=== PATIENT | female | born 1970 | race Caucasian/White ===

== ENCOUNTER 2016-07-25 08:09 | Emergency (ER) | payer SELFPAY ==
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
[2016-07-25 09:59] VITALS: BP 131/75
== END 2016-07-25 09:59 | disposition home or self-care (01) ==
LOC: ER 08:09
DX: M54.2 Cervicalgia (principal); R51 Headache; V87.7XXA Person injured in collision between other specified motor vehicles (traffic), initial encounter; F17.200 Nicotine dependence, unspecified, uncomplicated
CPT/HCPCS: 99283

== ENCOUNTER 2016-08-07 08:10 | Emergency (ER) | payer SELFPAY ==
--- NOTE | 2016-08-07 09:04 | ER Document Report ---
ED Extremity Problem, Lower - General Time seen by provider: 09:00 Mode of Arrival: Ambulatory Information source: Patient TRAVEL OUTSIDE OF THE [place] IN LAST 30 DAYS: No - HPI Patient complains to provider of: Pain Location: Leg Associated symptoms: Other - See above - General Chief Complaint: Leg Pain Stated Complaint: THIGH PAIN Notes: Patient is a 46 year old female who presents to the emergency department complaining of right thigh pain. Patient states that she was walking for about 3 hrs 3 days ago going up and down the stairs of the [facility] in [place]. Patient also complains of pain in her left buttock that is exacerbated by pressure. (ANGELI LEUNG) - Related Data Allergies/Adverse Reactions: divalproex sodium [From Depakote] Allergy (Verified 02/27/16 18:30) hydromorphone HCl [From Dilaudid] Allergy (Verified 02/27/16 18:30) morphine [Morphine] Allergy (Verified 02/27/16 18:30) nalbuphine HCl [From Nubain] Allergy (Verified 02/27/16 18:30) niacin [Niacin] Allergy (Verified 02/27/16 18:30) oxycodone HCl [From Percocet] Allergy (Verified 02/27/16 18:30) Past Medical History - General Information source: Patient - Social History Smoking Status: Unknown if Ever Smoked Family History: Reviewed & Not Pertinent, Arthritis, CAD - Father with heart attack at 55., CVA, DM, Hyperlipidemia, Hypertension, Thyroid Disfunction Patient has suicidal ideation: No Patient has homicidal ideation: No - Past Medical History Cardiac Medical History: Reports: Hx Hypercholesterolemia, Hx Hypertension Pulmonary Medical History: Reports: Hx Asthma Neurological Medical History: Reports: Hx Migraine Endocrine Medical History: Reports: Hx Diabetes Mellitus Type 2 Renal/ Medical History: Reports: Hx Ovarian Cysts GI Medical History: Reports: Hx Gastroesophageal Reflux Disease, Hx Ulcer Musculoskeltal Medical History: Reports Hx Arthritis Psychiatric Medical History: Reports: Hx Attention Deficit Hyperactivity Disorder Past Surgical History: Reports: Hx Adenoidectomy, Hx Section, Hx Cholecystectomy, Hx Gynecologic Surgery - Ovarian cyst resection, Hx Oral Surgery - [place] teeth, Hx Tonsillectomy, Hx Tubal Ligation - Immunizations Hx Diphtheria, Pertussis, Tetanus Vaccination: Yes Hx Pneumococcal Vaccination: 01/07/13 Review of Systems - Review of Systems Constitutional: No symptoms reported EENT: No symptoms reported Cardiovascular: No symptoms reported Respiratory: No symptoms reported Gastrointestinal: No symptoms reported Genitourinary: No symptoms reported Female Genitourinary: No symptoms reported Musculoskeletal: See HPI, Other - leg and buttock pain Skin: No symptoms reported Hematologic/Lymphatic: No symptoms reported Neurological/Psychological: No symptoms reported -: Yes All other systems reviewed and negative Physical Exam - Vital signs Interpretation: Normal - General General appearance: Appears well, Alert - HEENT Head: Normocephalic, Atraumatic - Respiratory Respiratory status: No respiratory distress - Abdominal Inspection: Other - overweight - Extremities General upper extremity: Normal inspection General lower extremity: Tender - Right anterior lateral thigh muscle is exquisitely tender to palpation. Left buttock, posterior hip aspect tender to palpation - Neurological Neuro grossly intact: Yes Cognition: Normal Orientation: AAOx4 Rocael Coma Scale Eye Opening: Spontaneous [place] Coma Scale Verbal: Oriented Rocael Coma Scale Motor: Obeys Commands Rocael Coma Scale Total: 15 Speech: Normal - Psychological Associated symptoms: Normal affect, Normal mood - Skin Skin Temperature: Warm Skin Moisture: Dry Skin Color: Normal Discharge - Discharge Clinical Impression: Muscle strain of right thigh Qualifiers: Encounter type: initial encounter Qualified Code(s): S76.911A - Strain of unspecified muscles, fascia and tendons at thigh level, right thigh, initial encounter Muscle strain of left gluteal region Qualifiers: Encounter type: initial encounter Qualified Code(s): S76.312A - Strain of muscle, fascia and tendon of the posterior muscle group at thigh level, left thigh, initial encounter Condition: Stable Disposition: HOME, SELF-CARE Additional Instructions: Muscle Strain: You have strained muscles. This often occurs with strenuous exertion, or during an injury that suddenly stretches the muscle. The seriousness of a strain varies. Some strains heal within days, others cause problems for months. X-rays cannot show a muscle strain. X-rays are taken only if symptoms suggest that a fracture could be present. The usual treatment of a muscle strain is rest and moist heat. The muscle can be used again once pain subsides. Your doctor will advise you if this will be necessary. REST. LIMIT WALKING. TAKE TYLENOL AND MOTRIN FOR PAIN. FOLLOW UP WITH A LOCAL MEDICAL DOCTOR IF NOT IMPROVING. RETURN TO THE EMERGENCY ROOM IF ANY NEW OR WORSENING SYMPTOMS. Forms: Return to Work Scribe Attestation: 08/07/16 09:58 I personally performed the services described in the documentation, reviewed and edited the documentation which was dictated to the scribe in my presence, and it accurately records my words and actions. (OLMAN COLINDRES) Scribe Documentation - Scribe Written by Scribe:: Angeli Leung, [facility], 08/07/162110 acting as scribe for :: Margaret
[2016-08-07 10:09] VITALS: BP 126/66
== END 2016-08-07 10:05 | disposition home or self-care (01) ==
LOC: ER 08:10
DX: S76.911A Strain of unspecified muscles, fascia and tendons at thigh level, right thigh, initial encounter (principal); S76.012A Strain of muscle, fascia and tendon of left hip, initial encounter; M79.651 Pain in right thigh; M25.552 Pain in left hip; X58.XXXA Exposure to other specified factors, initial encounter; I10 Essential (primary) hypertension; E11.9 Type 2 diabetes mellitus without complications; J45.909 Unspecified asthma, uncomplicated; Z88.8 Allergy status to other drugs, medicaments and biological substances; Z88.5 Allergy status to narcotic agent
CPT/HCPCS: 36415; 82550; 99283

== ENCOUNTER 2016-09-17 11:14 | Emergency (ER) | payer SELFPAY ==
[2016-09-17] MEDS ORDERED: MAG HYDROX/AL HYDROX/SIMETH SUSP 30 ML UDCUP PO ONE (11:48)
[2016-09-17] MEDS ORDERED: LIDOCAINE 2% VISCOUS SOLN 20 ML UDCUP PO ONE (11:48)
[2016-09-17] MEDS ORDERED: METOCLOPRAMIDE HCL ORAL SOLN 10 MG/10 ML UDCUP PO ONE (11:48)
--- NOTE | 2016-09-17 11:59 | ER Document Report ---
ED Medical Screen (RME) - General Chief Complaint: Abdominal Pain Stated Complaint: STOMACH PAIN Time Seen by Provider: 09/17/16 11:47 Notes: The patient is a 46-year-old female, past medical history gastric ulcer, cholecystectomy, tubal ligation, presents with intermittent epigastric pain and lower abdominal cramping over the past 2 weeks, worsening over the past 2 days. She is also having mild nausea during the syncopal episodes. She says she has had this pain in the past, but has never been this consistent. She has not followed up with GI. Moderate epigastric tenderness and suprapubic tenderness. I have greeted and performed a rapid initial assessment of this patient. A comprehensive ED assessment and evaluation of the patient, analysis of test results and completion of the medical decision making process will be conducted by additional ED providers. TRAVEL OUTSIDE OF THE [place] IN LAST 30 DAYS: No - Related Data Allergies/Adverse Reactions: divalproex sodium [From Depakote] Allergy (Verified 09/17/16 11:46) hydromorphone HCl [From Dilaudid] Allergy (Verified 09/17/16 11:46) morphine [Morphine] Allergy (Verified 09/17/16 11:46) nalbuphine HCl [From Nubain] Allergy (Verified 09/17/16 11:46) niacin [Niacin] Allergy (Verified 09/17/16 11:46) oxycodone HCl [From Percocet] Allergy (Verified 09/17/16 11:46) Past Medical History - Past Medical History Cardiac Medical History: Reports: Hx Hypercholesterolemia, Hx Hypertension Pulmonary Medical History: Reports: Hx Asthma Neurological Medical History: Reports: Hx Migraine Endocrine Medical History: Reports: Hx Diabetes Mellitus Type 2 Renal/ Medical History: Reports: Hx Ovarian Cysts. Denies: Hx Peritoneal Dialysis GI Medical History: Reports: Hx Gastroesophageal Reflux Disease, Hx Ulcer Musculoskeltal Medical History: Reports Hx Arthritis Psychiatric Medical History: Reports: Hx Attention Deficit Hyperactivity Disorder Past Surgical History: Reports: Hx Adenoidectomy, Hx Section, Hx Cholecystectomy, Hx Gynecologic Surgery - Ovarian cyst resection, Hx Oral Surgery - [place] teeth, Hx Tonsillectomy, Hx Tubal Ligation - Immunizations Hx Diphtheria, Pertussis, Tetanus Vaccination: Yes Physical Exam - Vital signs Vitals: Pulse Resp BP Pulse Ox 86 18 123/72 97 09/17/16 11:20 09/17/16 11:20 09/17/16 11:20 09/17/16 11:20 Course - Vital Signs Vital signs: Temp Pulse Resp BP Pulse Ox 97.9 F 86 18 123/72 97 09/17/16 11:23 09/17/16 11:20 09/17/16 11:20 09/17/16 11:20 09/17/16 11:20
[2016-09-17 12:08] LABS: ABSOLUTE BASOPHILS # (AUTO) 0.1 10^3/uL (0.0-0.2); ABSOLUTE EOSINOPHILS # (AUTO) 0.2 10^3/uL (0.0-0.6); ABSOLUTE LYMPHOCYTES (AUTO) 3.8 10^3/uL (0.5-4.7); ABSOLUTE MONOCYTES (AUTO) 0.9 10^3/uL (0.1-1.4); ABSOLUTE NEUT (AUTO) 5.7 10^3/uL (1.7-8.2); BASOPHILS % (AUTO) 1.3 % (0-2); EOSINOPHILS % (AUTO) 1.8 % (0-6); HEMATOCRIT 41.1 % (36.0-47.0); HEMOGLOBIN 14.3 g/dL (12.0-15.5); HGB HCT DIFFERENCE 1.8; LYMPHOCYTES % (AUTO) 35.6 % (13-45); MEAN CORPUSCULAR HEMOGLOBIN 28.6 pg (27.0-33.4); MEAN CORPUSCULAR HGB CONC 34.8 g/dL (32.0-36.0); MEAN CORPUSCULAR VOLUME 82 fl (80-97); MONOCYTES % (AUTO) 8.2 % (3-13); RED CELL DISTRIBUTION WIDTH 14.4 % (11.5-14.0); SEGMENTED NEUTROPHILS % (AUTO) 53.1 % (42-78); WHITE BLOOD COUNT 10.7 10^3/uL (4.0-10.5)
--- NOTE | 2016-09-17 12:17 | ER Document Report ---
ED GI/ - General Chief Complaint: Abdominal Pain Stated Complaint: STOMACH PAIN Time Seen by Provider: 09/17/16 11:47 Mode of Arrival: Ambulatory Information source: Patient Notes: Patient presents complaining of epigastric abdominal cramping off and on for the past month. Patient states that she has abdominal cramping that will be almost immediately followed by diarrhea. Patient states initially she would have symptoms about 1-2 times a week, then had symptoms every other day and now is having symptoms about 1-2 hours after eating meals. Patient averages abdominal pain and diarrhea episodes about 2 times a day now. Patient denies any cough or fever, vomiting, or urinary symptoms. Patient does report some mild nausea. Patient does report a previous history of reflux. And takes omeprazole [id number] for this. Patient was given a GI cocktail in triage and reports that the pain is much improved after this medication. TRAVEL OUTSIDE OF THE [place] IN LAST 30 DAYS: No - HPI Patient complains to provider of: Abdominal pain Onset: Other - One month Timing/Duration: Waxing and waning Quality of pain: Cramping Pain Level: 2 Location: Epigastric Vaginal bleeding (Compared to normal period): None Associated symptoms: Nausea. denies: Chest pain, Dysuria, Fever, Loss of appetite, Urinary hesitancy, Urinary frequency, Urinary retention, Urinary urgency, Vomiting Exacerbated by: Denies Relieved by: Denies Similar symptoms previously: Yes Recently seen / treated by doctor: No - Related Data Allergies/Adverse Reactions: divalproex sodium [From Depakote] Allergy (Verified 09/17/16 11:46) hydromorphone HCl [From Dilaudid] Allergy (Verified 09/17/16 11:46) morphine [Morphine] Allergy (Verified 09/17/16 11:46) nalbuphine HCl [From Nubain] Allergy (Verified 09/17/16 11:46) niacin [Niacin] Allergy (Verified 09/17/16 11:46) oxycodone HCl [From Percocet] Allergy (Verified 09/17/16 11:46) Past Medical History - General Information source: Patient Last Menstrual Period: yesterday - Social History Smoking Status: Current Every Day Smoker - Half pack per day Frequency of alcohol use: None Drug Abuse: None 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 Denies: Hx Peritoneal Dialysis GI Medical History: Reports: Hx Gastroesophageal Reflux Disease, Hx Ulcer Musculoskeltal Medical History: Reports Hx Arthritis Psychiatric Medical History: Reports: Hx Attention Deficit Hyperactivity Disorder Past Surgical History: Reports: Hx Adenoidectomy, Hx Section, Hx Cholecystectomy, Hx Gynecologic Surgery - Ovarian cyst resection, Hx Oral Surgery - [place] teeth, Hx Tonsillectomy, Hx Tubal Ligation - Immunizations Hx Diphtheria, Pertussis, Tetanus Vaccination: Yes Hx Pneumococcal Vaccination: 01/07/13 Review of Systems - Review of Systems Constitutional: No symptoms reported. denies: Fever, Recent illness EENT: No symptoms reported Cardiovascular: No symptoms reported. denies: Chest pain Respiratory: No symptoms reported. denies: Cough, Short of breath Gastrointestinal: Abdominal pain, Diarrhea - After abdominal cramping, Nausea. denies: Vomiting, Poor appetite Genitourinary: No symptoms reported. denies: Dysuria, Flank pain Female Genitourinary: No symptoms reported Musculoskeletal: No symptoms reported. denies: Back pain Skin: No symptoms reported Hematologic/Lymphatic: No symptoms reported Neurological/Psychological: No symptoms reported Physical Exam - Vital signs Vitals: Pulse Resp BP Pulse Ox 86 18 123/72 97 09/17/16 11:20 09/17/16 11:20 09/17/16 11:20 09/17/16 11:20 - General General appearance: Appears well, Alert In distress: None - HEENT Head: Normocephalic, Atraumatic Eyes: Normal Conjunctiva: Normal Nasal: Normal Mouth/Lips: Normal Mucous membranes: Normal Pharynx: Normal Neck: Normal, Supple. No: Lymphadenopathy - Respiratory Respiratory status: No respiratory distress Chest status: Nontender Breath sounds: Normal. No: Rales, Rhonchi, Stridor, Wheezing Chest palpation: Normal - Cardiovascular Rhythm: Regular Heart sounds: S1 appreciated, S2 appreciated Murmur: No - Abdominal Inspection: Obese Distension: No distension Bowel sounds: Normal Tenderness: Tender - Epigastric Organomegaly: No organomegaly - Back Back: Normal, Nontender. No: CVA tenderness - Extremities General upper extremity: Normal inspection, Normal strength. No: Edema General lower extremity: Normal inspection, Normal strength. No: Edema - Neurological Neuro grossly intact: Yes Cognition: Normal [place]ael Coma Scale Eye Opening: Spontaneous [place] Coma Scale Verbal: Oriented [place] Coma Scale Motor: Obeys Commands Rocael Coma Scale Total: 15 - Psychological Associated symptoms: Normal affect, Normal mood - Skin Skin Temperature: Warm Skin Moisture: Dry Skin Color: Normal Course - Re-evaluation Re-evalutation: 09/17/16 13:18 Patient reports a cramping that was completely resolved at this time. Consulted with Dr. Parrish regarding patient presentation, history and exam findings. Reviewed patient's diagnostic test results. Agrees with discharge plan of care, no additional testing advised this time. Suspect that patient's hematuria is likely result of her starting her menses and this being a clean-catch urine. Patient without any urinary complaints. Patient presents with abdominal pain without signs of peritonitis or other life- threatening or serious etiology. Patient appears stable for discharge and has been instructed to return immediately if the symptoms worsen in any way,or if not improved for reevaluation. The patient has been instructed to return if the symptoms worsen or change in any way. - Vital Signs Vital signs: Temp Pulse Resp BP Pulse Ox 97.8 F 76 20 118/68 96 09/17/16 13:35 09/17/16 13:35 09/17/16 13:35 09/17/16 13:35 09/17/16 13:35 - Laboratory Result Diagrams: 09/17/16 11:57 09/17/16 11:57 Laboratory results interpreted by me: 09/17/16 09/17/16 09/17/16 11:57 11:57 12:30 WBC 10.7 H RDW 14.4 H Glucose 195 H Urine Blood LARGE H Ur Leukocyte Esterase TRACE H 09/17/16 13:19 Labs- Entire Visit 09/17/16 09/17/16 09/17/16 11:57 11:57 11:57 WBC 10.7 H RBC 5.00 Hgb 14.3 Hct 41.1 MCV 82 MCH 28.6 MCHC 34.8 RDW 14.4 H Plt Count 273 Seg Neutrophils % 53.1 Lymphocytes % 35.6 Monocytes % 8.2 Eosinophils % 1.8 Basophils % 1.3 Absolute Neutrophils 5.7 Absolute Lymphocytes 3.8 Absolute Monocytes 0.9 Absolute Eosinophils 0.2 Absolute Basophils 0.1 Sodium 137.4 Potassium 4.1 Chloride 102 Carbon Dioxide 24 Anion Gap 11 BUN 11 Creatinine 0.69 Est GFR ( Amer) > 60 Est GFR (Non-Af Amer) > 60 Glucose 195 H Calcium 9.8 Total Bilirubin 0.5 Direct Bilirubin 0.4 Indirect Bilirubin Not Reportable Neonat Total Bilirubin Not Reportable AST 16 ALT 29 Alkaline Phosphatase 91 Creatine Kinase 42 Troponin I < 0.012 Total Protein 7.1 Albumin 4.1 Lipase 164.3 Urine Color Urine Appearance Urine pH Ur Specific [place] Urine Protein Urine Glucose (UA) Urine Ketones Urine Blood Urine Nitrite Urine Bilirubin Urine Urobilinogen Ur Leukocyte Esterase Urine WBC (Auto) Urine RBC (Auto) Squamous Epi Cells Auto Urine Mucus (Auto) Urine Ascorbic Acid 09/17/16 12:30 WBC RBC Hgb Hct MCV MCH MCHC RDW Plt Count Seg Neutrophils % Lymphocytes % Monocytes % Eosinophils % Basophils % Absolute Neutrophils Absolute Lymphocytes Absolute Monocytes Absolute Eosinophils Absolute Basophils Sodium Potassium Chloride Carbon Dioxide Anion Gap BUN Creatinine Est GFR ( Amer) Est GFR (Non-Af Amer) Glucose Calcium Total Bilirubin Direct Bilirubin Indirect Bilirubin Neonat Total Bilirubin AST ALT Alkaline Phosphatase Creatine Kinase Troponin I Total Protein Albumin Lipase Urine Color STRAW Urine Appearance SLIGHTLY-CLOUDY Urine pH 6.0 Ur Specific [place] 1.005 Urine Protein NEGATIVE Urine Glucose (UA) NEGATIVE Urine Ketones NEGATIVE Urine Blood LARGE H Urine Nitrite NEGATIVE Urine Bilirubin NEGATIVE Urine Urobilinogen NEGATIVE Ur Leukocyte Esterase TRACE H Urine WBC (Auto) 1 Urine RBC (Auto) 1 Squamous Epi Cells Auto 3 Urine Mucus (Auto) RARE Urine Ascorbic Acid NEGATIVE 09/17/16 18:29 - EKG Interpretation by Ca EKG shows normal: Sinus rhythm When compared to previous EKG there are: No significant change Discharge - Discharge Clinical Impression: Epigastric pain GERD (gastroesophageal reflux disease) Qualifiers: Esophagitis presence: esophagitis presence not specified Qualified Code(s): K21.9 - Gastro-esophageal reflux disease without esophagitis Diarrhea Qualifiers: Diarrhea type: unspecified type Qualified Code(s): R19.7 - Diarrhea, unspecified Condition: Stable Disposition: HOME, SELF-CARE Instructions: Antinausea Medication ([facility]), Abdominal Pain ([facility]), Reflux Disease (GERD) ([facility]), Diarrhea, Nonspecific ([facility]) Additional Instructions: Return immediately for any new or worsening symptoms Followup with your primary care provider, call tomorrow to make a followup appointment Obtain stool as an outpatient and bring to lab for further testing. Follow up with a senior talent acquisition specialist for further evaluation of continued abdominal pain Prescriptions: Promethazine HCl [Phenergan 25 mg Tablet] 25 mg PO Q6H PRN #10 tablet PRN Reason: Sucralfate [Carafate 1 gm Tablet] 1 gm PO ACHS #60 tablet Forms: Follow-Up Laboratory Testing, Return to Work Referrals: TYSON BELL MD [ACTIVE STAFF] - Follow up as needed ANDRY REYES MD [ACTIVE STAFF] - Follow up as needed [facility] [Provider Group] - 09/20/16
[2016-09-17 12:28] LABS: ALANINE AMINOTRANSFERASE 29 U/L (9-52); ALBUMIN 4.1 g/dL (3.5-5.0); ALKALINE PHOSPHATASE 91 U/L (38-126); ANION GAP 11 (5-19); ASPARTATE AMINO TRANSFERASE 16 U/L (14-36); BILIRUBIN,DIRECT 0.4 mg/dL (0.0-0.4); BILIRUBIN,TOTAL 0.5 mg/dL (0.2-1.3); BLOOD UREA NITROGEN 11 mg/dL (7-20); CALCIUM 9.8 mg/dL (8.4-10.2); CARBON DIOXIDE 24 mmol/L (22-30); CHLORIDE 102 mmol/L (98-107); CREATINE KINASE 42 U/L (30-135); CREATININE RESULT 0.69 mg/dL (0.52-1.25); GLUCOSE 195 mg/dL (75-110); LIPASE 164.3 U/L (23-300); POTASSIUM 4.1 mmol/L (3.6-5.0); SODIUM 137.4 mmol/L (137-145); TOTAL PROTEIN 7.1 g/dL (6.3-8.2)
[2016-09-17 12:57] LABS: APPEARANCE,URINE SLIGHTLY-CLOUDY; BILIRUBIN,URINE NEGATIVE (NEGATIVE); GLUCOSE, URINE NEGATIVE (NEGATIVE); KETONES,URINE NEGATIVE (NEGATIVE); LEUKOCYTE ESTERASE,URINE TRACE (NEGATIVE); NITRITE,URINE NEGATIVE (NEGATIVE); PROTEIN,URINE NEGATIVE (NEGATIVE); URINE SPECIFIC GRAVITY 1.005; UROBILINOGEN,URINE NEGATIVE mg/dL (<2.0)
[2016-09-17 13:38] VITALS: BP 118/68
--- NOTE | 2016-09-17 13:43 | EKG REPORT ---
SEVERITY:- BORDERLINE ECG - SINUS RHYTHM BORDERLINE R WAVE PROGRESSION, ANTERIOR LEADS : Confirmed by: Michael Fitzpatrick 17-Sep-2016 13:42:22
== END 2016-09-17 13:37 | disposition home or self-care (01) ==
LOC: ER 11:14
DX: K21.9 Gastro-esophageal reflux disease without esophagitis (principal); R10.13 Epigastric pain; R19.7 Diarrhea, unspecified; R11.0 Nausea; I10 Essential (primary) hypertension; F17.200 Nicotine dependence, unspecified, uncomplicated; E11.9 Type 2 diabetes mellitus without complications; J45.909 Unspecified asthma, uncomplicated; Z79.899 Other long term (current) drug therapy; Z88.8 Allergy status to other drugs, medicaments and biological substances; Z88.5 Allergy status to narcotic agent; Z90.49 Acquired absence of other specified parts of digestive tract
CPT/HCPCS: 93005; 99284; 36415; 82550; 83690; 85025; 80076; 80048; 81001; 84484; 93010; J3490

== ENCOUNTER 2016-09-20 10:42 | Emergency (ER) | payer SELFPAY ==
[2016-09-20 11:13] VITALS: BP 109/70
--- NOTE | 2016-09-20 11:29 | ER Document Report ---
ED General - General Mode of Arrival: Ambulatory Information source: Patient TRAVEL OUTSIDE OF THE [place] IN LAST 30 DAYS: No - HPI Onset: Yesterday Recently seen / treated by doctor: Yes - General Chief Complaint: Headache Stated Complaint: HEADACHE/COUGH Time Seen by Provider: 09/20/16 11:25 Notes: Patient is a 46-year-old female that presents to the emergency department today with complaints of cold-like symptoms including headache, sore throat, and cough. Patient states all the above mentioned symptoms began last night. Patient is a smoker, 1/2 ppd. Patient denies any recent sick contacts. (KEKE GARCIA) - Related Data Allergies/Adverse Reactions: divalproex sodium [From Depakote] Allergy (Verified 09/20/16 11:09) hydromorphone HCl [From Dilaudid] Allergy (Verified 09/20/16 11:09) morphine [Morphine] Allergy (Verified 09/20/16 11:09) nalbuphine HCl [From Nubain] Allergy (Verified 09/20/16 11:09) niacin [Niacin] Allergy (Verified 09/20/16 11:09) oxycodone HCl [From Percocet] Allergy (Verified 09/20/16 11:09) Past Medical History - General Information source: Patient, [facility], [facility] Records - Social History Smoking Status: Current Every Day Smoker Cigarette use (# per day): Yes Frequency of alcohol use: None Drug Abuse: None Lives with: Family Family History: Reviewed & Not Pertinent, Arthritis, CAD - Father with heart attack at 55., CVA, DM, Hyperlipidemia, Hypertension, Thyroid Disfunction Patient has suicidal ideation: No - Past Medical History Cardiac Medical History: Reports: Hx Hypercholesterolemia, Hx Hypertension Pulmonary Medical History: Reports: Hx Asthma Neurological Medical History: Reports: Hx Migraine Endocrine Medical History: Reports: Hx Diabetes Mellitus Type 2 Renal/ Medical History: Reports: Hx Ovarian Cysts GI Medical History: Reports: Hx Gastroesophageal Reflux Disease, Hx Ulcer Musculoskeltal Medical History: Reports Hx Arthritis Psychiatric Medical History: Reports: Hx Attention Deficit Hyperactivity Disorder Past Surgical History: Reports: Hx Adenoidectomy, Hx Section, Hx Cholecystectomy, Hx Gynecologic Surgery - Ovarian cyst resection, Hx Oral Surgery - [place] teeth, Hx Tonsillectomy, Hx Tubal Ligation - Immunizations Hx Diphtheria, Pertussis, Tetanus Vaccination: Yes Hx Pneumococcal Vaccination: 01/07/13 Review of Systems - Review of Systems Constitutional: No symptoms reported EENT: See HPI, Throat pain Cardiovascular: No symptoms reported Respiratory: See HPI, Cough Gastrointestinal: No symptoms reported Genitourinary: No symptoms reported Female Genitourinary: No symptoms reported Musculoskeletal: No symptoms reported Skin: No symptoms reported Hematologic/Lymphatic: No symptoms reported Neurological/Psychological: See HPI, Headaches -: Yes All other systems reviewed and negative Physical Exam - Vital signs Vitals: Temp Pulse Resp BP Pulse Ox 98.1 F 80 18 109/70 98 09/20/16 11:09 09/20/16 11:09 09/20/16 11:09 09/20/16 11:09 09/20/16 11:09 - Notes Notes: Physical Exam: General: Alert, appears uncomfortable. HEENT: Normocephalic. Atraumatic. PERRL. Extraocular movements intact. Oropharynx clear. No posterior pharynx erythema or exudate. Neck: Supple. Non-tender. Respiratory: No respiratory distress. Clear and equal breath sounds bilaterally. Cardiovascular: Regular rate and rhythm. Abdominal: Normal Inspection. Non-tender. No distension. Normal Bowel Sounds. Back: Non-tender. No deformity or step off. Extremities: Moves all four extremities. Upper extremities: Normal inspection. Normal ROM. Lower extremities: Normal inspection. No edema. Normal ROM. Neurological: Normal cognition. AAOx4. Normal speech. Psychological: Normal affect. Normal Mood. Skin: Warm. Dry. Normal color. (KEKE GARCIA) Course - Re-evaluation Re-evalutation: 09/20/16 12:59 Patient presents with symptoms of an upper respiratory infection. Vital signs are stable. No difficulty breathing. Throat is clear. Patient will need a work note will be given Tylenol codeine for headache and sore throat. She may take [id number] medications as needed. Stable for discharge. Return if any worsening or concerning symptoms. Agrees with this plan. (SKYLAR PHELAN) - Vital Signs Vital signs: Temp Pulse Resp BP Pulse Ox 98.1 F 78 18 109/70 97 09/20/16 11:12 09/20/16 11:12 09/20/16 11:12 09/20/16 11:12 09/20/16 11:12 Discharge - Discharge Clinical Impression: Upper respiratory infection Qualifiers: URI type: unspecified URI Qualified Code(s): J06.9 - Acute upper respiratory infection, unspecified Condition: Stable Disposition: HOME, SELF-CARE Instructions: Upper Respiratory Illness ([facility]) Prescriptions: Acetaminophen with Codeine [Tylenol with Codeine #3 Tablet] 1 tab PO BIDP PRN # 10 tab PRN Reason: Forms: Return to Work Scribe Attestation: 09/20/16 13:00 I personally performed the services described in the documentation, reviewed and edited the documentation which was dictated to the scribe in my presence, and it accurately records my words and actions. (SKYLAR PHELAN) Scribe Documentation - Scribe Written by Mikayla:: Mikayla Rushing, 09/20/2016 1142 acting as scribe for :: Elizabeth
== END 2016-09-20 11:29 | disposition home or self-care (01) ==
LOC: ER 10:42
DX: J06.9 Acute upper respiratory infection, unspecified (principal); R51 Headache; R05 Cough; F17.210 Nicotine dependence, cigarettes, uncomplicated; E78.00 Pure hypercholesterolemia, unspecified; I10 Essential (primary) hypertension; E11.9 Type 2 diabetes mellitus without complications; K21.9 Gastro-esophageal reflux disease without esophagitis; Z88.6 Allergy status to analgesic agent; Z90.49 Acquired absence of other specified parts of digestive tract; Z98.51 Tubal ligation status
CPT/HCPCS: 99283

== ENCOUNTER 2016-09-27 15:22 | Emergency (ER) | payer SELFPAY ==
[2016-09-27] MEDS ORDERED: IPRATROPIUM/ALBUTEROL 0.5-2.5 MG/3 ML AMPUL NEB ONE (16:29)
--- NOTE | 2016-09-27 16:30 | ER Document Report ---
ED General - General Chief Complaint: Cough, wheezing, ear pressure Stated Complaint: DIFFICULTY BREATHING Time Seen by Provider: 09/27/16 16:15 Mode of Arrival: Ambulatory Information source: Patient Notes: Patient is a 46 year old female who presents with 1 week history of productive cough (yellow sputum), intermittent wheezing, right ear pain/pressure. She was seen here 1 week ago for head cold and states she isn't feeling any better. Hx of asthma/COPD, 1/2 PPD smoker. She has tried OTC medications with no relief. Denies any fever, chills, shortness of breath, rhinorrhea, congestion, n/v/d. TRAVEL OUTSIDE OF THE [place] IN LAST 30 DAYS: No - Related Data Allergies/Adverse Reactions: divalproex sodium [From Depakote] Allergy (Verified 09/20/16 11:09) hydromorphone HCl [From Dilaudid] Allergy (Verified 09/20/16 11:09) morphine [Morphine] Allergy (Verified 09/20/16 11:09) nalbuphine HCl [From Nubain] Allergy (Verified 09/20/16 11:09) niacin [Niacin] Allergy (Verified 09/20/16 11:09) oxycodone HCl [From Percocet] Allergy (Verified 09/20/16 11:09) Past Medical History - General Information source: Patient - Social History Smoking Status: Current Every Day Smoker Family History: Reviewed & Not Pertinent, Arthritis, CAD - Father with heart attack at 55., CVA, DM, Hyperlipidemia, Hypertension, Thyroid Disfunction - Past Medical History Cardiac Medical History: Reports: Hx Hypercholesterolemia, Hx Hypertension Pulmonary Medical History: Reports: Hx Asthma Neurological Medical History: Reports: Hx Migraine Endocrine Medical History: Reports: Hx Diabetes Mellitus Type 2 Renal/ Medical History: Reports: Hx Ovarian Cysts. Denies: Hx Peritoneal Dialysis GI Medical History: Reports: Hx Gastroesophageal Reflux Disease, Hx Ulcer Musculoskeltal Medical History: Reports Hx Arthritis Psychiatric Medical History: Reports: Hx Attention Deficit Hyperactivity Disorder Past Surgical History: Reports: Hx Adenoidectomy, Hx Section, Hx Cholecystectomy, Hx Gynecologic Surgery - Ovarian cyst resection, Hx Oral Surgery - [place] teeth, Hx Tonsillectomy, Hx Tubal Ligation - Immunizations Hx Diphtheria, Pertussis, Tetanus Vaccination: Yes Hx Pneumococcal Vaccination: 09/01/13 Review of Systems - Review of Systems Constitutional: See HPI EENT: See HPI Cardiovascular: No symptoms reported Respiratory: See HPI Gastrointestinal: No symptoms reported Genitourinary: No symptoms reported Female Genitourinary: No symptoms reported Musculoskeletal: No symptoms reported Skin: No symptoms reported Hematologic/Lymphatic: No symptoms reported Neurological/Psychological: No symptoms reported Physical Exam - Vital signs Vitals: Temp Pulse Resp BP Pulse Ox 98.0 F 100 20 142/90 H 97 09/27/16 15:36 09/27/16 15:36 09/27/16 15:36 09/27/16 15:36 09/27/16 15:36 Interpretation: Hypertensive - Notes Notes: PHYSICAL EXAM: CONSTITUTIONAL: Alert and oriented, well-appearing and in no acute distress. HENT: Normocephalic, atraumatic. Ear canals without erythema or foreign body, L TMs dull with decreased visualization of landmarks, R TM with air-fluid levels and bulging. Nares clear without erythema, septal hematoma or deviation, airway patent. Oropharynx clear without erythema, tonsilar exudate or malocclusion. Trachea midline. Uvula midline. Moist mucous membranes. EYES: Pupils equal round and reactive to light, EOM intact. Sclera anicteric, conjunctiva are normal. No entrapment. NECK: supple without lymphadenopathy. No midline tenderness or paraspinous muscle spasms. No step-offs or deformities. ROM intact. HEART: Regular rate and rhythm without murmurs. LUNGS: CTAB and equal. BRUCE expiratory wheezing with coarse breath sounds throughout. GI: Normactive bowel sounds. Nontender, non-distended. No organomegaly. no CVAT. EXTREMITIES: Normal range of motion, no pitting edema. No cyanosis. Cap Refill < 3 seconds. NEURO: Cranial nerves grossly intact. Normal sensory/motor exams. PSYCH: Normal mood, normal affect. SKIN: Warm and dry. Normal turgor. No rashes or lesions noted. Course - Re-evaluation Re-evalutation: 09/27/16 17:43 Patient seen and examined. BRUCE wheezing with coarse breath sounds bilaterally. No respiratory distress noted. Given 1 duoneb, breath sounds improved following treatment. Xray negative for acute cardiopulmonary disease. Due to patient history of smoking, will treat as bronchitis with abx and steroids. Discussed smoking cessation. At this time, will discharge with return precautions and follow-up recommendations. Verbal discharge instructions given at the bedside and opportunity for questions given. Medication warnings reviewed. Patient is in agreement with this plan and has verbalized understanding of return precautions and the need for primary care follow-up in the next 24-72 hours. - Vital Signs Vital signs: Temp Pulse Resp BP Pulse Ox 98.0 F 100 20 142/90 H 97 09/27/16 15:36 09/27/16 15:36 09/27/16 15:36 09/27/16 15:36 09/27/16 15:36 - Diagnostic Test Radiology reviewed: Image reviewed, Reports reviewed Discharge - Discharge Clinical Impression: Bronchitis, Upper respiratory disease Otitis media Qualifiers: Otitis media type: suppurative Laterality: right Chronicity: acute Recurrence: not specified as recurrent Spontaneous tympanic membrane rupture: without spontaneous rupture Qualified Code(s): H66.001 - Acute suppurative otitis media without spontaneous rupture of ear drum, right ear Condition: Stable Additional Instructions: BRONCHITIS: You have acute bronchitis. This disease is an infection or inflammation of the air passageways in your lungs. Symptoms usually include cough, low grade fever, shortness of breath, and wheezing. The cough usually persists for a couple of weeks. Most cases of bronchitis get better without antibiotics. We prescribe antibiotics when we believe bacteria are damaging your airways, or if there's high risk the bronchitis will worsen into pneumonia. Increase your fluid intake. A cool mist humidifier may make your lungs more comfortable. An expectorant (cough medicine that loosens phlegm) can help. If you smoke, STOP!!! Recovery from bronchitis can be somewhat slow, but you should see improvement within a day or two. Repeated episodes of bronchitis may result in lung damage -- for example, chronic bronchitis, recurrent pneumonias, or emphysema. Call the doctor if you develop increasing fever, shortness of breath, chest pain, bloody sputum, or otherwise worsen. If you have not improved at all after several days, contact the physician. BRONCHITIS WITH BRONCHOSPASM (WHEEZING): You have bronchitis with bronchospasm (wheezing). Sometimes people develop wheezing with a chest cold. This occurs either because of an underlying tendency toward asthma or because the virus itself irritates the bronchial tubes. This irritation causes cough, shortness of breath, and wheezing. Emergency treatment of bronchospasm may include adrenaline shots or bronchodilator aerosol. You may feel lightheaded and have a rapid pulse for an hour or two. Rest and get plenty of fluids. At home, we'll treat you with a bronchodilator inhaler. Corticosteroids may be required for some patients. Until you recover, avoid chemical fumes, dusts, pollens, and exercising in very cold or dry air. If you smoke, stop now! Most cases of bronchitis get better without antibiotics. We prescribe antibiotics when we believe bacteria are damaging your airways, or if there's high risk the bronchitis will worsen into pneumonia. Increase your fluid intake. A cool mist humidifier may make your lungs more comfortable. An expectorant (cough medicine that loosens phlegm) can help. Repeated episodes of bronchitis and bronchospasm may result in lung damage -- for example, chronic bronchitis, recurrent pneumonias, or emphysema. If you develop a fever, increased wheezing, chest pain, or severe shortness of breath, you should contact the doctor immediately. DECONGESTANT MEDICATION: A decongestant medicine has been prescribed. Often this medicine is combined in the same tablet with an antihistamine or expectorant. This type of medicine is helpful in treating a bad cold or sinus condition, as well as in treatment of the nasal congestion of hay fever. It is not of much benefit for lung infections. Decongestant medicines are related to stimulants. They can cause an increase in blood pressure and heart rate. Persons with heart disease and high blood pressure should not take decongestants without discussing this with the physician. If you develop palpitations, chest pain, headache, or tremors, stop the medicine and consult your physician. COUGH-SUPPRESSANT & EXPECTORANT MEDICATION: You are to use a cough medication as needed for relief of symptoms. This medicine is a combination of an expectorant (to make the mucous thinner and more easily "coughed up") and a cough suppressant (to reduce the frequency of coughing). The cough-suppressant medicine is related to narcotics. You may experience mild nausea and sleepiness. Some patients who are very sensitive to narcotics may have stomach pain from this medicine. Taking the medicine with food reduces these side effects. Do not drive or work with machinery until you know how this medicine affects you. The expectorant should have no side effects. Iodine-containing expectorants (such as organidin) should not be taken by persons with active thyroid disease unless approved by your doctor. Call the doctor if you develop shortness of breath, hives, rash, itching, lightheadedness, or severe nausea and vomiting. INHALED BRONCHODILATORS: You have received a treatment of and/or prescription for an inhaled bronchodilator -- a medication which stimulates the airways in the lung to dilate. This improves the flow of air in asthma, bronchitis, and emphysema. These medicines have some similarity to adrenaline, and can cause similar side effects: shakiness, racing heart, and a sense of nervousness. These side effects decrease with time. Contact your doctor if these side effects are severe. Do not over-use the medicine. Too-frequent use of the inhaler may make it ineffective. Call your doctor if the inhaler is not controlling your symptoms at the prescribed doses. STEROID MEDICATION: You have been given an injection of or oral medicine of the cortisone/ steroid class. This medication is used to control inflammation or allergy. Hal t is usually only given for a short period of time, until the acute process subsides. There are usually no side effects from short-term use of cortisone-like medications. Some persons feel an increased sense of well-being and are not sleepy at bedtime. Long-term use of cortisone medications is best avoided, unless required for a severe condition. If your condition does not remit, or relapses after the course of corticosteroid medication, you should consult your physician. ANTIBIOTIC THERAPY: You have been given an antibiotic prescription. It's important that you take all the medication, unless instructed otherwise by your physician. Failure to complete the entire course can result in relapse of your condition. Common side effects of antibiotics include nausea, intestinal cramping, or diarrhea. Women may develop vaginal yeast infections, and babies can get yeast (thrush) in the mouth following the use of antibiotics. Contact your physician if you develop significant side effects from this medication. Allergy to this antibiotic can result in hives, wheezing, faintness, or itching. If symptoms of allergy occur, stop the medication and call your doctor. AZITHROMYCIN: Azithromycin (Zithromax) is a broad spectrum antibiotic in the same class as erythromycin. It can treat a variety of bacterial infections, but is most frequently used for respiratory infections. Azithromycin is extremely long-lasting. It accumulates in body tissues and continues to kill bacteria for many days. In order to improve absorption, Azithromycin should be taken at least one hour before or two hours after a meal. It does not have the same strong tendency to upset the stomach as erythromycin and is usually very well tolerated. Patients who have had a rash or other true allergic reactions to erythromycin should not take this medication. Call if you develop gastrointestinal distress, severe diarrhea, rash, hives, itching, or shortness of breath. USE OF ACETAMINOPHEN (Tylenol): Acetaminophen may be taken for pain relief or fever control. It's much safer than aspirin, offering a wider range of "safe" dosages. It is safe during . Some brand names are Tylenol, Panadol, Datril, Anacin 3, Tempra, and Liquiprin. Acetaminophen can be repeated every four hours. The following are maximum recommended dosages: >89 pounds or adults 650 mg to 900 mg Acetaminophen can be repeated every four hours. Maximum dose not to exceed 4000 mg a day. SMOKING: If you smoke, you should stop smoking. The tar and chemicals in cigarette smoke are harmful. Smoking has been shown to cause: emphysema chronic bronchitis lung cancer mouth and throat cancer stomach and pancreas cancer premature aging defects In addition, smoking increases ear and lung infections in children of smokers. FOLLOW-UP CARE: If you have been referred to a physician for follow-up care, call the physician s office for an appointment as you were instructed or within the next two days. If you experience worsening or a significant change in your symptoms, notify the physician immediately or return to the Emergency Department at any time for re-evaluation. Prescriptions: Pseudoephedrine HCl [Sudafed] 30 mg PO Q6HP PRN #8 tablet PRN Reason: Guaifenesin/D-Methorphan Hb [Guaifenesin-Dextromethorph Tab] 1 each PO Q12HP PRN #8 tab.sr.12h PRN Reason: Cough Albuterol Sulfate [Proair HFA Inhalation Aerosol 8.5 gm MDI] 2 puff IH Q4H PRN # 1 mdi PRN Reason: Azithromycin [Zithromax 250 mg Tablet] 250 mg PO ASDIR #6 tablet Ibuprofen [Motrin 600 Mg Tablet] 600 mg PO TID #15 tablet Forms: Elevated Blood Pressure
--- NOTE | 2016-09-27 17:25 | RADIOLOGY REPORT (SQ) ---
EXAM DESCRIPTION: CHEST PA/LAT COMPLETED DATE/TIME: 09/27/2016 5:01 pm REASON FOR STUDY: wheezing, r/o pneumonia COMPARISON: 05/14/2013 EXAM PARAMETERS: NUMBER OF VIEWS: two views TECHNIQUE: Digital Frontal and Lateral radiographic views of the chest acquired. RADIATION DOSE: NA LIMITATIONS: none FINDINGS: LUNGS AND PLEURA: No opacities, masses or pneumothorax. No pleural effusion. MEDIASTINUM AND HILAR STRUCTURES: No masses or contour abnormalities. HEART AND VASCULAR STRUCTURES: Heart normal size. No evidence for failure. BONES: No acute findings. HARDWARE: None in the chest. OTHER: No other significant finding. IMPRESSION: NO SIGNIFICANT RADIOGRAPHIC FINDING IN THE CHEST. TECHNICAL DOCUMENTATION: JOB ID: [id number] [email or web address]- All Rights Reserved
[2016-09-27 18:37] VITALS: BP 139/79
== END 2016-09-27 18:37 | disposition home or self-care (01) ==
LOC: ER 15:22
DX: J40 Bronchitis, not specified as acute or chronic (principal); J06.9 Acute upper respiratory infection, unspecified; H66.001 Acute suppurative otitis media without spontaneous rupture of ear drum, right ear; F17.200 Nicotine dependence, unspecified, uncomplicated; E78.00 Pure hypercholesterolemia, unspecified; I10 Essential (primary) hypertension; E11.9 Type 2 diabetes mellitus without complications; K21.9 Gastro-esophageal reflux disease without esophagitis; Z88.6 Allergy status to analgesic agent; Z90.49 Acquired absence of other specified parts of digestive tract; Z98.51 Tubal ligation status
CPT/HCPCS: 94640; 99284; 71020; J7620

== ENCOUNTER 2017-01-10 08:00 | Emergency (ER) | payer SELFPAY ==
[2017-01-10 08:05] VITALS: BP 141/74
--- NOTE | 2017-01-10 08:38 | ER Document Report ---
HPI - HPI Pain Level: Denies Notes: Patient is a 46-year-old female with a history of hypertension, diabetes, tachycardia who presents the ED for a medication refill for her blood pressure. Patient is requesting lisinopril/HCTZ. Patient states that she is scheduled for an appointment on 02 February. Patient states that she is tolerating the medicine well without any side effects to note. Patient states that she is status quo from her previous visits. She still eating and drinking without any difficulties. She has not noticed any dizziness, changes in vision, or dysuria. Denies any headache, fever, URI, sore throat, chest pain, palpitations , syncope, cough, shortness of breath, wheeze, dyspnea, abdominal pain, nausea/ vomiting/diarrhea, urinary retention, hematuria, or rash. - ROS Notes: REVIEW OF SYSTEMS: CONSTITUTIONAL : Denies fever, chills, or sweats. Denies recent illness. EENT: Denies eye, ear, throat, or mouth pain or symptoms. Denies nasal or sinus congestion or discharge. Denies throat, tongue, or mouth swelling or difficulty swallowing. CARDIOVASCULAR: Denies chest pain. Denies palpitations or racing or irregular heart beat. Denies ankle edema. RESPIRATORY: Denies cough, cold, or chest congestion. Denies shortness of breath, difficulty breathing, or wheezing. GASTROINTESTINAL: Denies abdominal pain or distention. Denies nausea, vomiting , or diarrhea. Denies blood in vomitus, stools, or per rectum. Denies black, tarry stools. Denies constipation. GENITOURINARY: Denies difficulty urinating, painful urination, burning, frequency, blood in urine, or discharge. MUSCULOSKELETAL: Denies back or neck pain or stiffness. Denies joint pain or swelling. SKIN: Denies rash, lesions or sores. NEUROLOGICAL: Denies confusion or altered mental status. Denies passing out or loss of consciousness. Denies dizziness or lightheadedness. Denies headache. Denies weakness or paralysis or loss of use of either side. Denies problems with gait or speech. Denies sensory loss, numbness, or tingling. ALL OTHER SYSTEMS REVIEWED AND NEGATIVE. Dictation was performed using [employer] voice recognition software - CARDIOVASCULAR Cardiovascular: DENIES: Chest pain - REPRODUCTIVE Reproductive: DENIES: : - DERM Skin Color: Normal Past Medical History - Social History Smoking Status: Current Every Day Smoker Frequency of alcohol use: None Drug Abuse: None Family History: Reviewed & Not Pertinent, Arthritis, CAD - Father with heart attack at 55., CVA, DM, Hyperlipidemia, Hypertension, Thyroid Disfunction Patient has suicidal ideation: No Patient has homicidal ideation: No - Past Medical History Cardiac Medical History: Reports: Hx Hypercholesterolemia, Hx Hypertension Pulmonary Medical History: Reports: Hx Asthma Neurological Medical History: Reports: Hx Migraine Endocrine Medical History: Reports: Hx Diabetes Mellitus Type 2 Renal/ Medical History: Reports: Hx Ovarian Cysts. Denies: Hx Peritoneal Dialysis GI Medical History: Reports: Hx Gastroesophageal Reflux Disease, Hx Ulcer Musculoskeltal Medical History: Reports Hx Arthritis Psychiatric Medical History: Reports: Hx Attention Deficit Hyperactivity Disorder Past Surgical History: Reports: Hx Adenoidectomy, Hx Section, Hx Cholecystectomy, Hx Gynecologic Surgery - Ovarian cyst resection, Hx Oral Surgery - [place] teeth, Hx Tonsillectomy, Hx Tubal Ligation - Immunizations Hx Diphtheria, Pertussis, Tetanus Vaccination: Yes Hx Pneumococcal Vaccination: 01/07/13 Vertical Provider Document - CONSTITUTIONAL Agree With Documented VS: Yes Notes: PHYSICAL EXAMINATION: GENERAL: Well-appearing, well-nourished and in no acute distress. LUNGS: Breath sounds clear to auscultation bilaterally and equal. No wheezes rales or rhonchi. HEART: Regular rate and rhythm without murmurs, rubs, gallops. ABDOMEN: Soft, nontender, nondistended abdomen. No guarding, no rebound. No masses appreciated. Normal bowel sounds present. No CVA tenderness bilaterally. Extremities: No cyanosis, clubbing, or edema b/l. Peripheral pulses 2+. Capillary refill less than 3 seconds. NEUROLOGICAL: Normal speech, normal gait. Normal sensory, motor exams PSYCH: Normal mood, normal affect. SKIN: Warm, Dry, normal turgor, no rashes or lesions noted. - INFECTION CONTROL TRAVEL OUTSIDE OF THE [place] IN LAST 30 DAYS: No - RESPIRATORY O2 Sat by Pulse Oximetry: 98 Course - Re-evaluation Re-evalutation: 01/10/17 08:40 Patient is an afebrile, well-hydrated, 46-year-old female presents the ED with history of hypertension for medication refill. Vitals are stable. PE otherwise unremarkable. Low suspicion/risk for any ACS, PE, pneumothorax, pericarditis, dissection, or other systemic emergent condition at this time. Patient is aware that her condition can change from initial presentation and she needs to monitor symptoms closely and seek medical attention if any acute changes. Refill provided for her lisinopril/HCTZ. Patient is to keep her scheduled follow-up with her PCM in about 3 weeks. Return to the ED with any worsening/concerning symptoms otherwise as reviewed in discharge. Patient is in agreement. - Vital Signs Vital signs: Temp Pulse Resp BP Pulse Ox 97.8 F 71 16 141/74 H 98 01/10/17 08:03 01/10/17 08:03 01/10/17 08:03 01/10/17 08:03 01/10/17 08:03 Discharge - Discharge Clinical Impression: Hypertension Qualifiers: Hypertension type: unspecified Qualified Code(s): I10 - Essential (primary) hypertension Condition: Stable Disposition: HOME, SELF-CARE Instructions: High Blood Pressure ([facility]) Additional Instructions: Take medication as directed Low-sodium diet Monitor blood pressure twice daily and keep a log Recheck with your PCM as scheduled on February 02 Return to the ED with any worsening symptoms and/or development of fever, headache, changes in vision, dizziness, chest pain, palpitations, syncope, shortness of breath, trouble breathing, abdominal pain, n/v/d, blood in stool/ urine, dysuria, or other worsening symptoms that are concerning to you. Prescriptions: Lisinopril/Hydrochlorothiazide [Lisinopril-Hctz 10-12.5 mg Tab] 1 each PO DAILY #30 tablet Forms: Elevated Blood Pressure, Smoking Cessation Education Referrals: [facility] [Provider Group] - Follow up as needed [facility] [Provider Group] - Follow up as needed
== END 2017-01-10 08:45 | disposition home or self-care (01) ==
LOC: ER 08:00
DX: Z76.0 Encounter for issue of repeat prescription (principal); I10 Essential (primary) hypertension; E11.9 Type 2 diabetes mellitus without complications; J45.909 Unspecified asthma, uncomplicated; F17.200 Nicotine dependence, unspecified, uncomplicated
CPT/HCPCS: 99283

== ENCOUNTER 2017-04-01 11:50 | Emergency (ER) | payer SELFPAY ==
[2017-04-01 12:02] VITALS: BP 141/71
--- NOTE | 2017-04-01 12:23 | ER Document Report ---
HPI - HPI Patient complains to provider of: medication refill Pain Level: Denies Context: Patient is a 46 year old female who presents to the ED for a medication refill. Patient states she has hypertension and has been taking metoprolol once a day for it. She states she ran out yesterday and needs a refill. Otherwise denies any symptoms or additional complaints - REPRODUCTIVE Reproductive: DENIES: : Past Medical History - Social History Smoking Status: Current Every Day Smoker Family History: Reviewed & Not Pertinent, Arthritis, CAD - Father with heart attack at 55., CVA, DM, Hyperlipidemia, Hypertension, Thyroid Disfunction - Past Medical History Cardiac Medical History: Reports: Hx Hypercholesterolemia, Hx Hypertension Pulmonary Medical History: Reports: Hx Asthma Neurological Medical History: Reports: Hx Migraine Endocrine Medical History: Reports: Hx Diabetes Mellitus Type 2 Renal/ Medical History: Reports: Hx Ovarian Cysts. Denies: Hx Peritoneal Dialysis GI Medical History: Reports: Hx Gastroesophageal Reflux Disease, Hx Ulcer Musculoskeltal Medical History: Reports Hx Arthritis Psychiatric Medical History: Reports: Hx Attention Deficit Hyperactivity Disorder Past Surgical History: Reports: Hx Adenoidectomy, Hx Section, Hx Cholecystectomy, Hx Gynecologic Surgery - Ovarian cyst resection, Hx Oral Surgery - [place] teeth, Hx Tonsillectomy, Hx Tubal Ligation - Immunizations Hx Diphtheria, Pertussis, Tetanus Vaccination: Yes Hx Pneumococcal Vaccination: 01/07/13 Vertical Provider Document - CONSTITUTIONAL Agree With Documented VS: Yes Notes: PHYSICAL EXAM GENERAL: Alert, interacts well. HEAD: Normocephalic, atraumatic. EYES: Pupils equal, round, and reactive to light. Extraocular movements intact. LUNGS: Clear to auscultation bilaterally, no wheezes, rales, or rhonchi. No respiratory distress. HEART: Regular rate and rhythm. No murmurs, gallops, or rubs. NEUROLOGICAL: Alert and oriented x4. Normal speech. Stable gait PSYCH: Normal affect, normal mood. SKIN: Warm, dry, normal turgor. No rashes or lesions noted. - INFECTION CONTROL TRAVEL OUTSIDE OF THE [place] IN LAST 30 DAYS: No - RESPIRATORY O2 Sat by Pulse Oximetry: 97 Course - Re-evaluation Re-evalutation: 04/01/17 12:24 Patient is a 46-year-old female who is hemodynamically stable, no acute distress afebrile. Presents for medication refill. Denies any chest pain, headache, back pain or abdominal pain at this time. Patient given prescription for metoprolol and [facility]. Patient agrees with plan and stable for discharge home. - Vital Signs Vital signs: Temp Pulse Resp BP Pulse Ox 97.6 F 87 20 141/71 H 97 04/01/17 11:56 04/01/17 11:56 04/01/17 11:56 04/01/17 11:56 04/01/17 11:56 Discharge - Discharge Clinical Impression: Well adult health check Condition: Good Disposition: HOME, SELF-CARE Instructions: High Blood Pressure ([facility]) Prescriptions: Metoprolol Tartrate 50 mg PO DAILY #30 tablet [facility]: [facility] [NO LOCAL MD] - Follow up in 1 week
== END 2017-04-01 12:26 | disposition home or self-care (01) ==
LOC: ER 11:50
DX: Z76.0 Encounter for issue of repeat prescription (principal); I10 Essential (primary) hypertension; Z79.899 Other long term (current) drug therapy; F17.200 Nicotine dependence, unspecified, uncomplicated
CPT/HCPCS: 99281

== ENCOUNTER 2017-07-11 07:35 | Emergency (ER) | payer OTHER, BC ==
[2017-07-11] MEDS ORDERED: ONDANSETRON HCL INJ/PF 4 MG/2 ML SDV IV ONE (08:13)
[2017-07-11] MEDS ORDERED: NORMAL SALINE 1000 ML 1,000 ML IV ONE (08:13)
--- NOTE | 2017-07-11 08:15 | ER Document Report ---
ED General - General Chief Complaint: Arm Pain Stated Complaint: LEFT WRIST PAIN/RIGHT ELBOW PAIN Time Seen by Provider: 07/11/17 08:11 Mode of Arrival: Ambulatory Information source: Patient TRAVEL OUTSIDE OF THE [place] IN LAST 30 DAYS: No - HPI Notes: 47-year-old female presents today with complaints of left elbow pain 2 weeks and right wrist pain 1 week. 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 Reports pain is throbbing and aching, worse with movement, better at rest. Has not tried any elevation, heat, Tylenol or ibuprofen. Denies any numbness or tingling bilateral upper extremities equally. Denies any weakness in bilateral upper extremities equally. Denies any open wounds. Denies any ecchymosis or contusions. Pain is 6 out of 10. Denies fevers, chills, chest pain,palpitations, shortness of breath, dyspnea, nausea, vomiting, diarrhea, abdominal pain, hematuria,blurred vision, double vision, loss of vision, speech changes, LH, dizziness, syncope, headaches, wheezing, ST, URI, neck pain, weakness, bowel or bladder dysfunction , saddle anesthesia, numbness or tingling in bilateral upper or lower extremities equally, muscle paralysis, weakness in bilateral upper or lower extremities equally or rash. - Related Data Allergies/Adverse Reactions: divalproex sodium [From Depakote] Allergy (Verified 07/11/17 07:37) hydromorphone HCl [From Dilaudid] Allergy (Verified 07/11/17 07:37) morphine [Morphine] Allergy (Verified 07/11/17 07:37) nalbuphine HCl [From Nubain] Allergy (Verified 07/11/17 07:37) niacin [Niacin] Allergy (Verified 07/11/17 07:37) oxycodone HCl [From Percocet] Allergy (Verified 07/11/17 07:37) Past Medical History - General Information source: Patient - Social History Smoking Status: Unknown if Ever Smoked Family History: Reviewed & Not Pertinent, Arthritis, CAD - Father with heart attack at 55., CVA, DM, Hyperlipidemia, Hypertension, Thyroid Disfunction - Past Medical History Cardiac Medical History: Reports: Hx Hypercholesterolemia, Hx Hypertension Pulmonary Medical History: Reports: Hx Asthma Neurological Medical History: Reports: Hx Migraine Endocrine Medical History: Reports: Hx Diabetes Mellitus Type 2 Renal/ Medical History: Reports: Hx Ovarian Cysts. Denies: Hx Peritoneal Dialysis GI Medical History: Reports: Hx Gastroesophageal Reflux Disease, Hx Ulcer Musculoskeltal Medical History: Reports Hx Arthritis Psychiatric Medical History: Reports: Hx Attention Deficit Hyperactivity Disorder Past Surgical History: Reports: Hx Adenoidectomy, Hx Section, Hx Cholecystectomy, Hx Gynecologic Surgery - Ovarian cyst resection, Hx Oral Surgery - [place] teeth, Hx Tonsillectomy, Hx Tubal Ligation - Immunizations Hx Diphtheria, Pertussis, Tetanus Vaccination: Yes Hx Pneumococcal Vaccination: 01/07/13 Review of Systems - Review of Systems Notes: REVIEW OF SYSTEMS: CONSTITUTIONAL : Denies fever, chills, or sweats. Denies recent illness. EENT: Denies eye, ear, throat, or mouth pain or symptoms. Denies nasal or sinus congestion or discharge. Denies throat, tongue, or mouth swelling or difficulty swallowing. CARDIOVASCULAR: Denies chest pain. Denies palpitations or racing or irregular heart beat. Denies ankle edema. RESPIRATORY: Denies cough, cold, or chest congestion. Denies shortness of breath, difficulty breathing, or wheezing. GASTROINTESTINAL: Denies abdominal pain or distention. Denies nausea, vomiting , or diarrhea. Denies blood in vomitus, stools, or per rectum. Denies black, tarry stools. Denies constipation. GENITOURINARY: Denies difficulty urinating, painful urination, burning, frequency, blood in urine, or discharge. FEMALE GENITOURINARY: Denies vaginal bleeding, heavy or abnormal periods, irregular periods. Denies vaginal discharge or odor. MUSCULOSKELETAL: right wrist pain, left elbow pain Denies back or neck pain or stiffness. Denies joint pain or swelling. SKIN: Denies rash, lesions or sores. HEMATOLOGIC : Denies easy bruising or bleeding. LYMPHATIC: Denies swollen, enlarged glands. NEUROLOGICAL: Denies confusion or altered mental status. Denies passing out or loss of consciousness. Denies dizziness or lightheadedness. Denies headache. Denies weakness or paralysis or loss of use of either side. Denies problems with gait or speech. Denies sensory loss, numbness, or tingling. Denies seizures. PSYCHIATRIC: Denies anxiety or stress. Denies depression, suicidal ideation, or homicidal ideation. ALL OTHER SYSTEMS REVIEWED AND NEGATIVE. PHYSICAL EXAMINATION: GENERAL: Well-appearing, well-nourished and in no acute distress. HEAD: Atraumatic, normocephalic. EYES: Pupils equal round and reactive to light, extraocular movements intact, conjunctiva are normal. ENT: Nares patent, oropharynx clear without exudates. Moist mucous membranes. NECK: Normal range of motion, supple without lymphadenopathy LUNGS: Breath sounds clear to auscultation bilaterally and equal. No wheezes rales or rhonchi. HEART: Regular rate and rhythm without murmurs ABDOMEN: Soft, nontender, nondistended abdomen. No guarding, no rebound. No masses appreciated. Female : deferred Musculoskeletal:left elbow pain with abduction and flexion. no pain with supination, pronation, extension. No obvious deformity.APROM in shoulder. DTR + 2 in BUE equally. no noted crepitus with APROM in elbow. Full motor and sensory function in LIDA. No vascular compromise. No noted swelling, abrasions, ecchymosis, lacerations, scars of recent trauma. No erythema or induration noted to area. Intact median, ulnar and radial nerves bilaterally and equally. Normal ulnar/radial deviation. noted right wrist pain with flexion, extension, inversion, eversion of wrist. digits in right and left with full aprom.. Compliance Program Manager + 2 BUE equally. Snuffbox tenderness negative on right. radial pulses + 2 BUE equally. Negative kanavels sign. No open wounds or drainage from wrist. No vascular compromise.No body crepitus or focal area of TTP. Limited ROM with flexion, extension, ulnar/radial deviation . Motor and sensory function of ulnar , radial, medial nerves intact bilaterally and equally. Normal range of motion , no pitting or edema. No cyanosis. NEUROLOGICAL: Cranial nerves grossly intact. Normal speech, normal gait. Normal sensory, motor exams PSYCH: Normal mood, normal affect. SKIN: Warm, Dry, normal turgor, no rashes or lesions noted. Dictation was performed using GLO recognition software Physical Exam - Vital signs Vitals: Temp Pulse Resp BP Pulse Ox 97.6 F 85 18 138/83 H 99 07/11/17 07:42 07/11/17 07:42 07/11/17 07:42 07/11/17 07:42 07/11/17 07:42 Course - Re-evaluation Re-evalutation: Discussed the results of the radiology as well as the diagnosis at great length. Patient advised that she has a sprain of both her left elbow and right wrist. Give her a wrist splint as well as a left arm sling. Advised to follow [facility] therapy. Take [id number] ibuprofen and Tylenol as needed. Advised if symptoms become worse return to the emergency room, date given orthopedic referral for patient to follow-up in 1 week if is not getting better. Pa discussed the need to return to the ER for any new or worsening sx. patient verbalized understanding of these instructions and agreed with plan of care. All questions answered. Patient comfortable with the decision to go home. - Vital Signs Vital signs: Temp Pulse Resp BP Pulse Ox 98.0 F 69 18 129/80 H 98 07/11/17 09:44 07/11/17 09:44 07/11/17 07:42 07/11/17 09:44 07/11/17 09:44 Discharge - Discharge Clinical Impression: Right wrist sprain Qualifiers: Encounter type: initial encounter Qualified Code(s): S63.501A - Unspecified sprain of right wrist, initial encounter Sprain of left elbow Qualifiers: Encounter type: initial encounter Qualified Code(s): S53.402A - Unspecified sprain of left elbow, initial encounter Condition: Good Disposition: HOME, SELF-CARE Instructions: Wrist Sprain ([facility]), Temporary Sling ([facility]), Tennis Elbow (Lateral Epicondylitis) ([facility]) Additional Instructions: Sprain Your injury is a sprain. A sprain results from stretching or tearing of the ligaments, usually from a twisting injury. The ligaments will require time and protection in order to heal properly. Many sprains are quite disabling and should be taken seriously. The usual initial treatment of sprains is cold packs, elevation, and rest of the injured area. Your physician has assessed the seriousness of your ligament injury, and has outlined a treatment plan. Understand that this treatment may change, depending on how you progress. If a re-examination was recommended, it is important that you follow up as instructed. Call the doctor any time if there is severe pain, numbness, or loss of function in the injured area. Ice & Elevation Apply ice packs frequently against the painful area. Many different schedules are recommended, such as "20 minutes on, 20 minutes off" or "one hour ice, two hours rest." If you need to work, you may need to go longer between ice treatments. You should plan to have the area ice packed AT LEAST one- fourth of the time. The ice should be applied over the wrap, tape, or splint, or over a layer of cloth -- not directly against the skin. Some ice bags have a built-in cloth and can be put directly on the skin. Your injured part should be elevated as much as possible over the next 48 hours. Try to keep the injury above the level of the heart. Avoid use of the injured area. Elevation and rest will decrease the swelling. Please follow up with the [facility] [address] [place] [phone] Return to the emergency room if symptoms become worse. Wear your right wrist cock up and your left sling as instructed, make sure to take arm out of sling twice a day to move around to prevent contractures. Follow-up with framing specialist and primary critical care unit nurse within 1 week. Take [id number] ibuprofen and Tylenol as needed for pain. Return to the emergency room if symptoms become worse. Return immediately for any new or worsening symptoms. Follow up with primary care provider, call tomorrow to make followup appointment. Forms: Return to Work Referrals: TORO MELENDREZ MD [ACTIVE STAFF] - Follow up in 1 week RICARDO MCKEON DO [NO LOCAL MD] - Follow up in 1 week
[2017-07-11] MEDS ORDERED: KETOROLAC TROMETHAMINE 60 MG/2 ML SDV IM ONE (08:37)
--- NOTE | 2017-07-11 09:18 | RADIOLOGY REPORT (SQ) ---
EXAM DESCRIPTION: ELBOW RIGHT OVER 2 VIEWS COMPLETED DATE/TIME: 07/11/2017 9:07 am REASON FOR STUDY: left elbow pain x 2 weeks, unsure of injury COMPARISON: None. NUMBER OF VIEWS: Four views. TECHNIQUE: AP, lateral, and both oblique radiographic images acquired of the right elbow. LIMITATIONS: None. FINDINGS: MINERALIZATION: Normal. BONES: No acute fracture or dislocation. No worrisome bone lesions. JOINT: No effusion. SOFT TISSUES: No soft tissue swelling. No foreign body. OTHER: No other significant finding. IMPRESSION: NEGATIVE STUDY OF THE RIGHT ELBOW. NO RADIOGRAPHIC EVIDENCE OF ACUTE INJURY. TECHNICAL DOCUMENTATION: JOB ID: [id number] [employer]- All Rights Reserved Reading location - IP/workstation name: [email or web address]
--- NOTE | 2017-07-11 09:19 | RADIOLOGY REPORT (SQ) ---
EXAM DESCRIPTION: WRIST LEFT 3 VIEWS COMPLETED DATE/TIME: 07/11/2017 9:07 am REASON FOR STUDY: left elbow pain x 2 weeks, unsure of injury COMPARISON: None. NUMBER OF VIEWS: Three views. TECHNIQUE: AP, lateral, and oblique radiographic images acquired of the left wrist. LIMITATIONS: None. FINDINGS: MINERALIZATION: Normal. BONES: No acute fracture or dislocation. No worrisome bone lesions. Normal alignment. SOFT TISSUES: No soft tissue swelling. No foreign body. OTHER: No other significant finding. IMPRESSION: NEGATIVE STUDY OF THE LEFT WRIST. NO RADIOGRAPHIC EVIDENCE OF ACUTE INJURY. TECHNICAL DOCUMENTATION: JOB ID: [id number] [employer]- All Rights Reserved Reading location - IP/workstation name: [email or web address]
[2017-07-11 09:45] VITALS: BP 129/80
== END 2017-07-11 09:48 | disposition home or self-care (01) ==
LOC: ER 07:35
DX: S53.402A Unspecified sprain of left elbow, initial encounter (principal); S63.501A Unspecified sprain of right wrist, initial encounter; W50.0XXA Accidental hit or strike by another person, initial encounter; Y99.0 Civilian activity done for income or pay; I10 Essential (primary) hypertension; J45.909 Unspecified asthma, uncomplicated; E11.9 Type 2 diabetes mellitus without complications; Z88.8 Allergy status to other drugs, medicaments and biological substances; Z88.5 Allergy status to narcotic agent
CPT/HCPCS: 99283; 96372; 73080; 73110; L3908 ×2; J1885

== ENCOUNTER → 2017-11-14 | Outpatient (CLI) | payer OTHER ==
[2017-11-14 09:27] LABS: ABSOLUTE EOSINOPHILS # (AUTO) 0.3 10^3/uL (0.0-0.6); ABSOLUTE LYMPHOCYTES (AUTO) 3.7 10^3/uL (0.5-4.7); ABSOLUTE MONOCYTES (AUTO) 0.7 10^3/uL (0.1-1.4); ABSOLUTE NEUT (AUTO) 6.8 10^3/uL (1.7-8.2); BASOPHILS % (AUTO) 0.3 % (0-2); EOSINOPHILS % (AUTO) 2.5 % (0-6); HEMATOCRIT 39.4 % (36.0-47.0); HEMOGLOBIN 13.7 g/dL (12.0-15.5); LYMPHOCYTES % (AUTO) 31.8 % (13-45); MEAN CORPUSCULAR HEMOGLOBIN 28.6 pg (27.0-33.4); MEAN CORPUSCULAR HGB CONC 34.8 g/dL (32.0-36.0); MEAN CORPUSCULAR VOLUME 82 fl (80-97); MONOCYTES % (AUTO) 6.4 % (3-13); PLATELET COUNT 258 10^3/uL (150-450); RED BLOOD COUNT 4.79 10^6/uL (3.72-5.28); RED CELL DISTRIBUTION WIDTH 13.6 % (11.5-14.0); TOTAL CELLS COUNTED % (AUTO) 100 %; WHITE BLOOD COUNT 11.5 10^3/uL (4.0-10.5)
[2017-11-14 09:56] LABS: ALANINE AMINOTRANSFERASE 28 U/L (9-52); ALBUMIN 4.4 g/dL (3.5-5.0); ALKALINE PHOSPHATASE 78 U/L (38-126); ANION GAP 13 (5-19); ASPARTATE AMINO TRANSFERASE 16 U/L (14-36); BILIRUBIN,DIRECT 0.4 mg/dL (0.0-0.4); BILIRUBIN,TOTAL 0.4 mg/dL (0.2-1.3); BLOOD UREA NITROGEN 16 mg/dL (7-20); CALCIUM 10.2 mg/dL (8.4-10.2); CARBON DIOXIDE 27 mmol/L (22-30); CHLORIDE 102 mmol/L (98-107); CHOLESTEROL 260.35 mg/dL (0-200); GLUCOSE 167 mg/dL (75-110); POTASSIUM 4.4 mmol/L (3.6-5.0); SODIUM 141.9 mmol/L (137-145); TOTAL PROTEIN 7.3 g/dL (6.3-8.2); TRIGLYCERIDES 454 mg/dL (<150)
[2017-11-14 10:07] LABS: DIRECT LDL 150 mg/dL (<100)
== END ==
LOC: CCC 08:46
DX: E11.8 Type 2 diabetes mellitus with unspecified complications (principal); I10 Essential (primary) hypertension; E55.9 Vitamin D deficiency, unspecified
CPT/HCPCS: 36415; 80053; 80061; 82306; 83036; 84443; 85025

== ENCOUNTER 2018-03-29 12:19 | Emergency (ER) | payer SELFPAY ==
[2018-03-29 12:38] VITALS: BP 147/76
--- NOTE | 2018-03-29 13:13 | ER Document Report ---
ED General - General Chief Complaint: Palpitations Stated Complaint: HEARTBEAT ISSUE, HEADACHE Time Seen by Provider: 03/29/18 12:55 TRAVEL OUTSIDE OF THE [place] IN LAST 30 DAYS: No - HPI Notes: Patient is a 47-year-old female that presents to the emergency department for chief complaint of palpitations and headache. Patient reports episodes of palpitations that last 30 minutes at a time and then completely resolved. These episodes occur about once a week and have been ongoing for the last 3-4 months. She states she has previously been told she is having anxiety and panic attacks. She states that during these episodes she feels very jittery and anxious. She reports a mild dull achy headache for the last few days as well. She denies any fever, vision changes, numbness, weakness , shortness of breath and chest pain. She has not taken any home medications for her symptoms. She states these episodes occur while having arguments with family members. She states her daughter is depressed and has been starting confrontations with everyone in the family. Today she states that the episode occurred after a phone call with her daughter. Currently she denies having any palpitations and only has a mild dull headache. Past Medical History: Anxiety, history of tachycardia Past Surgical History: Negative Social History: Denies drugs alcohol and tobacco Family History: Reviewed and noncontributory for presenting illness Allergies: Reviewed, see documented allergy list. REVIEW OF SYSTEMS: CONSTITUTIONAL : No fever No chills No diaphoresis No recent illness EENT: No vision changes No congestion No sore throat CARDIOVASCULAR: No chest pain palpitations RESPIRATORY: No shortness of breath No cough No difficulty breathing GASTROINTESTINAL: No abdominal pain No nausea No vomiting No diarrhea GENITOURINARY: No dysuria No hematuria No difficulty urinating MUSCULOSKELETAL: No back pain No leg pain No arm pain SKIN: No rashes No lesions LYMPHATIC: No swollen, enlarged glands. NEUROLOGICAL: No lightheadedness No headache No weakness No paresthesias PSYCHIATRIC: anxiety No depression PHYSICAL EXAMINATION: Vital signs reviewed, nursing noted reviewed. GENERAL: Well-appearing, well-nourished and in no acute distress. HEAD: Atraumatic, normocephalic. EYES: Eyes appear normal, extraocular movements intact, sclera anicteric, conjunctiva are normal. ENT: nares patent, oropharynx clear without exudates. Moist mucous membranes. NECK: Normal range of motion, supple without lymphadenopathy LUNGS: Breath sounds clear to auscultation bilaterally and equal. No wheezes rales or rhonchi. HEART: Regular rate and rhythm without murmurs ABDOMEN: Soft, nontender, normoactive bowel sounds. No rebound, guarding, or rigidity. No masses appreciated. EXTREMITIES: Nontender, good range of motion, no pitting or edema. NEUROLOGICAL: No focal neurological deficits. Moves all extremities spontaneously Motor and sensory grossly intact on exam. PSYCH: Normal mood, normal affect. SKIN: Warm, Dry, normal turgor, no rashes or lesions noted on exposed skin - Related Data Allergies/Adverse Reactions: divalproex sodium [From Depakote] Allergy (Verified 03/29/18 12:33) hydromorphone HCl [From Dilaudid] Allergy (Verified 03/29/18 12:33) morphine [Morphine] Allergy (Verified 03/29/18 12:33) nalbuphine HCl [From Nubain] Allergy (Verified 03/29/18 12:33) niacin [Niacin] Allergy (Verified 03/29/18 12:33) oxycodone HCl [From Percocet] Allergy (Verified 03/29/18 12:33) Past Medical History - Social History Smoking Status: Current Every Day Smoker Frequency of alcohol use: None Drug Abuse: None Family History: Reviewed & Not Pertinent, Arthritis, CAD - Father with heart attack at 55., CVA, DM, Hyperlipidemia, Hypertension, Thyroid Disfunction Patient has suicidal ideation: No Patient has homicidal ideation: No - Past Medical History Cardiac Medical History: Reports: Hx Hypercholesterolemia, Hx Hypertension Pulmonary Medical History: Reports: Hx Asthma Neurological Medical History: Reports: Hx Migraine Endocrine Medical History: Reports: Hx Diabetes Mellitus Type 2 Renal/ Medical History: Reports: Hx Ovarian Cysts. Denies: Hx Peritoneal Dialysis GI Medical History: Reports: Hx Gastroesophageal Reflux Disease, Hx Ulcer Musculoskeletal Medical History: Reports Hx Arthritis Psychiatric Medical History: Reports: Hx Attention Deficit Hyperactivity Disorder Past Surgical History: Reports: Hx Adenoidectomy, Hx Section, Hx Cholecystectomy, Hx Gynecologic Surgery - Ovarian cyst resection, Hx Oral Surgery - [place] teeth, Hx Tonsillectomy, Hx Tubal Ligation - Immunizations Hx Diphtheria, Pertussis, Tetanus Vaccination: Yes Hx Pneumococcal Vaccination: 01/07/13 Review of Systems - Review of Systems Notes: Dictated Physical Exam - Vital signs Vitals: Temp Pulse Resp BP Pulse Ox 97.9 F 86 18 147/76 H 98 03/29/18 12:31 03/29/18 12:31 03/29/18 12:31 03/29/18 12:31 03/29/18 12:31 - Notes Notes: Dictated Course - Re-evaluation Re-evalutation: 03/29/18 13:11 Vitals reviewed. Nursing notes reviewed. Patient's EKG shows normal sinus rhythm with no ectopy or dysrhythmia. There is no significant change from previous. She is currently not having any palpitations. She denied having any associated chest pains. I do not clinically suspect pulmonary embolism. Her palpitations are self-limited and occur only after confrontations with family. They are likely related to anxiety. Patient was offered Tylenol or ibuprofen for her headache but declined stating it is not that bad. She was advised to follow with her primary care doctor to discuss possibly starting an SSRI since her episodes are becoming more frequent. I also advised that she discuss possibly getting a Holter monitor if her symptoms are prolonged or changing. She is currently stable and further workup in the emergency room not currently indicated given she is not having any symptoms. She will follow closely with primary care. She will be given Vistaril for symptomatic management at home. Discharged in stable condition. - Vital Signs Vital signs: Temp Pulse Resp BP Pulse Ox 97.9 F 86 18 147/76 H 98 03/29/18 12:31 03/29/18 12:31 03/29/18 12:31 03/29/18 12:31 03/29/18 12:31 - EKG Interpretation by Me Additional EKG results interpreted by me: 03/29/18 13:13 Interpreted by myself 1238: Normal sinus rhythm, rate 83, normal axis, no ectopy, no WPW Discharge - Discharge Clinical Impression: Palpitations Headache Qualifiers: Headache type: unspecified Headache chronicity pattern: acute headache Intractability: not intractable Qualified Code(s): R51 - Headache Condition: Stable Disposition: HOME, SELF-CARE Instructions: Palpitations (Irregular or Rapid Heartrate) ([facility]), Panic Attack ( [facility]) Additional Instructions: Please return to the emergency department if you have any worsening, or concern of your symptoms. Please return to the emergency department if you develop chest pain, difficulty breathing, severe abdominal pain, or ongoing vomiting. Please follow-up with your primary care physician in 2-3 days and any other recommended physicians. If prescribed, take all medications as directed. If you have any questions or concerns do not hesitate to return the emergency department for evaluation. Talk to your primary care provider about getting a Holter monitor placed if your palpitations increase in frequency talk to your primary care provider about getting started on an SSRI for your anxiety and panic attacks Prescriptions: Hydroxyzine Pamoate [Vistaril 50 mg Capsule] 50 mg PO Q6 PRN #20 capsule PRN Reason: Anxiety Referrals: [facility] [Primary Care Provider] - Follow up in 3-5 days
--- NOTE | 2018-03-29 15:48 | EKG REPORT ---
SEVERITY:- NORMAL ECG - SINUS RHYTHM : Confirmed by: Lea Hickman MD 29-Mar-2018 15:47:02
== END 2018-03-29 13:17 | disposition home or self-care (01) ==
LOC: ER 12:19
DX: R00.2 Palpitations (principal); F41.9 Anxiety disorder, unspecified; R51 Headache; I10 Essential (primary) hypertension; J45.909 Unspecified asthma, uncomplicated; E11.9 Type 2 diabetes mellitus without complications; F17.200 Nicotine dependence, unspecified, uncomplicated; Z88.8 Allergy status to other drugs, medicaments and biological substances; Z88.5 Allergy status to narcotic agent; Z82.49 Family history of ischemic heart disease and other diseases of the circulatory system
CPT/HCPCS: 93005; 93010; 99285

== ENCOUNTER 2018-05-23 11:34 | Emergency (ER) | payer SELFPAY ==
[2018-05-23 11:41] VITALS: BP 138/79
[2018-05-23] MEDS ORDERED: TRAMADOL HCL 50 MG TABLET PO ONE (12:03)
--- NOTE | 2018-05-23 12:05 | ER Document Report ---
HPI - HPI Patient complains to provider of: Wrist pain Time Seen by Provider: 05/23/18 11:47 Onset: This morning Onset/Duration: Sudden Quality of pain: Achy Pain Level: 3 Context: Patient states she was pushing up to get off of the bed and felt a sudden pop to the left wrist. Patient complains of continued pain to the wrist area. Patient is right-hand dominant. Associated Symptoms: denies: Fever Exacerbated by: Movement Relieved by: Denies Similar symptoms previously: No Recently seen / treated by doctor: No - ROS ROS below otherwise negative: Yes Systems Reviewed and Negative: Yes All other systems reviewed and negative - CONSTITUTIONAL Constitutional: DENIES: Fever - NEURO Neurology: DENIES: Weakness - REPRODUCTIVE Reproductive: DENIES: : - MUSCULOSKELETAL Musculoskeletal: REPORTS: Extremity pain - L wrist. DENIES: Swelling - DERM Skin Color: Normal Skin Problems: None Past Medical History - General Information source: Patient - Social History Smoking Status: Current Every Day Smoker Chew tobacco use (# tins/day): No Smoking Education Provided: Yes Frequency of alcohol use: None Drug Abuse: None Occupation: [employer] Lives with: Family Family History: Reviewed & Not Pertinent, Arthritis, CAD - Father with heart attack at 55., CVA, DM, Hyperlipidemia, Hypertension, Thyroid Disfunction Patient has suicidal ideation: No Patient has homicidal ideation: No - Past Medical History Cardiac Medical History: Reports: Hx Hypercholesterolemia, Hx Hypertension Pulmonary Medical History: Reports: Hx Asthma Neurological Medical History: Reports: Hx Migraine Endocrine Medical History: Reports: Hx Diabetes Mellitus Type 2 Renal/ Medical History: Reports: Hx Ovarian Cysts. Denies: Hx Peritoneal Dialysis GI Medical History: Reports: Hx Gastroesophageal Reflux Disease, Hx Ulcer Musculoskeletal Medical History: Reports Hx Arthritis Psychiatric Medical History: Reports: Hx Attention Deficit Hyperactivity Disorder Past Surgical History: Reports: Hx Adenoidectomy, Hx Section, Hx Cholecystectomy, Hx Gynecologic Surgery - Ovarian cyst resection, Hx Oral Surgery - [place] teeth, Hx Tonsillectomy, Hx Tubal Ligation - Immunizations Hx Diphtheria, Pertussis, Tetanus Vaccination: Yes Hx Pneumococcal Vaccination: 01/07/13 Vertical Provider Document - CONSTITUTIONAL Agree With Documented VS: Yes Exam Limitations: No Limitations General Appearance: WD/WN, No Apparent Distress - INFECTION CONTROL TRAVEL OUTSIDE OF THE [place] IN LAST 30 DAYS: No - HEENT HEENT: Atraumatic, Normocephalic - NECK Neck: Normal Inspection - RESPIRATORY Respiratory: Breath Sounds Normal, No Respiratory Distress - CARDIOVASCULAR Cardiovascular: Regular Rate, Regular Rhythm Pulses: Normal: Radial - MUSCULOSKELETAL/EXTREMETIES Musculoskeletal/Extremeties: FROM, Tender - medial wrist tenderness, no deformity or edema, No Edema. negative: Eccymosis - NEURO Level of Consciousness: Awake, Alert, Appropriate Motor/Sensory: No Motor Deficit - DERM Integumentary: Warm, Dry, No Rash Course - Vital Signs Vital signs: Temp Pulse Resp BP Pulse Ox 97.6 F 78 16 138/79 H 95 05/23/18 11:40 05/23/18 11:40 05/23/18 11:40 05/23/18 11:40 05/23/18 11:40 - Diagnostic Test Radiology reviewed: Reports reviewed Procedures - Immobilization Left Wrist Pre-Proc Neuro Vasc Exam: Normal Immobilizer type: Cock-up Performed by: PCT Post-Proc Neuro Vasc Exam: Normal Alignment checked and good: Yes Discharge - Discharge Clinical Impression: Left wrist sprain Qualifiers: Encounter type: initial encounter Qualified Code(s): S63.502A - Unspecified sprain of left wrist, initial encounter Condition: Stable Disposition: HOME, SELF-CARE Instructions: Ice & Elevation ([facility]), Wrist Sprain ([facility]), Temporary Splint ([facility]) Additional Instructions: Return immediately for any new or worsening symptoms Followup with your primary care provider, call tomorrow to make a followup appointment Follow-up with orthopedics for any persistent pain or problems Wear splint for the next 4-5 days and then remove. If still having pain follow- up with Ortho. Prescriptions: Naproxen [Naprosyn 250 Nmg Tablet] 1 tab PO BID PRN #10 tablet PRN Reason: Forms: Smoking Cessation Education, Return to Work Referrals: [facility] ([facility]) [Provider Group] - Follow up as needed
--- NOTE | 2018-05-23 12:31 | RADIOLOGY REPORT (SQ) ---
EXAM DESCRIPTION: WRIST LEFT 3 VIEWS COMPLETED DATE/TIME: 05/23/2018 12:18 pm REASON FOR STUDY: radial wrist pain, felt pop COMPARISON: None. NUMBER OF VIEWS: Three views. TECHNIQUE: AP, lateral, and oblique radiographic images acquired of the left wrist. LIMITATIONS: None. FINDINGS: MINERALIZATION: Normal. BONES: No acute fracture or dislocation. No worrisome bone lesions. Normal alignment. SOFT TISSUES: No soft tissue swelling. No foreign body. OTHER: No other significant finding. IMPRESSION: NEGATIVE STUDY OF THE LEFT WRIST. NO RADIOGRAPHIC EVIDENCE OF ACUTE INJURY. TECHNICAL DOCUMENTATION: JOB ID: [id number] [employer]- All Rights Reserved Reading location - IP/workstation name: [email or web address]
== END 2018-05-23 12:48 | disposition home or self-care (01) ==
LOC: ER 11:34
DX: S63.502A Unspecified sprain of left wrist, initial encounter (principal); M25.532 Pain in left wrist; X58.XXXA Exposure to other specified factors, initial encounter; F17.200 Nicotine dependence, unspecified, uncomplicated; I10 Essential (primary) hypertension; J45.909 Unspecified asthma, uncomplicated; E11.9 Type 2 diabetes mellitus without complications
CPT/HCPCS: 99283; 73110; L3908

== ENCOUNTER 2018-07-10 08:21 | Emergency (ER) | payer OTHER ==
[2018-07-10 08:29] VITALS: BP 141/66
[2018-07-10] MEDS ORDERED: KETOROLAC TROMETHAMINE 60 MG/2 ML SDV IM ONE (09:16)
--- NOTE | 2018-07-10 09:18 | ER Document Report ---
HPI - HPI Time Seen by Provider: 07/10/18 08:47 Pain Level: 4 Notes: Patient is a 48-year-old female with a history of hypertension, diabetes, arthritis who presents the emergency department complaining of acute on chronic left buttock pain that began a few days ago without precipitating event. Patient states that movement and sitting on her but makes her pain worse. Pain does not radiate otherwise. No history of spinal abscess or IV drug abuse. She has been eating and drinking without difficulty. She is urinating normally and having normal bowel movements. No other vaginal discharge, odor, or bleeding. She has no other concerns or complaints at this time. Denies any headache, fever, neck pain, URI, sore throat, chest pain, palpitations, syncope, cough, shortness of breath, wheeze, dyspnea, abdominal pain, nausea/vomiting/diarrhea, urinary retention, dysuria, hematuria, loss of control of bowel or bladder, numbness/tingling, saddle anesthesia, muscle paralysis/weakness, or rash. - ROS Systems Reviewed and Negative: Yes All other systems reviewed and negative - EENT EENT: DENIES: Sore Throat - CARDIOVASCULAR Cardiovascular: DENIES: Chest pain - GASTROINTESTINAL Gastrointestinal: DENIES: Abdominal Pain - REPRODUCTIVE Reproductive: DENIES: : - MUSCULOSKELETAL Musculoskeletal: REPORTS: Extremity pain - left hip Past Medical History - Social History Smoking Status: Never Smoker Chew tobacco use (# tins/day): No Frequency of alcohol use: None Drug Abuse: None Family History: Reviewed & Not Pertinent, Arthritis, CAD - Father with heart attack at 55., CVA, DM, Hyperlipidemia, Hypertension, Thyroid Disfunction Patient has suicidal ideation: No Patient has homicidal ideation: No - Past Medical History Cardiac Medical History: Reports: Hx Hypercholesterolemia, Hx Hypertension Pulmonary Medical History: Reports: Hx Asthma Neurological Medical History: Reports: Hx Migraine Endocrine Medical History: Reports: Hx Diabetes Mellitus Type 2 Renal/ Medical History: Reports: Hx Ovarian Cysts. Denies: Hx Peritoneal Dialysis GI Medical History: Reports: Hx Gastroesophageal Reflux Disease, Hx Ulcer Musculoskeletal Medical History: Reports Hx Arthritis Psychiatric Medical History: Reports: Hx Attention Deficit Hyperactivity Disorder Past Surgical History: Reports: Hx Adenoidectomy, Hx Section, Hx Cholecystectomy, Hx Gynecologic Surgery - Ovarian cyst resection, Hx Oral Surgery - [employer] teeth, Hx Tonsillectomy, Hx Tubal Ligation - Immunizations Hx Diphtheria, Pertussis, Tetanus Vaccination: Yes Hx Pneumococcal Vaccination: 01/07/13 Vertical Provider Document - CONSTITUTIONAL Agree With Documented VS: Yes Notes: PHYSICAL EXAMINATION: GENERAL: Well-appearing, well-nourished and in no acute distress. LUNGS: Breath sounds clear to auscultation bilaterally and equal. No wheezes rales or rhonchi. HEART: Regular rate and rhythm without murmurs, rubs, gallops. ABDOMEN: Soft, nontender, nondistended abdomen. No guarding, no rebound. No masses appreciated. Normal bowel sounds present. No CVA tenderness bilaterally. No pulsatile mass Musculoskeletal: LE's b/l: FROM to passive/active. Strength 5+/5. No deficits noted. No bony tenderness of extremities. Back: FROM to passive/active. Strength 5+/5. No vertebral point tenderness, stepoffs, or deformities. No other bony tenderness, erythema, swelling, or ecchymosis. SLR negative b/l. + left SI jt tenderness, correlates with pain described. No foot drop Extremities: No cyanosis, clubbing, or edema b/l. Peripheral pulses 2+. Capillary refill less than 2 seconds. NEUROLOGICAL: Normal speech, normal gait. Normal sensory, motor exams. Reflexes 2+ b/l. PSYCH: Normal mood, normal affect. SKIN: Warm, Dry, normal turgor, no rashes or lesions noted. - INFECTION CONTROL TRAVEL OUTSIDE OF THE [place] IN LAST 30 DAYS: No Course - Re-evaluation Re-evalutation: 07/10/18 09:16 Patient is an afebrile, well-hydrated, 48-year-old female who presents to the ED with acute on chronic left buttock pain, suspect Sacroiliitis. Vitals are acceptable. PE is otherwise unremarkable for any focal neurological deficits. Patient was given Toradol and already has a lidoderm patch on. She has no significant tachycardia, tachypnea, or hypoxia. She is nontoxic-appearing and is tolerating p.o. without difficulties. There are no signs of infection. No other red flag symptoms noted. No other labs or imaging warranted at this time based on H&P. Low suspicion for any meningitis, fracture, expanding/ruptured AAA, cauda equina syndrome, epidural mass lesion/abscess, herniated disc causing severe spinal stenosis, or other systemic infection at this time. Patient is aware that this condition can change from initial presentation and that she needs monitor symptoms closely for any acute changes. I will send her home with a prescription for naproxen. Conservative measures otherwise for symptoms. Recheck with your PCM in 3-5 days. Consider consult with orthopedic/physical therapy. Return to the ED with any worsening/concerning symptoms otherwise as reviewed discharge. Patient is in agreement. - Vital Signs Vital signs: Temp Pulse Resp BP Pulse Ox 97.6 F 77 16 141/66 H 97 07/10/18 08:27 07/10/18 08:27 07/10/18 08:27 07/10/18 08:27 07/10/18 08:27 Discharge - Discharge Clinical Impression: Left buttock pain Condition: Stable Disposition: HOME, SELF-CARE Additional Instructions: Rest, Ice Tylenol/ibuprofen as needed Light stretches daily Strength exercises as able Moist heat and massage may help F/u with your PCP in 3-5 days for a recheck Consider consult(s) with Orthopedics/physical therapy for ongoing/worsening symptoms Return to the ED with any worsening symptoms and/or development of fever, headache, chest pain, palpitations, syncope, shortness of breath, trouble breathing, abdominal pain, n/v/d, blood in stool/urine, loss of control of bowel/bladder, urinary retention, muscle weakness/paralysis, saddle anesthesia, numbness/tingling, or other worsening symptoms that are concerning to you. Prescriptions: Naproxen 500 mg PO BID #10 tablet Forms: Elevated Blood Pressure Referrals: [facility] ([facility]) [Provider Group] - Follow up as needed
== END 2018-07-10 09:32 | disposition home or self-care (01) ==
LOC: ER 08:21
DX: M79.10 Myalgia, unspecified site (principal); M25.552 Pain in left hip; I10 Essential (primary) hypertension; E11.9 Type 2 diabetes mellitus without complications; E78.00 Pure hypercholesterolemia, unspecified; Z98.51 Tubal ligation status
CPT/HCPCS: 99283; 96372; J1885

== ENCOUNTER 2018-08-12 08:17 | Emergency (ER) | payer OTHER ==
--- NOTE | 2018-08-12 08:26 | ER Document Report ---
ED General - General Chief Complaint: Cold Symptoms Stated Complaint: COUGH/HEADACHE/EAR HURTS Time Seen by Provider: 08/12/18 08:26 Primary Care Provider: JERRICA HENDERSON PA-C [PHYSICIAN WEFT STRAIGHTENER] - Follow up in 3-5 days Notes: Patient is a 48-year-old female that presents to the emergency department for chief complaint of cough, congestion and ear pressure. Patient states she is been having the symptoms for the past 3 days, she did note a fever at home yesterday, but she took ibuprofen that has since helped it. She is been having a dry cough, and as mentioned complaining of ear pressure, she rates her pain at this time is a 2 out of 10 describes as a dull ache in both her ears. She has tried some other dtbm-qwi-diszocr medications without much relief of her symptoms so she decided come to the emergency department. No sick contacts she is aware of. Past Medical History: Diabetes mellitus, hypertension Past Surgical History: , tubal ligation, tonsillectomy, cholecystectomy Social History: Admits to smoking cigarettes daily, denies alcohol or drug use. Family History: Reviewed and noncontributory for presenting illness Allergies: Reviewed, see documented allergy list. REVIEW OF SYSTEMS: Other than noted above, the 12 point review of systems was reviewed with the patient and were negative, all pertinent findings are included in the HPI. PHYSICAL EXAMINATION: Vital signs reviewed, nursing noted reviewed. GENERAL: Well-appearing, well-nourished and in no acute distress. HEAD: Atraumatic, normocephalic. EYES: Eyes appear normal, extraocular movements intact, sclera anicteric, conjunctiva are normal. ENT: nares patent, oropharynx clear without exudates. Moist mucous membranes. Sinuses are nontender, there is left TM erythema and bulging noted, normal on the right NECK: Normal range of motion, supple without lymphadenopathy LUNGS: Faint wheezing noted throughout all lung bailey, no respiratory distress HEART: Regular rate and rhythm without murmurs ABDOMEN: Soft, nontender, normoactive bowel sounds. No rebound, guarding, or rigidity. No masses appreciated. EXTREMITIES: Nontender, good range of motion, no pitting or edema. NEUROLOGICAL: No focal neurological deficits. Moves all extremities spontaneously Motor and sensory grossly intact on exam. PSYCH: Normal mood, normal affect. SKIN: Warm, Dry, normal turgor, no rashes or lesions noted on exposed skin TRAVEL OUTSIDE OF THE [place] IN LAST 30 DAYS: No - Related Data Allergies/Adverse Reactions: divalproex sodium [From Depakote] Allergy (Verified 08/12/18 08:18) hydromorphone HCl [From Dilaudid] Allergy (Verified 08/12/18 08:18) morphine [Morphine] Allergy (Verified 08/12/18 08:18) nalbuphine HCl [From Nubain] Allergy (Verified 08/12/18 08:18) niacin [Niacin] Allergy (Verified 08/12/18 08:18) oxycodone HCl [From Percocet] Allergy (Verified 08/12/18 08:18) Past Medical History - Social History Smoking Status: Current Every Day Smoker Family History: Reviewed & Not Pertinent, Arthritis, CAD - Father with heart attack at 55., CVA, DM, Hyperlipidemia, Hypertension, Thyroid Disfunction - Past Medical History Cardiac Medical History: Reports: Hx Hypercholesterolemia, Hx Hypertension Pulmonary Medical History: Reports: Hx Asthma Neurological Medical History: Reports: Hx Migraine Endocrine Medical History: Reports: Hx Diabetes Mellitus Type 2 Renal/ Medical History: Reports: Hx Ovarian Cysts. Denies: Hx Peritoneal Dialysis GI Medical History: Reports: Hx Gastroesophageal Reflux Disease, Hx Ulcer Musculoskeletal Medical History: Reports Hx Arthritis Psychiatric Medical History: Reports: Hx Attention Deficit Hyperactivity Disorder Past Surgical History: Reports: Hx Adenoidectomy, Hx Section, Hx Cholecystectomy, Hx Gynecologic Surgery - Ovarian cyst resection, Hx Oral Surgery - [place] teeth, Hx Tonsillectomy, Hx Tubal Ligation - Immunizations Hx Diphtheria, Pertussis, Tetanus Vaccination: Yes Hx Pneumococcal Vaccination: 01/07/13 Physical Exam - Vital signs Vitals: Temp Pulse Resp BP Pulse Ox 97.6 F 87 16 139/75 H 97 08/12/18 08:21 08/12/18 08:21 08/12/18 08:21 08/12/18 08:21 08/12/18 08:21 Course - Re-evaluation Re-evalutation: Patient seen and examined vital signs reviewed. Patient was evaluated and treated as appropriate for the patient's presenting symptoms and complaint, with consideration of any critical or life threatening conditions that may be associated with their obtained history and exam as noted above. Patient was treated with DuoNeb breathing treatment, lung sounds were improved after therapy, chest x-ray obtained and negative for signs of pneumonia, or other infiltrates, cardiac silhouette normal The patient was re-evaluated and was improved, was noted on exam to have an looked like acute otitis media of the left ear. Evaluation was most consistent with URI, bronchospasm, and left acute otitis media. Will discharge home with albuterol inhaler, and prescription for amoxicillin for 10 days. Plan of care was discussed with the patient at this point, after careful consideration I feel that that patient can be discharged from the emergency department, the patient was educated treatments and reasons to return to the emergency department based on their presumed diagnosis as noted above, they were advised to followup with a primary care physician in 2-3 days. Patient was agreeable to plan of care. *Note is created using voice recognition software and may contain spelling, syntax or grammatical errors. - Vital Signs Vital signs: Temp Pulse Resp BP Pulse Ox 97.7 F 88 18 136/71 H 100 08/12/18 09:39 08/12/18 09:39 08/12/18 09:39 08/12/18 09:39 08/12/18 09:39 Discharge - Discharge Clinical Impression: Acute otitis media, URI (upper respiratory infection), Bronchospasm Condition: Stable Disposition: HOME, SELF-CARE Instructions: Otitis Media ([facility]), Upper Respiratory Illness ([facility]) Additional Instructions: Please use the albuterol inhaler every 4 hours, 2 puffs, if needed for cough and wheezing. Prescriptions: RX: Amoxicillin Trihydrate [Amoxil 875 mg Tablet] 1 tab PO BID #20 tablet Referrals: JERRICA HENDERSON PA-C [PHYSICIAN WEFT STRAIGHTENER] - Follow up in 3-5 days
[2018-08-12] MEDS ORDERED: IPRATROPIUM/ALBUTEROL 0.5-2.5 MG/3 ML AMPUL NEB ONE (08:57)
[2018-08-12] MEDS ORDERED: ALBUTEROL SULFATE HFA (90 MCG/PUFF) 8 GM MDI (1 MDI/ER DISP) IH ONE (09:25)
--- NOTE | 2018-08-12 09:39 | RADIOLOGY REPORT (SQ) ---
EXAM DESCRIPTION: CHEST 2 VIEWS COMPLETED DATE/TIME: 08/12/2018 9:12 am REASON FOR STUDY: cough COMPARISON: None. TECHNIQUE: Frontal and lateral radiographic views of the chest acquired. NUMBER OF VIEWS: Two view. LIMITATIONS: None. FINDINGS: LUNGS AND PLEURA: No opacities, masses or pneumothorax. No pleural effusion. MEDIASTINUM AND HILAR STRUCTURES: No masses or contour abnormalities. HEART AND VASCULAR STRUCTURES: Heart normal size. No evidence for failure. BONES: No acute findings. HARDWARE: None in the chest. OTHER: No other significant finding. IMPRESSION: NO SIGNIFICANT RADIOGRAPHIC FINDING IN THE CHEST. TECHNICAL DOCUMENTATION: JOB ID: [id number] [employer]- All Rights Reserved Reading location - IP/workstation name: [email or web address]
[2018-08-12 09:41] VITALS: BP 136/71
== END 2018-08-12 09:41 | disposition home or self-care (01) ==
LOC: ER 08:17
DX: J06.9 Acute upper respiratory infection, unspecified (principal); H66.92 Otitis media, unspecified, left ear; J98.01 Acute bronchospasm; R51 Headache; H92.03 Otalgia, bilateral; F17.210 Nicotine dependence, cigarettes, uncomplicated; E11.9 Type 2 diabetes mellitus without complications; I10 Essential (primary) hypertension; Z98.51 Tubal ligation status; Z90.49 Acquired absence of other specified parts of digestive tract
CPT/HCPCS: 94640; 99283; 71046; J3490; J7620

== ENCOUNTER 2018-09-20 12:07 | Observation (INO) | payer OTHER ==
[2018-09-20] MEDS ORDERED: ONDANSETRON 4 MG TAB.RAPDIS PO ONE (12:26)
[2018-09-20] MEDS ORDERED: ASPIRIN 81 MG TABLET, CHEWABLE PO ONE (12:26)
--- NOTE | 2018-09-20 12:28 | ER Document Report ---
ED Medical Screen (RME) - General Chief Complaint: Chest Pain Stated Complaint: CHEST PAIN Time Seen by Provider: 09/20/18 12:23 Primary Care Provider: RONALD MCCLENDON FNP-C [Primary Care Provider] - Follow up as needed Notes: She presents emergency department with complaints of chest pain her heart feeling like it is going very fast. She reports symptoms for about a week. Has history of tachycardia. Also is a diabetic with asthma. Complains of feeling very nauseated and very tired. EKG is sinus rhythm no change from previous EKG. Heart rate on arrival was 103 I have greeted and performed a rapid initial assessment of this patient. A comprehensive ED assessment and evaluation of the patient, analysis of test results and completion of the medical decision making process will be conducted by additional ED providers. Dictation of this chart was performed using voice recognition software; therefore, there may be some unintended grammatical errors. TRAVEL OUTSIDE OF THE [place] IN LAST 30 DAYS: No - Related Data Allergies/Adverse Reactions: divalproex sodium [From Depakote] Allergy (Verified 09/20/18 12:09) hydromorphone HCl [From Dilaudid] Allergy (Verified 09/20/18 12:09) morphine [Morphine] Allergy (Verified 09/20/18 12:09) nalbuphine HCl [From Nubain] Allergy (Verified 09/20/18 12:09) niacin [Niacin] Allergy (Verified 09/20/18 12:09) oxycodone HCl [From Percocet] Allergy (Verified 09/20/18 12:09) Past Medical History - Past Medical History Cardiac Medical History: Reports: Hx Hypercholesterolemia, Hx Hypertension Pulmonary Medical History: Reports: Hx Asthma Neurological Medical History: Reports: Hx Migraine Endocrine Medical History: Reports: Hx Diabetes Mellitus Type 2 Renal/ Medical History: Reports: Hx Ovarian Cysts. Denies: Hx Peritoneal Dialysis GI Medical History: Reports: Hx Gastroesophageal Reflux Disease, Hx Ulcer Musculoskeltal Medical History: Reports Hx Arthritis Psychiatric Medical History: Reports: Hx Attention Deficit Hyperactivity Disorder Past Surgical History: Reports: Hx Adenoidectomy, Hx Section, Hx Cholecystectomy, Hx Gynecologic Surgery - Ovarian cyst resection, Hx Oral Surgery - [place] teeth, Hx Tonsillectomy, Hx Tubal Ligation - Immunizations Hx Diphtheria, Pertussis, Tetanus Vaccination: Yes Physical Exam - Vital signs Vitals: Temp Pulse Resp BP Pulse Ox 97.8 F 103 H 20 160/93 H 99 09/20/18 12:21 09/20/18 12:21 09/20/18 12:21 09/20/18 12:21 09/20/18 12:21 Course - Vital Signs Vital signs: Temp Pulse Resp BP Pulse Ox 97.8 F 103 H 20 160/93 H 99 09/20/18 12:21 09/20/18 12:21 09/20/18 12:21 09/20/18 12:21 09/20/18 12:21 Doctor's Discharge - Discharge Referrals: RONALD MCCLENDON, ENERGY DIRECTOR-C [Primary Care Provider] - Follow up as needed
[2018-09-20 12:54] LABS: ABSOLUTE EOSINOPHILS # (AUTO) 0.2 10^3/uL (0.0-0.6); ABSOLUTE LYMPHOCYTES (AUTO) 4.1 10^3/uL (0.5-4.7); ABSOLUTE MONOCYTES (AUTO) 0.7 10^3/uL (0.1-1.4); ABSOLUTE NEUT (AUTO) 8.6 10^3/uL (1.7-8.2); BASOPHILS % (AUTO) 0.2 % (0-2); EOSINOPHILS % (AUTO) 1.1 % (0-6); HEMATOCRIT 45.8 % (36.0-47.0); HEMOGLOBIN 15.6 g/dL (12.0-15.5); LYMPHOCYTES % (AUTO) 30.2 % (13-45); MEAN CORPUSCULAR HEMOGLOBIN 28.9 pg (27.0-33.4); MEAN CORPUSCULAR HGB CONC 34.1 g/dL (32.0-36.0); MEAN CORPUSCULAR VOLUME 85 fl (80-97); MONOCYTES % (AUTO) 5.5 % (3-13); PLATELET COUNT 256 10^3/uL (150-450); RED CELL DISTRIBUTION WIDTH 13.6 % (11.5-14.0); TOTAL CELLS COUNTED % (AUTO) 100 %; WHITE BLOOD COUNT 13.6 10^3/uL (4.0-10.5)
[2018-09-20 13:05] LABS: APPEARANCE,URINE SLIGHTLY-CLOUDY; BILIRUBIN,URINE NEGATIVE (NEGATIVE); COLOR,URINE STRAW; GLUCOSE, URINE >=500 mg/dL (NEGATIVE); KETONES,URINE NEGATIVE (NEGATIVE); LEUKOCYTE ESTERASE,URINE NEGATIVE (NEGATIVE); NITRITE,URINE NEGATIVE (NEGATIVE); PROTEIN,URINE NEGATIVE (NEGATIVE); URINE SPECIFIC GRAVITY 1.002; UROBILINOGEN,URINE NEGATIVE mg/dL (<2.0)
--- NOTE | 2018-09-20 13:12 | RADIOLOGY REPORT (SQ) ---
EXAM DESCRIPTION: CHEST 2 VIEWS COMPLETED DATE/TIME: 09/20/2018 12:59 pm REASON FOR STUDY: cp COMPARISON: 08/12/2018 EXAM PARAMETERS: NUMBER OF VIEWS: two views TECHNIQUE: Digital Frontal and Lateral radiographic views of the chest acquired. RADIATION DOSE: NA LIMITATIONS: none FINDINGS: LUNGS AND PLEURA: No opacities, masses or pneumothorax. No pleural effusion. MEDIASTINUM AND HILAR STRUCTURES: No masses or contour abnormalities. HEART AND VASCULAR STRUCTURES: Heart normal size. No evidence for failure. BONES: No acute findings. HARDWARE: None in the chest. Prior cholecystectomy. OTHER: No other significant finding. IMPRESSION: NO ACUTE RADIOGRAPHIC FINDING IN THE CHEST. TECHNICAL DOCUMENTATION: JOB ID: [id number] [employer]- All Rights Reserved Reading location - IP/workstation name: [email or web address]
[2018-09-20 13:17] LABS: ALANINE AMINOTRANSFERASE 25 U/L (9-52); ALBUMIN 4.5 g/dL (3.5-5.0); ALKALINE PHOSPHATASE 95 U/L (38-126); ANION GAP 14 (5-19); ASPARTATE AMINO TRANSFERASE 17 U/L (14-36); BILIRUBIN,DIRECT 0.3 mg/dL (0.0-0.4); BILIRUBIN,TOTAL 0.6 mg/dL (0.2-1.3); BLOOD UREA NITROGEN 15 mg/dL (7-20); CALCIUM 10.5 mg/dL (8.4-10.2); CARBON DIOXIDE 24 mmol/L (22-30); CHLORIDE 100 mmol/L (98-107); CREATINE KINASE 39 U/L (30-135); GLUCOSE 271 mg/dL (75-110); POTASSIUM 4.3 mmol/L (3.6-5.0); SODIUM 137.9 mmol/L (137-145); TOTAL PROTEIN 7.6 g/dL (6.3-8.2)
[2018-09-20 13:46] LABS: FREE T3 3.44 pg/mL (2.77-5.27); FREE T4 (FREE THYROXINE) 0.83 ng/dL (0.78-2.19)
[2018-09-20 14:00] LABS: THYROID STIMULATING HORMONE 2.43 uIU/mL (0.47-4.68)
--- NOTE | 2018-09-20 14:19 | ER Document Report ---
ED Cardiac - General Chief Complaint: Chest Pain Stated Complaint: CHEST PAIN Time Seen by Provider: 09/20/18 12:23 Notes: 48-year-old female to the emergency department chief complaint of chest pain. Patient states that her heart begins to race and she has chest pain whenever she tries to do any activity. Became severe today. Radiating to the left side of her chest. Feels heaviness and squeezing sensation in her chest with activity. Patient does smoke. Father at 55 of a heart attack. Patient does note that she has extremely high lipids but does not know what her most recent lab work shows. States that she is a diabetic and only takes metformin once a day. Does not have regular outpatient care. States that she had a stress test about 3 or 4 years ago and it was reportedly normal. TRAVEL OUTSIDE OF THE [place] IN LAST 30 DAYS: No - HPI Patient complains to provider of: Chest pain, Chest tightness Chest pain location: Substernal Quality of pain: Intermittent, Dull, Heaviness Severity now: Moderate Severity at worst: Moderate Pain level currently: 3 Chest pain precipitating factors: Physical Exertion Associated symptoms: Shortness of breath Exacerbated by: Activity - Related Data Allergies/Adverse Reactions: divalproex sodium [From Depakote] Allergy (Verified 09/20/18 12:09) hydromorphone HCl [From Dilaudid] Allergy (Verified 09/20/18 12:09) morphine [Morphine] Allergy (Verified 09/20/18 12:09) nalbuphine HCl [From Nubain] Allergy (Verified 09/20/18 12:09) niacin [Niacin] Allergy (Verified 09/20/18 12:09) oxycodone HCl [From Percocet] Allergy (Verified 09/20/18 12:09) Past Medical History - General Information source: Patient - Social History Smoking Status: Current Every Day Smoker Chew tobacco use (# tins/day): No Frequency of alcohol use: None Drug Abuse: None Lives with: Family Family History: Arthritis, CAD - Father with heart attack at 55., CVA, DM, Hyperlipidemia, Hypertension, Thyroid Disfunction Patient has suicidal ideation: No Patient has homicidal ideation: No - Past Medical History Cardiac Medical History: Reports: Hx Hypercholesterolemia, Hx Hypertension Pulmonary Medical History: Reports: Hx Asthma Neurological Medical History: Reports: Hx Migraine Endocrine Medical History: Reports: Hx Diabetes Mellitus Type 2 Renal/ Medical History: Reports: Hx Ovarian Cysts. Denies: Hx Peritoneal Dialysis GI Medical History: Reports: Hx Gastroesophageal Reflux Disease, Hx Ulcer Musculoskeletal Medical History: Reports Hx Arthritis Psychiatric Medical History: Reports: Hx Attention Deficit Hyperactivity Disorder Past Surgical History: Reports: Hx Adenoidectomy, Hx Section, Hx Cholecystectomy, Hx Gynecologic Surgery - Ovarian cyst resection, Hx Oral Surgery - [place] teeth, Hx Tonsillectomy, Hx Tubal Ligation - Immunizations Hx Diphtheria, Pertussis, Tetanus Vaccination: Yes Hx Pneumococcal Vaccination: 01/07/13 Review of Systems - Review of Systems Notes: Constitutional: denies: Chills, Diaphoresis, Fever, Malaise, Weakness EENT: denies: Eye discharge, Blurred vision, Tearing, Double vision, Nose congestion, Nose discharge, Throat swelling, Mouth pain Cardiovascular: denies: Palpitations, Heart racing, Orthopnea, Dyspnea, +Chest pain Respiratory: denies: Cough, Hurts to breathe, Wheezing, Shortness of breath Gastrointestinal: denies: Abdominal pain, Diarrhea, Nausea, Vomiting, Black stoo ls, bright red blood in stool Genitourinary: denies: Burning, Dysuria, Discharge, Frequency, Flank pain, Hematuria Musculoskeletal: denies: Joint pain, Joint swelling, Muscle pain, Muscle stiffness, back pain Hematologic/Lymphatic: denies: Anemia, Easy bleeding, Easy bruising, Blood clots Neurological/Psychological: denies: Confusion, Dementia, Depression, Loss of consciousness Skin: No lesions, no masses, no skin breakdown, no abscesses Physical Exam - Vital signs Vitals: Temp Pulse Resp BP Pulse Ox 97.8 F 103 H 20 160/93 H 99 09/20/18 12:21 09/20/18 12:21 09/20/18 12:21 09/20/18 12:21 09/20/18 12:21 Interpretation: Normal - General General appearance: Appears well, Alert - HEENT Head: Normocephalic, Atraumatic Eyes: Normal Pupils: PERRL - Respiratory Respiratory status: No respiratory distress Chest status: Nontender Breath sounds: Normal Chest palpation: Normal - Cardiovascular Rhythm: Regular Heart sounds: Normal auscultation Murmur: No - Abdominal Inspection: Normal Distension: No distension Bowel sounds: Normal Tenderness: Nontender Organomegaly: No organomegaly - Back Back: Normal, Nontender - Extremities General upper extremity: Normal inspection, Nontender, Normal color, Normal ROM, Normal temperature General lower extremity: Normal inspection, Nontender, Normal color, Normal ROM, Normal temperature, Normal weight bearing. No: Kuldip's sign - Neurological Neuro grossly intact: Yes Cognition: Normal Orientation: AAOx4 Rocael Coma Scale Eye Opening: Spontaneous [place] Coma Scale Verbal: Oriented [place] Coma Scale Motor: Obeys Commands [place] Coma Scale Total: 15 Speech: Normal Motor strength normal: LUE, RUE, LLE, RLE Sensory: Normal - Psychological Associated symptoms: Normal affect, Normal mood - Skin Skin Temperature: Warm Skin Moisture: Dry Skin Color: Normal Course - Re-evaluation Re-evalutation: 09/20/18 15:57 Laboratory 09/20/18 09/20/18 09/20/18 12:34 12:34 12:34 WBC 13.6 H RBC 5.40 H Hgb 15.6 H Hct 45.8 MCV 85 MCH 28.9 MCHC 34.1 RDW 13.6 Plt Count 256 Seg Neutrophils % 63.0 Lymphocytes % 30.2 Monocytes % 5.5 Eosinophils % 1.1 Basophils % 0.2 Absolute Neutrophils 8.6 H Absolute Lymphocytes 4.1 Absolute Monocytes 0.7 Absolute Eosinophils 0.2 Absolute Basophils 0.0 Sodium 137.9 Potassium 4.3 Chloride 100 Carbon Dioxide 24 Anion Gap 14 BUN 15 Creatinine 0.68 Est GFR ( Amer) > 60 Est GFR (Non-Af Amer) > 60 Glucose 271 H Hemoglobin A1c % Calcium 10.5 H Total Bilirubin 0.6 Direct Bilirubin 0.3 Neonat Total Bilirubin Not Reportable Neonat Direct Bilirubin Not Reportable Neonat Indirect Bili Not Reportable AST 17 ALT 25 Alkaline Phosphatase 95 Creatine Kinase 39 Troponin I < 0.012 Total Protein 7.6 Albumin 4.5 TSH Free T4 Free T3 pg/mL Urine Color Urine Appearance Urine pH Ur Specific [place] Urine Protein Urine Glucose (UA) Urine Ketones Urine Blood Urine Nitrite Urine Bilirubin Urine Urobilinogen Ur Leukocyte Esterase Urine WBC (Auto) Urine RBC (Auto) Urine Bacteria (Auto) Squamous Epi Cells Auto Urine Mucus (Auto) Urine Ascorbic Acid Urine HCG, Qual 09/20/18 09/20/18 09/20/18 12:34 12:34 12:34 WBC RBC Hgb Hct MCV MCH MCHC RDW Plt Count Seg Neutrophils % Lymphocytes % Monocytes % Eosinophils % Basophils % Absolute Neutrophils Absolute Lymphocytes Absolute Monocytes Absolute Eosinophils Absolute Basophils Sodium Potassium Chloride Carbon Dioxide Anion Gap BUN Creatinine Est GFR ( Amer) Est GFR (Non-Af Amer) Glucose Hemoglobin A1c % 8.4 H Calcium Total Bilirubin Direct Bilirubin Neonat Total Bilirubin Neonat Direct Bilirubin Neonat Indirect Bili AST ALT Alkaline Phosphatase Creatine Kinase Troponin I Total Protein Albumin TSH 2.43 Free T4 0.83 Free T3 pg/mL 3.44 Urine Color STRAW Urine Appearance SLIGHTLY-CLOUDY Urine pH 7.0 Ur Specific [place] 1.002 Urine Protein NEGATIVE Urine Glucose (UA) >=500 H Urine Ketones NEGATIVE Urine Blood NEGATIVE Urine Nitrite NEGATIVE Urine Bilirubin NEGATIVE Urine Urobilinogen NEGATIVE Ur Leukocyte Esterase NEGATIVE Urine WBC (Auto) 1 Urine RBC (Auto) 1 Urine Bacteria (Auto) TRACE Squamous Epi Cells Auto 3 Urine Mucus (Auto) OCC Urine Ascorbic Acid NEGATIVE Urine HCG, Qual NEGATIVE Chest X-Ray 09/20/18 12:26 IMPRESSION: NO ACUTE RADIOGRAPHIC FINDING IN THE CHEST. Chest/Abdomen CTA 09/20/18 14:35 IMPRESSION: NORMAL CTA OF THE CHEST. NO PULMONARY EMBOLI. There was some concern that potentially her symptoms could be a PE based on the fact that she has had a DVT in the past and was having chest pain and tachycardia. An angiogram was done which was unremarkable. No acute pathology seen on chest x-ray or EKG. Slight elevated WBC count. Obviously uncontrolled diabetes. Borderline hypertension. Smoker. Strong family history of heart disease. At this time uncomfortable sending her home. Hospitalist was consulted. Hospitalist is requesting a second troponin at this time before admitting. - Vital Signs Vital signs: Temp Pulse Resp BP Pulse Ox 97.8 F 103 H 19 136/60 H 95 09/20/18 12:21 09/20/18 12:21 09/20/18 16:00 09/20/18 15:01 09/20/18 16:57 - Laboratory Result Diagrams: 09/20/18 12:34 09/20/18 12:34 Laboratory results interpreted by me: 09/20/18 09/20/18 09/20/18 12:34 12:34 12:34 WBC 13.6 H RBC 5.40 H Hgb 15.6 H Absolute Neutrophils 8.6 H Glucose 271 H Hemoglobin A1c % Calcium 10.5 H Urine Glucose (UA) >=500 H 09/20/18 12:34 WBC RBC Hgb Absolute Neutrophils Glucose Hemoglobin A1c % 8.4 H Calcium Urine Glucose (UA) - EKG Interpretation by Ct EKG shows normal: Sinus rhythm, [place], Intervals, QRS Complexes, ST-T Waves Discharge - Discharge Clinical Impression: Chest pain Qualifiers: Chest pain type: unspecified Qualified Code(s): R07.9 - Chest pain, unspecified Condition: Good Disposition: ADMITTED OBSERVATION Admitting Provider: El (Hospitalist) Unit Admitted: Telemetry
--- NOTE | 2018-09-20 14:34 | EKG REPORT ---
SEVERITY:- NORMAL ECG - SINUS RHYTHM : Confirmed by: Fredis Douglas MD 20-Sep-2018 14:34:07
--- NOTE | 2018-09-20 15:39 | RADIOLOGY REPORT (SQ) ---
EXAM DESCRIPTION: CTA CHEST COMPLETED DATE/TIME: 09/20/2018 3:25 pm REASON FOR STUDY: cp, tachycardia, hx of dvt COMPARISON: 02/27/2016 TECHNIQUE: CT scan of the chest performed using helical scanning technique with dynamic intravenous contrast injection. Images reviewed with lung, soft tissue and bone windows. Reconstructed coronal and sagittal MPR images reviewed. Additional 3 dimensional post-processing performed to develop Maximal Intensity Projection images (GA P). All images stored on PACS. All CT scanners at this facility use dose modulation, iterative reconstruction, and/or weight based d osing when appropriate to reduce radiation dose to as low as reasonably achievable (ALARA). [facility]: Dose Right [facility]: CareDose [facility]: Dose Right [facility]: Teradose 4D [facility]: CoupFlip CONTRAST TYPE AND DOSE: contrast/concentration: Isovue 350.00 mg/ml; Total Contrast Delivered: 82.0 ml; Total Saline Delivered: 110.0 ml Contrast bolus adequate for pulmonary arteries and aorta. RENAL FUNCTION: BUN 15 creatinine 0.68 RADIATION DOSE: CT Rad equipment meets quality standard of care and radiation dose reduction techniq ues were employed. CTDIvol: 19.4 - 34.7 mGy. DLP: 688 mGy-cm. . LIMITATIONS: None. FINDINGS: LUNGS AND PLEURA: No masses, infiltrates, or pneumothorax. No pleural effusions or pleura l calcifications. AORTA AND GREAT VESSELS: No aneurysm. No dissection. HEART: No pericardial effusion. No significant coronary artery calcifications. PULMONARY ARTERIES: No emboli visualized in the main pulmonary arteries or the segmental branches. HILAR AND MEDIASTINAL STRUCTURES: No identified masses or abnormal nodes. HARDWARE: None in the chest. UPPER ABDOMEN: No significant findings. Limited exam. THYROID AND OTHER SOFT TISSUES: No masses. No adenopathy. BONES: No acute or significant finding. 3D MIPS: Confirm above findings. OTHER: No other significant finding. IMPRESSION: NORMAL CTA OF THE CHEST. NO PULMONARY EMBOLI. COMMENT: Quality ID # [id number]: Final reports with documentation of one or more dose reduction techniques (e.g., Automated exposure control, adjustment of the mA and/or kV according to patient size, use of iterative reconstruction technique) TECHNICAL DOCUMENTATION: JOB ID: [id number] [employer]- All Rights Reserved Reading location - IP/workstation name: [email or web address]
[2018-09-20] MEDS ORDERED: ONDANSETRON HCL INJ/PF 4 MG/2 ML SDV IV PRN (17:07)
[2018-09-20] MEDS ORDERED: ACETAMINOPHEN 325 MG TABLET PO PRN (17:07)
[2018-09-20] MEDS ORDERED: DEXTROSE 50%-WATER 25 GM/50 ML DISP.SYRIN IV PRN ×2 (17:13)
[2018-09-20] MEDS ORDERED: GLUCAGON,HUMAN RECOMB 1 MG INJ IM PRN (17:13)
[2018-09-20] MEDS ORDERED: DEXTROSE 40% GEL 15 GM TUBE PO PRN ×2 (17:13)
[2018-09-20] MEDS ORDERED: IPRATROPIUM/ALBUTEROL 0.5-2.5 MG/3 ML AMPUL NEB PRN (17:14)
--- NOTE | 2018-09-20 17:23 | PDOC H&P ---
History of Present Illness Admission Date/PCP: 09/20/18 16:28 Patient complains of: Chest pain History of Present Illness: LUZ AUGUSTINE is a 48 year old female with history of diabetes mellitus hypertension, chronic smoker, hyperlipidemia, tachycardia, asthma, osteoarthritis came to the emergency room with complaints of on and off chest pains for the last 1 week. Chest pains associated with shortness of breath and palpitations and increasing sweating. With minimal activity like a getting out of the bed and walking around giving palpitations associated with slight left- sided chest pain. Denies any nausea vomiting diarrhea denies any cough cold symptoms. She never had this chest pains before. Decided to came to the emergency room for further evaluation. The work-up in the emergency room shows EKG was normal study 2 troponins are negative. Medical consult was called for admission and to rule out acute coronary syndrome. Past Medical History Cardiac Medical History: Reports: Hyperlipidema, Hypertension Pulmonary Medical History: Reports: Asthma Neurological Medical History: Reports: Migraine Endocrine Medical History: Reports: Diabetes Mellitus Type 2 GI Medical History: Reports: Gastroesophageal Reflux Disease Musculoskeltal Medical History: Reports: Arthritis Psychiatric Medical History: Reports: Attention Deficit Hyperactivity Disorder Past Surgical History Past Surgical History: Reports: Adenoidectomy, Section, Cholecystectomy, Tonsillectomy, Tubal Ligation Social History Lives with: Family Smoking Status: Current Every Day Smoker Frequency of Alcohol Use: None Hx Recreational Drug Use: No Family History Family History: Arthritis, CAD - Father with heart attack at 55., CVA, DM, Hyperlipidemia, Hypertension, Thyroid Disfunction Parental Family History Reviewed: Yes - Father at the age of 53 with heart attack Children Family History Reviewed: Yes Sibling(s) Family History Reviewed.: Yes Medication/Allergy Home Medications: Albuterol Sulfate [Proair HFA Inhalation Aerosol 8.5 gm MDI] 1 puff IH Q6HP PRN 09/20/18 Cholecalciferol (Vitamin D3) [Vitamin D3 1000 Unit Tablet] 2,000 unit PO DAILY 09/20/18 Ibuprofen [Motrin 800 mg Tablet] 800 mg PO TIDP PRN 09/20/18 Lisinopril/Hydrochlorothiazide [Zestoretic 10-12.5 mg Tablet] 1 tab PO DAILY 09/20/18 Metformin HCl [Glucophage XR 500 mg Tablet] 1,000 mg PO WSUPPER 09/20/18 Metoprolol Tartrate [Lopressor 50 mg Tablet] 50 mg PO DAILY 09/20/18 [place]-3/Dha/Epa/Fish Oil [Fish Oil 1,000 mg Softgel] 2,000 mg PO DAILY 09/20/18 Omeprazole 20 mg PO QAM 09/20/18 Simvastatin [Zocor 20 mg Tablet] 20 mg PO QPM 09/20/18 Allergies/Adverse Reactions: divalproex sodium [From Depakote] Allergy (Verified 09/20/18 12:09) hydromorphone HCl [From Dilaudid] Allergy (Verified 09/20/18 12:09) morphine [Morphine] Allergy (Verified 09/20/18 12:09) nalbuphine HCl [From Nubain] Allergy (Verified 09/20/18 12:09) niacin [Niacin] Allergy (Verified 09/20/18 12:09) oxycodone HCl [From Percocet] Allergy (Verified 09/20/18 12:09) Review of Systems Constitutional: ABSENT: fatigue, fever(s), weakness Eyes: ABSENT: visual disturbances Ears: ABSENT: hearing changes Nose, Mouth, and Throat: ABSENT: sore throat Cardiovascular: PRESENT: chest pain, palpitations. ABSENT: edema, orthropnea Respiratory: PRESENT: dyspnea Gastrointestinal: ABSENT: abdominal pain, constipation, diarrhea, hematemesis, hematochezia, nausea, vomiting Genitourinary: ABSENT: dysuria, hematuria Musculoskeletal: ABSENT: joint swelling Integumentary: ABSENT: rash, wounds Neurological: ABSENT: abnormal gait, abnormal speech, confusion, dizziness, focal weakness, syncope Psychiatric: ABSENT: anxiety, depression, homidical ideation, suicidal ideation Endocrine: ABSENT: cold intolerance, heat intolerance, polydipsia, polyuria Physical Exam Vital Signs: Temp Pulse Resp BP Pulse Ox 97.8 F 103 H 19 136/60 H 95 09/20/18 12:21 09/20/18 12:21 09/20/18 16:00 09/20/18 15:01 09/20/18 16:57 Intake & Output 09/19/18 09/20/18 09/21/18 06:59 06:59 06:59 Weight 94.9 kg General appearance: PRESENT: no acute distress, obese Head exam: PRESENT: atraumatic Eye exam: PRESENT: PERRLA Mouth exam: PRESENT: moist, tongue midline Neck exam: ABSENT: carotid bruit, JVD, lymphadenopathy, thyromegaly Respiratory exam: PRESENT: decreased breath sounds Cardiovascular exam: PRESENT: RRR. ABSENT: diastolic murmur, rubs, systolic murmur Pulses: PRESENT: normal dorsalis pedis pul GI/Abdominal exam: PRESENT: normal bowel sounds, soft. ABSENT: distended, guarding, mass, organolmegaly, rebound, tenderness Rectal exam: PRESENT: deferred Extremities exam: PRESENT: full ROM. ABSENT: calf tenderness, clubbing, pedal edema Neurological exam: PRESENT: alert, awake, oriented to person, oriented to place, oriented to time, oriented to situation, CN II-XII grossly intact. ABSENT: motor sensory deficit Psychiatric exam: PRESENT: appropriate affect, normal mood. ABSENT: homicidal ideation, suicidal ideation Results Laboratory Results: 09/20/18 12:34 09/20/18 12:34 09/20/18 09/20/18 09/20/18 12:34 12:34 12:34 WBC 13.6 H RBC 5.40 H Hgb 15.6 H Hct 45.8 MCV 85 MCH 28.9 MCHC 34.1 RDW 13.6 Plt Count 256 Seg Neutrophils % 63.0 Lymphocytes % 30.2 Monocytes % 5.5 Eosinophils % 1.1 Basophils % 0.2 Absolute Neutrophils 8.6 H Absolute Lymphocytes 4.1 Absolute Monocytes 0.7 Absolute Eosinophils 0.2 Absolute Basophils 0.0 Sodium 137.9 Potassium 4.3 Chloride 100 Carbon Dioxide 24 Anion Gap 14 BUN 15 Creatinine 0.68 Est GFR ( Amer) > 60 Est GFR (Non-Af Amer) > 60 Glucose 271 H Calcium 10.5 H Total Bilirubin 0.6 AST 17 ALT 25 Alkaline Phosphatase 95 Total Protein 7.6 Albumin 4.5 TSH 2.43 Free T4 0.83 Free T3 pg/mL 3.44 Urine Color Urine Appearance Urine pH Ur Specific [place] Urine Protein Urine Glucose (UA) Urine Ketones Urine Blood Urine Nitrite Ur Leukocyte Esterase Urine WBC (Auto) Urine RBC (Auto) 09/20/18 12:34 WBC RBC Hgb Hct MCV MCH MCHC RDW Plt Count Seg Neutrophils % Lymphocytes % Monocytes % Eosinophils % Basophils % Absolute Neutrophils Absolute Lymphocytes Absolute Monocytes Absolute Eosinophils Absolute Basophils Sodium Potassium Chloride Carbon Dioxide Anion Gap BUN Creatinine Est GFR ( Amer) Est GFR (Non-Af Amer) Glucose Calcium Total Bilirubin AST ALT Alkaline Phosphatase Total Protein Albumin TSH Free T4 Free T3 pg/mL Urine Color STRAW Urine Appearance SLIGHTLY-CLOUDY Urine pH 7.0 Ur Specific [place] 1.002 Urine Protein NEGATIVE Urine Glucose (UA) >=500 H Urine Ketones NEGATIVE Urine Blood NEGATIVE Urine Nitrite NEGATIVE Ur Leukocyte Esterase NEGATIVE Urine WBC (Auto) 1 Urine RBC (Auto) 1 09/20/18 09/20/18 09/20/18 12:34 12:34 16:00 Creatine Kinase 39 Troponin I < 0.012 < 0.012 Impressions: Chest X-Ray 09/20/18 12:26 IMPRESSION: NO ACUTE RADIOGRAPHIC FINDING IN THE CHEST. Chest/Abdomen CTA 09/20/18 14:35 IMPRESSION: NORMAL CTA OF THE CHEST. NO PULMONARY EMBOLI. Assessment and Plan - Diagnosis (1) Chest pain Qualifiers: Chest pain type: unspecified Qualified Code(s): R07.9 - Chest pain, unspecified Is this a current diagnosis for this admission?: Yes Plan: 09/20/2018-[facility]. Started on aspirin, simvastatin, Lovenox. GI prophylaxis was initiated. Serial cardiac enzymes x3 requested. Stress test was requested for tomorrow. Lipid panel was requested for tomorrow. She was started on oxygen 2 L nasal cannula. (2) Diabetes Qualifiers: Is this a current diagnosis for this admission?: No Plan: 09/20/2018-patient has history of type 2 diabetes mellitus on metformin at home to start on insulin sliding scale he is here and hold metformin. To check hemoglobin A1c tomorrow. Consult was requested. Compliant with medications are discussed with the patient. (3) Tobacco abuse Is this a current diagnosis for this admission?: Yes Plan: 09/20/2018 patient is a current daily smoker smokes close to more than 1 pack/day she has more than 30 years of smoking history. Smoking counseling was provided for more than [address] a nicotine patch 21 mg daily. (4) Hypercholesterolemia Is this a current diagnosis for this admission?: No Plan: 09/20/2018-patient has history of hypercholesterolemia taking simvastatin at home which was resumed during the hospital stay. Check lipid panel tomorrow morning. (5) Obesity (BMI 30.0-34.9) Is this a current diagnosis for this admission?: No Plan: 09/20/2018-patient's BMI is more than 34 diet exercise weight loss lifestyle modifications are discussed with the patient. Dietary consult was requested. (6) HTN (hypertension) Is this a current diagnosis for this admission?: No Plan: 09/20/2018-patient has history of hypertension she is taking lisinopr il/hydrochlorothiazide at home which was resumed during the hospital stay. - Time Time Spent with patient: 15-24 minutes Medications reviewed and adjusted accordingly: Yes Anticipated discharge: Home
[2018-09-20] MEDS: NICOTINE 21 MG/24 HR PATCH.TD24 TD SCH (18:59)
[2018-09-20] MEDS: ENOXAPARIN SODIUM INJ 40 MG/0.4 ML DISP.SYRIN SUBCUT SCH (18:59)
[2018-09-20] MEDS: OMEGA-3 ACID ETHYL ESTERS 1 GM CAPSULE PO SCH (19:00)
[2018-09-20] MEDS: METOPROLOL TARTRATE 50 MG TABLET PO SCH (19:00)
[2018-09-20] MEDS: DOCUSATE SODIUM 100 MG CAPSULE PO SCH (19:07)
--- NOTE | 2018-09-20 19:11 | EKG REPORT ---
SEVERITY:- NORMAL ECG - SINUS RHYTHM : Confirmed by: Fredis Douglas MD 20-Sep-2018 19:11:10
[2018-09-20] MEDS: INSULIN REG, HUMAN 100 UNIT/ML 3 ML VIAL (PYX) SUBCUT SCH (21:46)
[2018-09-20] MEDS: FAMOTIDINE 20 MG TABLET PO SCH (21:46)
[2018-09-20] MEDS ORDERED: SIMVASTATIN 10 MG TABLET PO SCH (22:00)
[2018-09-21 05:34] LABS: ABSOLUTE EOSINOPHILS # (AUTO) 0.2 10^3/uL (0.0-0.6); ABSOLUTE LYMPHOCYTES (AUTO) 4.1 10^3/uL (0.5-4.7); ABSOLUTE MONOCYTES (AUTO) 0.7 10^3/uL (0.1-1.4); ABSOLUTE NEUT (AUTO) 3.7 10^3/uL (1.7-8.2); BASOPHILS % (AUTO) 0.4 % (0-2); EOSINOPHILS % (AUTO) 2.1 % (0-6); HEMATOCRIT 39.6 % (36.0-47.0); HEMOGLOBIN 13.9 g/dL (12.0-15.5); LYMPHOCYTES % (AUTO) 47.2 % (13-45); MEAN CORPUSCULAR HEMOGLOBIN 29.4 pg (27.0-33.4); MEAN CORPUSCULAR VOLUME 84 fl (80-97); MONOCYTES % (AUTO) 7.9 % (3-13); PLATELET COUNT 187 10^3/uL (150-450); RED BLOOD COUNT 4.72 10^6/uL (3.72-5.28); RED CELL DISTRIBUTION WIDTH 13.4 % (11.5-14.0); SEGMENTED NEUTROPHILS % (AUTO) 42.4 % (42-78); TOTAL CELLS COUNTED % (AUTO) 100 %; WHITE BLOOD COUNT 8.7 10^3/uL (4.0-10.5)
[2018-09-21 05:50] LABS: ALANINE AMINOTRANSFERASE 19 U/L (9-52); ALBUMIN 3.6 g/dL (3.5-5.0); ALKALINE PHOSPHATASE 82 U/L (38-126); ANION GAP 11 (5-19); ASPARTATE AMINO TRANSFERASE 15 U/L (14-36); BILIRUBIN,DIRECT 0.3 mg/dL (0.0-0.4); BILIRUBIN,TOTAL 0.3 mg/dL (0.2-1.3); BLOOD UREA NITROGEN 17 mg/dL (7-20); CALCIUM 9.9 mg/dL (8.4-10.2); CARBON DIOXIDE 21 mmol/L (22-30); CHLORIDE 105 mmol/L (98-107); CHOLESTEROL 264.68 mg/dL (0-200); CREATINE KINASE 34 U/L (30-135); GLUCOSE 188 mg/dL (75-110); POTASSIUM 4.4 mmol/L (3.6-5.0); SODIUM 136.6 mmol/L (137-145); TOTAL PROTEIN 6.3 g/dL (6.3-8.2)
[2018-09-21 06:02] LABS: DIRECT LDL 96 mg/dL (<100)
[2018-09-21 06:03] LABS: TRIGLYCERIDES 1289 mg/dL (<150)
[2018-09-21] MEDS ORDERED: (PENDING PHARMACY ID) (Omega-3/Dha/Epa/Fish Oil [Fish Oil 1,000 Mg Softgel] 2,000 MG) PO SCH (10:00)
[2018-09-21] MEDS ORDERED: (PENDING PHARMACY ID) (Lisinopril/Hydrochlorothiazide [Zestoretic 10-12.5 Mg Tablet] 1 TAB PO SCH (10:00)
[2018-09-21] MEDS ORDERED: CHOLECALCIFEROL (D3) 1,000 UNIT TABLET PO SCH (10:00)
[2018-09-21] MEDS ORDERED: LISINOPRIL 10 MG TABLET PO SCH (10:00)
[2018-09-21] MEDS ORDERED: HYDROCHLOROTHIAZIDE 12.5 MG TABLET PO SCH (10:00)
[2018-09-21] MEDS ORDERED: FENOFIBRATE NANOCRYSTALLIZED 145 MG TABLET PO SCH (10:00)
[2018-09-21] MEDS: INSULIN REG, HUMAN 100 UNIT/ML 3 ML VIAL (PYX) SUBCUT SCH ×2 (11:07→12:03)
[2018-09-21] MEDS: OMEGA-3 ACID ETHYL ESTERS 1 GM CAPSULE PO SCH (11:09)
[2018-09-21] MEDS: FAMOTIDINE 20 MG TABLET PO SCH (11:09)
[2018-09-21] MEDS: METOPROLOL TARTRATE 50 MG TABLET PO SCH (11:09)
[2018-09-21] MEDS: DOCUSATE SODIUM 100 MG CAPSULE PO SCH (11:09)
[2018-09-21] MEDS: NICOTINE 21 MG/24 HR PATCH.TD24 TD SCH (11:10)
[2018-09-21] MEDS: ENOXAPARIN SODIUM INJ 40 MG/0.4 ML DISP.SYRIN SUBCUT SCH (11:10)
[2018-09-21] MEDS ORDERED: REGADENOSON INJ 0.4 MG/5 ML DISP.SYRIN IV ONE (11:55)
[2018-09-21 12:11] VITALS: BP 141/87
[2018-09-21] MEDS ORDERED: ONDANSETRON HCL INJ/PF 4 MG/2 ML SDV IV PRN (14:00)
--- NOTE | 2018-09-21 16:36 | PDOC DISCHARGE SUMMARY ---
General - Admit/Disc Date/PCP Admission Date/Primary Care Provider: 09/20/18 16:28 Discharge Date: 09/21/18 - Discharge Diagnosis (1) Chest pain Is this a current diagnosis for this admission?: Yes Summary: Noncardiac. Troponins were negative. Stress test was negative. CT of the chest was negative. (2) Obesity (BMI 30.0-34.9) Is this a current diagnosis for this admission?: No Summary: Strongly encouraged lifestyle modification (3) Diabetes Is this a current diagnosis for this admission?: Yes Summary: Encouraged better control. She says that her previous A1c was 6.5%. Wants to control with diet. (4) Hypercholesterolemia Is this a current diagnosis for this admission?: Yes Summary: Continue Zocor. Added TriCor for hypertriglyceridemia. - Additional Information Discharge Diet: Cardiac, Diabetic Discharge Activity: Activity As Tolerated Prescriptions: Fenofibrate Nanocrystallized [Tricor 145 mg Tablet] 145 mg PO DAILY #30 tablet Home Medications: Albuterol Sulfate [Proair HFA Inhalation Aerosol 8.5 gm MDI] 1 puff IH Q6HP PRN 09/20/18 Cholecalciferol (Vitamin D3) [Vitamin D3 1000 Unit Tablet] 2,000 unit PO DAILY 09/20/18 Ibuprofen [Motrin 800 mg Tablet] 800 mg PO TIDP PRN 09/20/18 Lisinopril/Hydrochlorothiazide [Zestoretic 10-12.5 mg Tablet] 1 tab PO DAILY 09/20/18 Metformin HCl [Glucophage XR 500 mg Tablet] 1,000 mg PO WSUPPER 09/20/18 Metoprolol Tartrate [Lopressor 50 mg Tablet] 50 mg PO DAILY 09/20/18 [place]-3/Dha/Epa/Fish Oil [Fish Oil 1,000 mg Softgel] 2,000 mg PO DAILY 09/20/18 Omeprazole 20 mg PO QAM 09/20/18 Simvastatin [Zocor 20 mg Tablet] 20 mg PO QPM 09/20/18 Fenofibrate Nanocrystallized [Tricor 145 mg Tablet] 145 mg PO DAILY #30 tablet 09/21/18 History of Present Illness History of Present Illness: LUZ AUGUSTINE is a 48 year old female with history of diabetes mellitus hypertension, chronic smoker, hyperlipidemia, tachycardia, asthma, osteoarthritis came to the emergency room with complaints of on and off chest pains for the last 1 week. Chest pains associated with shortness of breath and palpitations and increasing sweating. With minimal activity like a getting out of the bed and walking around giving palpitations associated with slight left- sided chest pain. Denies any nausea vomiting diarrhea denies any cough cold symptoms. She never had this chest pains before. Decided to came to the emergency room for further evaluation. The work-up in the emergency room shows EKG was normal study 2 troponins are negative. Medical consult was called for admission and to rule out acute coronary syndrome. Hospital Course Hospital Course: Troponins were negative. CT of the chest was negative. She had a stress test today and that was negative. She is a diabetic and was encouraged to improve her control of her diabetes. She also smokes half a pack cigarettes a day was strongly encouraged to stop. She had substantially elevated triglycerides, high enough that I thought it worthwhile to start her on a fibric acid derivative. Follow-up was arranged for approximately 1 week from discharge. Her labs and examination were reassuring she was discharged in good condition. Physical Exam Vital Signs: Temp Pulse Resp BP Pulse Ox 97.5 F 72 16 141/87 H 97 09/21/18 15:31 09/21/18 15:31 09/21/18 15:31 09/21/18 15:31 09/21/18 15:31 Intake & Output 09/20/18 09/21/18 09/22/18 06:59 06:59 06:59 Intake Total 360 300 Balance 360 300 Weight 94.3 kg General appearance: PRESENT: no acute distress, cooperative, disheveled, morbidly obese Respiratory exam: PRESENT: clear to auscultation yayo, symmetrical, unlabored. ABSENT: accessory muscle use, chest wall tenderness, prolonged expiratory phas, rales, rhonchi, tachypnea, wheezes Cardiovascular exam: PRESENT: RRR, +S1, +S2 Pulses: PRESENT: normal carotid pulses Vascular exam: PRESENT: normal capillary refill GI/Abdominal exam: PRESENT: normal bowel sounds, soft. ABSENT: distended, guarding, rebound, tenderness Extremities exam: ABSENT: clubbing, pedal edema Musculoskeletal exam: PRESENT: normal inspection. ABSENT: deformity Neurological exam: PRESENT: alert, awake, oriented to person, oriented to place, oriented to time, oriented to situation Psychiatric exam: PRESENT: appropriate affect, normal mood Skin exam: PRESENT: dry, warm Results Laboratory Results: 09/21/18 05:10 09/21/18 05:10 09/21/18 09/21/18 09/21/18 05:10 05:10 05:10 WBC 8.7 RBC 4.72 Hgb 13.9 Hct 39.6 MCV 84 MCH 29.4 MCHC 35.0 RDW 13.4 Plt Count 187 Seg Neutrophils % 42.4 Lymphocytes % 47.2 H Monocytes % 7.9 Eosinophils % 2.1 Basophils % 0.4 Absolute Neutrophils 3.7 Absolute Lymphocytes 4.1 Absolute Monocytes 0.7 Absolute Eosinophils 0.2 Absolute Basophils 0.0 Sodium 136.6 L Potassium 4.4 Chloride 105 Carbon Dioxide 21 L Anion Gap 11 BUN 17 Creatinine 0.64 Est GFR ( Amer) > 60 Est GFR (Non-Af Amer) > 60 Glucose 188 H Calcium 9.9 Total Bilirubin 0.3 AST 15 ALT 19 Alkaline Phosphatase 82 Total Protein 6.3 Albumin 3.6 Triglycerides 1289 H Cholesterol 264.68 H LDL Cholesterol Direct 96 VLDL Cholesterol UNABLE TO CALCULATE HDL Cholesterol 34 L TSH 3.11 09/20/18 09/20/18 09/20/18 12:34 12:34 16:00 Creatine Kinase 39 CK-MB (CK-2) Troponin I < 0.012 < 0.012 09/20/18 09/20/18 09/20/18 16:00 16:00 22:08 Creatine Kinase 40 31 CK-MB (CK-2) < 0.22 Troponin I 09/20/18 09/20/18 09/21/18 22:08 22:08 05:10 Creatine Kinase 34 CK-MB (CK-2) 0.29 Troponin I < 0.012 09/21/18 05:10 Creatine Kinase CK-MB (CK-2) 0.39 Troponin I Impressions: Chest X-Ray 09/20/18 12:26 IMPRESSION: NO ACUTE RADIOGRAPHIC FINDING IN THE CHEST. Chest/Abdomen CTA 09/20/18 14:35 IMPRESSION: NORMAL CTA OF THE CHEST. NO PULMONARY EMBOLI. Qualifiers - * PATIENT BEING DISCHARGED WITH ANY OF THE FOLLOWING DIAGNOSIS: No Acute Heart Failure Is this a Heart Failure Patient?: No Plan Time Spent: Less than 30 Minutes
--- NOTE | 2018-09-21 20:47 | DRAGON STRESS TEST REPORT ---
Intravenous Lexiscan Cardiolite stress test using single photon emmision computerized tomography. Date of procedure: 09/21/2018. Ordering Provider: Dr. Gallegos. Patient's status: In Patient Indication: Chest pain. Coronary risk factors: Age, diabetes mellitus, hypertension, dyslipidemia, tobacco abuse disorder, and family history of coronary artery disease. Resting EKG: Sinus Rhythm. Within Normal Limits. Stress EKG: No changes of ischemia. Reason for termination: Protocol. Conclusions: Normal EKG and hemodynamic response to IV Lexiscan. Nuclear data: At rest the patient was given 14.86 millicuries of technetium 99m sestamibi injected intravenously. As per protocol rest non gated SPECT images were obtained. Subsequently the patient was given intravenous Lexiscan at a dose of 0.4 mg in 5 mL intravenously, followed by flush with normal saline. Subsequently the stress dose of 41.5 millicuries of technetium 99m sestamibi was injected intravenously. As per protocol stress gated images were obtained. Nuclear interpretation: Review of images showed that there is mild breast attenuation artifact of the anterior wall in both rest and stress images. Hence there was a mild perfusion defect involving the anterior wall in both rest and the stress images. This area had normal motion contraction and thickening by gated study. Hence this is a breast tissue attenuation artifact of the anterior wall.. This rest of the l segments of the myocardium had normal perfusion at rest, and normal perfusion post stress with IV Lexiscan. All segments of the myocardium had normal motion, contraction, and thickening by gated study. T. I D. ratio was normal at 1.11. There is no transient ischemic dilatation of the left ventricle. Computer read rest, and stress left ventricular ejection fraction were 71 %, and 66 %, respectively. Conclusion: 1. There is no scintigraphic evidence of Lexiscan induced myocardial ischemia. 2. There is no scintigraphic evidence of myocardial infarction/scar. 3. Mild breast tissue attenuation artifact involving the anterior wall. Recommendations: Aggressive risk factor modification, and treating the underlying co- morbidities. MTDD
== END 2018-09-21 16:58 | disposition home or self-care (01) ==
LOC: ER 12:07 → EH 16:28 → 4N 17:24
PROVIDERS: ADMIT Internal Medicine; ATTEND Internal Medicine
DX: R07.89 Other chest pain (principal); E66.9 Obesity, unspecified; Z68.34 Body mass index [BMI] 34.0-34.9, adult; E11.9 Type 2 diabetes mellitus without complications; E78.00 Pure hypercholesterolemia, unspecified; Z79.84 Long term (current) use of oral hypoglycemic drugs; Z79.899 Other long term (current) drug therapy; I10 Essential (primary) hypertension; M19.90 Unspecified osteoarthritis, unspecified site; F17.210 Nicotine dependence, cigarettes, uncomplicated; K21.9 Gastro-esophageal reflux disease without esophagitis; F90.9 Attention-deficit hyperactivity disorder, unspecified type; Z90.49 Acquired absence of other specified parts of digestive tract; Z88.8 Allergy status to other drugs, medicaments and biological substances
CPT/HCPCS: 93005 ×2; 99285; 36415 ×2; 84439; 82553 ×2; 82962 ×2; 82550 ×2; 84443 ×2; 85025 ×2; 81025; 80053 ×2; 81001; 84484; 84481; 83036 ×2; 80061; 93017; 71046; 78452; 71275; 93010; G0378 ×2; A9500; J2785; S0119; J1650; J1815 ×2; J3490 ×2; Q9969

== ENCOUNTER → 2018-09-27 | Outpatient (CLI) | payer OTHER ==
[2018-09-29 07:10] LABS: ESTRONE SERUM 70 pg/mL (.)
[2018-09-29 09:20] LABS: TESTOSTERONE FREE (DIRECT) 2.2 pg/mL (0.0-4.2)
[2018-09-30 17:33] LABS: ESTROGENS TOTAL 149 pg/mL (.)
== END ==
LOC: LAB 07:44
PROVIDERS: ATTEND Physician Assistant
DX: N95.1 Menopausal and female climacteric states (principal)
CPT/HCPCS: 36415; 82670; 82672; 82679; 83001; 83002; 84144; 84402; 84403

== ENCOUNTER 2018-10-26 08:24 | Emergency (ER) | payer OTHER ==
--- NOTE | 2018-10-26 10:22 | ER Document Report ---
HPI - HPI Patient complains to provider of: Medication refill Time Seen by Provider: 10/26/18 09:46 Onset: This morning Pain Level: Denies Context: Patient has a history of diabetes high cholesterol and high blood pressure. Patient states she took the last dose of her medications this morning and needs a refill of her prescriptions. Patient tried to get an appointment with her primary doctor although they wanted to $100 to be seen. Patient states she does not have money to see her primary doctor so came here for refill. Patient states she is in the process of following up with the [facility] next week. Associated Symptoms: None Exacerbated by: Denies Similar symptoms previously: Yes Recently seen / treated by doctor: No - ROS ROS below otherwise negative: Yes Systems Reviewed and Negative: Yes All other systems reviewed and negative - CONSTITUTIONAL Constitutional: DENIES: Fever - NEURO Neurology: DENIES: Headache - CARDIOVASCULAR Cardiovascular: DENIES: Chest pain - RESPIRATORY Respiratory: DENIES: Trouble Breathing - REPRODUCTIVE Reproductive: DENIES: : - DERM Skin Color: Normal Skin Problems: None Past Medical History - General Information source: Patient - Social History Smoking Status: Current Every Day Smoker Smoking Education Provided: Yes Frequency of alcohol use: None Drug Abuse: None Occupation: None Family History: Arthritis, CAD - Father with heart attack at 55., CVA, DM, Hyperlipidemia, Hypertension, Thyroid Disfunction - Past Medical History Cardiac Medical History: Reports: Hx Hypercholesterolemia, Hx Hypertension Pulmonary Medical History: Reports: Hx Asthma Neurological Medical History: Reports: Hx Migraine Endocrine Medical History: Reports: Hx Diabetes Mellitus Type 2 Renal/ Medical History: Reports: Hx Ovarian Cysts. Denies: Hx Peritoneal Dialysis GI Medical History: Reports: Hx Gastroesophageal Reflux Disease, Hx Ulcer Musculoskeletal Medical History: Reports Hx Arthritis Psychiatric Medical History: Reports: Hx Attention Deficit Hyperactivity Disorder Past Surgical History: Reports: Hx Adenoidectomy, Hx Section, Hx Cholecystectomy, Hx Gynecologic Surgery - Ovarian cyst resection, Hx Oral Surgery - [place] teeth, Hx Tonsillectomy, Hx Tubal Ligation - Immunizations Hx Diphtheria, Pertussis, Tetanus Vaccination: Yes Hx Pneumococcal Vaccination: 01/07/13 Vertical Provider Document - CONSTITUTIONAL Agree With Documented VS: Yes Exam Limitations: No Limitations General Appearance: WD/WN, No Apparent Distress - INFECTION CONTROL TRAVEL OUTSIDE OF THE [place] IN LAST 30 DAYS: No - HEENT HEENT: Atraumatic, Normocephalic - NECK Neck: Normal Inspection, Supple - RESPIRATORY Respiratory: Breath Sounds Normal, No Respiratory Distress - CARDIOVASCULAR Cardiovascular: Regular Rate, Regular Rhythm, No Murmur - BACK Back: Normal Inspection - MUSCULOSKELETAL/EXTREMETIES Musculoskeletal/Extremeties: MAEW - NEURO Level of Consciousness: Awake, Alert, Appropriate - DERM Integumentary: Warm, Dry Course - Re-evaluation Re-evalutation: 10/26/18 10:17 Patient advised that the visit in the emergency department will likely be more expensive than it would be to see her primary doctor. Patient encouraged to see her primary doctor for refills of her medication in the future. Patient without any complaints today only requesting a refill of her medications. Patient advised that the emergency department does not manage chronic medical conditions and that a primary doctor would be more appropriate to refill her medications. 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: without care home use Diabetes mellitus complication status: without complication Qualified Code(s): E11.9 - Type 2 diabetes mellitus without complications Condition: Stable Disposition: HOME, SELF-CARE Instructions: Diabetes ([facility]), High Blood Pressure ([facility]) Additional Instructions: Return immediately for any new or worsening symptoms Followup with your primary care provider, call tomorrow to make a followup appointment Prescriptions: Fenofibrate Nanocrystallized [Tricor] 145 mg PO DAILY #15 tablet Lisinopril/Hydrochlorothiazide [Lisinopril-Hctz 10-12.5 mg Tab] 1 each PO DAILY #15 tablet Metformin HCl 500 mg PO BID #30 tablet Metoprolol Succinate [Toprol Xl] 50 mg PO DAILY #15 tab.er.24h Omeprazole 20 mg PO DAILY #15 capsule. Simvastatin 20 mg PO DAILY #15 tablet Forms: Smoking Cessation Education Referrals: [facility] [Provider Group] - Follow up tomorrow
[2018-10-26 10:37] VITALS: BP 127/72
== END 2018-10-26 10:37 | disposition home or self-care (01) ==
LOC: ER 08:24
DX: Z76.0 Encounter for issue of repeat prescription (principal); E78.00 Pure hypercholesterolemia, unspecified; I10 Essential (primary) hypertension; E11.9 Type 2 diabetes mellitus without complications
CPT/HCPCS: 99281

== ENCOUNTER 2018-12-25 08:15 | Emergency (ER) | payer SELFPAY ==
[2018-12-25 09:34] LABS: ABSOLUTE BASOPHILS # (AUTO) 0.1 10^3/uL (0.0-0.2); ABSOLUTE EOSINOPHILS # (AUTO) 0.3 10^3/uL (0.0-0.6); ABSOLUTE LYMPHOCYTES (AUTO) 3.1 10^3/uL (0.5-4.7); ABSOLUTE MONOCYTES (AUTO) 0.7 10^3/uL (0.1-1.4); ABSOLUTE NEUT (AUTO) 6.9 10^3/uL (1.7-8.2); BASOPHILS % (AUTO) 0.9 % (0-2); EOSINOPHILS % (AUTO) 2.7 % (0-6); HEMATOCRIT 39.9 % (36.0-47.0); HEMOGLOBIN 13.7 g/dL (12.0-15.5); LYMPHOCYTES % (AUTO) 28.1 % (13-45); MEAN CORPUSCULAR HEMOGLOBIN 29.2 pg (27.0-33.4); MEAN CORPUSCULAR HGB CONC 34.3 g/dL (32.0-36.0); MEAN CORPUSCULAR VOLUME 85 fl (80-97); MONOCYTES % (AUTO) 6.6 % (3-13); PLATELET COUNT 270 10^3/uL (150-450); RED CELL DISTRIBUTION WIDTH 13.7 % (11.5-14.0); SEGMENTED NEUTROPHILS % (AUTO) 61.7 % (42-78); TOTAL CELLS COUNTED % (AUTO) 100 %; WHITE BLOOD COUNT 11.2 10^3/uL (4.0-10.5)
[2018-12-25] MEDS ORDERED: CYCLOBENZAPRINE HCL 10 MG TABLET PO ONE (09:35)
[2018-12-25 09:36] LABS: APPEARANCE,URINE CLEAR; BILIRUBIN,URINE NEGATIVE (NEGATIVE); COLOR,URINE STRAW; GLUCOSE, URINE NEGATIVE (NEGATIVE); KETONES,URINE NEGATIVE (NEGATIVE); LEUKOCYTE ESTERASE,URINE NEGATIVE (NEGATIVE); NITRITE,URINE NEGATIVE (NEGATIVE); PROTEIN,URINE NEGATIVE (NEGATIVE); URINE SPECIFIC GRAVITY 1.008; UROBILINOGEN,URINE NEGATIVE mg/dL (<2.0)
--- NOTE | 2018-12-25 09:37 | ER Document Report ---
ED Medical Screen (RME) - General Chief Complaint: Flank Pain Stated Complaint: FLANK PAIN Time Seen by Provider: 12/25/18 09:21 Primary Care Provider: JEANNIE RICO PA-C [Primary Care Provider] - Follow up as needed Mode of Arrival: Ambulatory Information source: Patient Notes: Patient is an otherwise healthy 48-year-old female presents the emergency department chief complaint of left flank pain/back pain. Patient reports pain has been going on for 2 weeks. Patient reports pain is worse with a deep breath. She reports she has been trying to take ibuprofen with minimal relief. Patient denies any abdominal pain, dysuria or fever. Exam: Tenderness to palpation to paraspinous muscles in the lumbar and thoracic region. I have greeted and performed a rapid initial assessment of this patient. A comprehensive ED assessment and evaluation of the patient, analysis of test results and completion of the medical decision making process will be conducted by additional ED providers. I have specifically instructed the patient or family members with the patient to immediately return to any nursing staff should anything change in the patient's condition or with their chief complaint. This medical record was dictated with voice recognizing software. There may be grammatical, syntax errors that are unintended. TRAVEL OUTSIDE OF THE [place] IN LAST 30 DAYS: No - Related Data Allergies/Adverse Reactions: divalproex sodium [From Depakote] Allergy (Verified 10/26/18 08:33) hydromorphone HCl [From Dilaudid] Allergy (Verified 10/26/18 08:33) morphine [Morphine] Allergy (Verified 10/26/18 08:33) nalbuphine HCl [From Nubain] Allergy (Verified 10/26/18 08:33) niacin [Niacin] Allergy (Verified 10/26/18 08:33) oxycodone HCl [From Percocet] Allergy (Verified 10/26/18 08:33) Past Medical History - Past Medical History Cardiac Medical History: Reports: Hx Hypercholesterolemia, Hx Hypertension Pulmonary Medical History: Reports: Hx Asthma Neurological Medical History: Reports: Hx Migraine Endocrine Medical History: Reports: Hx Diabetes Mellitus Type 2 Renal/ Medical History: Reports: Hx Ovarian Cysts. Denies: Hx Peritoneal Dialysis GI Medical History: Reports: Hx Gastroesophageal Reflux Disease, Hx Ulcer Musculoskeltal Medical History: Reports Hx Arthritis Psychiatric Medical History: Reports: Hx Attention Deficit Hyperactivity Disorder Past Surgical History: Reports: Hx Adenoidectomy, Hx Section, Hx Cholecystectomy, Hx Gynecologic Surgery - Ovarian cyst resection, Hx Oral Surgery - [place] teeth, Hx Tonsillectomy, Hx Tubal Ligation - Immunizations Hx Diphtheria, Pertussis, Tetanus Vaccination: Yes Physical Exam - Vital signs Vitals: Temp Pulse Resp BP Pulse Ox 98.4 F 71 20 153/79 H 97 12/25/18 08:26 12/25/18 08:26 12/25/18 08:26 12/25/18 08:26 12/25/18 08:26 Course - Vital Signs Vital signs: Temp Pulse Resp BP Pulse Ox 98.4 F 71 20 153/79 H 97 12/25/18 08:26 12/25/18 08:26 12/25/18 08:26 12/25/18 08:26 12/25/18 08:26 - Laboratory Result Diagrams: 12/25/18 09:15 12/25/18 09:15 Doctor's Discharge - Discharge Referrals: JEANNIE RICO PA-C [Primary Care Provider] - Follow up as needed
[2018-12-25 09:40] LABS: ALBUMIN 4.2 g/dL (3.5-5.0); ALKALINE PHOSPHATASE 83 U/L (38-126); ANION GAP 9 (5-19); ASPARTATE AMINO TRANSFERASE 17 U/L (14-36); BILIRUBIN,DIRECT 0.2 mg/dL (0.0-0.4); BILIRUBIN,TOTAL 0.3 mg/dL (0.2-1.3); BLOOD UREA NITROGEN 14 mg/dL (7-20); CALCIUM 9.5 mg/dL (8.4-10.2); CARBON DIOXIDE 26 mmol/L (22-30); CHLORIDE 101 mmol/L (98-107); GLUCOSE 205 mg/dL (75-110); POTASSIUM 4.4 mmol/L (3.6-5.0); TOTAL PROTEIN 6.7 g/dL (6.3-8.2)
--- NOTE | 2018-12-25 10:30 | RADIOLOGY REPORT (SQ) ---
EXAM DESCRIPTION: RIBS LEFT W/PA CHEST COMPLETED DATE/TIME: 12/25/2018 10:15 am REASON FOR STUDY: L flank/rib pain COMPARISON: None. TECHNIQUE: Frontal view of the chest and additional views of the left ribs acquired. NUMBER OF VIEWS: Four views LIMITATIONS: None. FINDINGS: FRONTAL CXR: No pneumothorax. No pleural effusion. No atelectasis or infiltrates. RIBS: No displaced rib fractures. No lytic or blastic bony lesions. OTHER: No other significant finding. IMPRESSION: NO PNEUMOTHORAX. NO DISPLACED RIB FRACTURES. COMMENT: SITE OF TRAUMA/COMPLAINT MARKED/STAMP COMPLETED: No TECHNICAL DOCUMENTATION: JOB ID: [id number] [employer]- All Rights Reserved Reading location - IP/workstation name: [email or web address]
--- NOTE | 2018-12-25 10:34 | ER Document Report ---
ED General - General Chief Complaint: Flank Pain Stated Complaint: FLANK PAIN Time Seen by Provider: 12/25/18 09:21 Primary Care Provider: JEANNIE RICO PA-C [NO LOCAL MD] - Follow up as needed Mode of Arrival: Ambulatory Information source: Patient Notes: This 48-year-old female patient comes emergency room complaining of left flank and left upper quadrant abdominal pain for the past 2 weeks. She states it is getting worse. It is made worse with movement, particularly involving movement of the left upper extremity with pulling and lifting. 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 There is no nausea, vomiting, diarrhea, chest pain, fevers or chills. There is no urinary frequency or dysuria. TRAVEL OUTSIDE OF THE [place] IN LAST 30 DAYS: No - Related Data Allergies/Adverse Reactions: divalproex sodium [From Depakote] Allergy (Verified 10/26/18 08:33) hydromorphone HCl [From Dilaudid] Allergy (Verified 10/26/18 08:33) morphine [Morphine] Allergy (Verified 10/26/18 08:33) nalbuphine HCl [From Nubain] Allergy (Verified 10/26/18 08:33) niacin [Niacin] Allergy (Verified 10/26/18 08:33) oxycodone HCl [From Percocet] Allergy (Verified 10/26/18 08:33) Past Medical History - General Information source: Patient - Social History Smoking Status: Current Every Day Smoker Cigarette use (# per day): Yes - 1 PPD Chew tobacco use (# tins/day): No Smoking Education Provided: No Frequency of alcohol use: None Drug Abuse: None 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[employer] Lives with: Spouse/Significant other Family History: Arthritis, CAD - Father with heart attack at 55., CVA, DM, Hyperlipidemia, Hypertension, Thyroid Disfunction Patient has suicidal ideation: No Patient has homicidal ideation: No - Past Medical History Cardiac Medical History: Reports: Hx Hypercholesterolemia, Hx Hypertension Pulmonary Medical History: Reports: Hx Asthma Neurological Medical History: Reports: Hx Migraine Endocrine Medical History: Reports: Hx Diabetes Mellitus Type 2 Renal/ Medical History: Reports: Hx Ovarian Cysts GI Medical History: Reports: Hx Gastroesophageal Reflux Disease, Hx Ulcer Musculoskeletal Medical History: Reports Hx Arthritis Psychiatric Medical History: Reports: Hx Attention Deficit Hyperactivity Disorder Past Surgical History: Reports: Hx Adenoidectomy, Hx Section, Hx Cholecystectomy, Hx Gynecologic Surgery - Ovarian cyst resection, Hx Oral Surgery - [place] teeth, Hx Tonsillectomy, Hx Tubal Ligation - Immunizations Hx Diphtheria, Pertussis, Tetanus Vaccination: Yes Hx Pneumococcal Vaccination: 01/07/13 Review of Systems - Review of Systems Constitutional: No symptoms reported EENT: No symptoms reported Cardiovascular: No symptoms reported Respiratory: No symptoms reported Gastrointestinal: No symptoms reported Genitourinary: No symptoms reported Female Genitourinary: Post menopausal Musculoskeletal: See HPI Skin: No symptoms reported Hematologic/Lymphatic: No symptoms reported Neurological/Psychological: No symptoms reported Physical Exam - Vital signs Vitals: Temp Pulse Resp BP Pulse Ox 98.4 F 71 20 153/79 H 97 12/25/18 08:26 12/25/18 08:26 12/25/18 08:26 12/25/18 08:26 12/25/18 08:26 - General General appearance: Appears well, Alert In distress: None - HEENT Head: Normocephalic, Atraumatic Eyes: Normal Pupils: PERRL - Respiratory Respiratory status: No respiratory distress Breath sounds: Normal - Cardiovascular Rhythm: Regular - Abdominal Inspection: Normal Bowel sounds: Normal Tenderness: Tender - There is some tenderness in the left upper lateral muscle wall. - Back Back: Tender - Tenderness in the left trapezius dorsi muscle region. There is no rash seen. There is no tenderness in the left lower lumbar and sacral back region. - Extremities General upper extremity: Normal inspection General lower extremity: Normal inspection - Neurological Neuro grossly intact: Yes - Psychological Associated symptoms: Normal affect, Normal mood - Skin Skin Temperature: Warm Skin Moisture: Dry Skin Color: Normal Course - Vital Signs Vital signs: Temp Pulse Resp BP Pulse Ox 97.7 F 66 16 138/71 H 97 12/25/18 10:45 12/25/18 10:45 12/25/18 10:45 12/25/18 10:45 12/25/18 10:45 - Laboratory Result Diagrams: 12/25/18 09:15 12/25/18 09:15 Laboratory results interpreted by me: 12/25/18 12/25/18 09:15 09:15 WBC 11.2 H Sodium 136.2 L Glucose 205 H - Diagnostic Test Radiology reviewed: Image reviewed, Reports reviewed - Chest x-ray with left ribs is unremarkable. Discharge - Discharge Clinical Impression: Strain of latissimus dorsi muscle Qualifiers: Encounter type: initial encounter Qualified Code(s): S29.012A - Strain of muscle and tendon of back wall of thorax, initial encounter Condition: Stable Disposition: HOME, SELF-CARE Additional Instructions: Latissimus Dorsi Muscle Strain: You have strained the left latissimus dorsi muscle. This often occurs with strenuous exertion, or during an injury that suddenly stretches the muscle. The seriousness of a strain varies. Some strains heal within days, others cause problems for months. X-rays cannot show a muscle strain. X-rays are taken only if symptoms suggest that a fracture could be present. The usual treatment of a muscle strain is rest and ice packs. Sometimes, a sling, splint, or crutches may be necessary to rest the muscle. The muscle can be used again once pain subsides. Severe strains require a special exercise and stretching program to prevent permanent stiffness and disability. Your doctor will advise you if this will be necessary. Call the doctor immediately if pain or swelling becomes severe, or if numbness or discoloration develop. Take the muscle relaxers as prescribed. Use moist heat to the painful ribs in the evenings. Take ibuprofen 800 mg every 8 hours. Follow-up with your doctor if not improving. RETURN TO THE EMERGENCY ROOM IF ANY NEW OR WORSENING SYMPTOMS. Prescriptions: Cyclobenzaprine HCl [Flexeril 5 mg Tablet] 5 mg PO TID PRN #15 tablet PRN Reason: Referrals: JEANNIE RICO PA-C [NO LOCAL MD] - Follow up as needed
[2018-12-25 10:46] VITALS: BP 138/71
== END 2018-12-25 10:45 | disposition home or self-care (01) ==
LOC: ER 08:15
DX: S29.012A Strain of muscle and tendon of back wall of thorax, initial encounter (principal); R10.12 Left upper quadrant pain; X58.XXXA Exposure to other specified factors, initial encounter; F17.210 Nicotine dependence, cigarettes, uncomplicated; E78.00 Pure hypercholesterolemia, unspecified; I10 Essential (primary) hypertension; E11.9 Type 2 diabetes mellitus without complications; Z88.6 Allergy status to analgesic agent
CPT/HCPCS: 36415; 80053; 81001; 83690; 85025

== ENCOUNTER 2019-05-04 07:52 | Emergency (ER) | payer SELFPAY ==
[2019-05-04] MEDS ORDERED: KETOROLAC TROMETHAMINE 60 MG/2 ML SDV IM ONE (10:03)
[2019-05-04] MEDS ORDERED: DIPHENHYDRAMINE HCL 50 MG/ML VIAL IM ONE (10:03)
[2019-05-04] MEDS ORDERED: PROCHLORPERAZINE EDISYLATE INJ 10 MG/2 ML VIAL IM ONE (10:04)
--- NOTE | 2019-05-04 10:05 | ER Document Report ---
HPI - HPI Time Seen by Provider: 05/04/19 09:44 Pain Level: 4 Notes: 48-year-old female patient presents emergency department chief complaint of headache. Patient reports history of migraines, states this headache started yesterday at about 1 AM. She reports associated light sensitivity. She states this is typical of her usual migraines. She states she gets migraines 2-3 times yearly. She states she tried taking ibuprofen yesterday without relief. - CONSTITUTIONAL Constitutional: DENIES: Fever, Chills - NEURO Neurology: REPORTS: Headache - REPRODUCTIVE Reproductive: DENIES: : Past Medical History - General Information source: Patient - Social History Smoking Status: Current Every Day Smoker Frequency of alcohol use: None Drug Abuse: None Family History: Arthritis, CAD - Father with heart attack at 55., CVA, DM, Hyperlipidemia, Hypertension, Thyroid Disfunction Patient has suicidal ideation: No Patient has homicidal ideation: No - Past Medical History Cardiac Medical History: Reports: Hx Hypercholesterolemia, Hx Hypertension Pulmonary Medical History: Reports: Hx Asthma Neurological Medical History: Reports: Hx Migraine Endocrine Medical History: Reports: Hx Diabetes Mellitus Type 2 Renal/ Medical History: Reports: Hx Ovarian Cysts. Denies: Hx Peritoneal Dialysis GI Medical History: Reports: Hx Gastroesophageal Reflux Disease, Hx Ulcer Musculoskeletal Medical History: Reports Hx Arthritis Psychiatric Medical History: Reports: Hx Attention Deficit Hyperactivity Disorde r Past Surgical History: Reports: Hx Adenoidectomy, Hx Section, Hx Cholecystectomy, Hx Gynecologic Surgery - Ovarian cyst resection, Hx Oral Surgery - [place] teeth, Hx Tonsillectomy, Hx Tubal Ligation - Immunizations Hx Diphtheria, Pertussis, Tetanus Vaccination: Yes Hx Pneumococcal Vaccination: 01/07/13 Vertical Provider Document - CONSTITUTIONAL Notes: PHYSICAL EXAMINATION: GENERAL: Well-appearing, well-nourished and in no acute distress. HEAD: Atraumatic, normocephalic. EYES: Pupils equal round extraocular movements intact, conjunctiva are normal. ENT: Nares patent NECK: Normal range of motion LUNGS: No respiratory distress Musculoskeletal: Normal range of motion NEUROLOGICAL: Face symmetric. Tongue protrudes midline. Extraocular motions intact. Pupils are 2 mm and equally reactive. Normal speech, normal gait. 5 out of 5 strength in both the distal and proximal upper and lower extremities bilaterally. Sensation is grossly intact throughout. Finger to nose testing normal. Pronator drift normal. PSYCH: Normal mood, normal affect. SKIN: Warm, Dry, normal turgor, no rashes or lesions noted. - INFECTION CONTROL TRAVEL OUTSIDE OF THE [place] IN LAST 30 DAYS: No Course - Re-evaluation Re-evalutation: 05/04/19 10:05 Patient presenting with typical migraine symptoms. Patient has a history of dominguez e. Patient states this feels similar to her usual migraines. Will give patient medications, she declines IV medications, will give medications IM. 05/04/19 11:13 Patient reports headache improved after administration of medications. Patient will be discharged home at this time. - Vital Signs Vital signs: Temp Pulse Resp BP Pulse Ox 98.5 F 73 16 142/74 H 97 05/04/19 08:12 05/04/19 08:12 05/04/19 08:12 05/04/19 08:12 05/04/19 08:12 Discharge - Discharge Clinical Impression: Migraine headache Qualifiers: Migraine type: unspecified Status migrainosus presence: without status migrainosus Intractability: not intractable Qualified Code(s): G43.909 - Migraine, unspecified, not intractable, without status migrainosus Condition: Stable Disposition: HOME, SELF-CARE Additional Instructions: You were seen today for a migraine headache. Please follow-up with your primary care doctor regarding today's ED visit. Return to emergency department immediately if you develop a headache that gets to its maximum severity within 20 minutes of onset, you pass out, you develop weakness, numbness, changes in your vision, become unable to keep any fluids down for more than 12 hours, or develop a fever greater than 100.4 degrees Fahrenheit. If you develop a similar migraine headache in the future I recommend that you immediately take 600 mg of ibuprofen and 50 mg of Benadryl and go to sleep as quickly as possible. This can often prevent your migraine headache from becoming severe. If this does not work, please take the medication that I have prescribed. Prescriptions: Butalb/Acetaminophen/Caffeine [Fioricet 50-300-40 mg Capsule] 1 cap PO Q4 PRN #30 cap PRN Reason:
[2019-05-04 11:29] VITALS: BP 120/73
== END 2019-05-04 11:30 | disposition home or self-care (01) ==
LOC: ER 07:52
DX: G43.909 Migraine, unspecified, not intractable, without status migrainosus (principal); H53.149 Visual discomfort, unspecified; F17.200 Nicotine dependence, unspecified, uncomplicated; I10 Essential (primary) hypertension; J45.909 Unspecified asthma, uncomplicated; E11.9 Type 2 diabetes mellitus without complications
CPT/HCPCS: 99283; 96372; 96374; J1200; J1885; J0780

== ENCOUNTER 2019-08-28 13:19 | Emergency (ER) | payer SELFPAY ==
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
[2019-08-28 15:07] LABS: ABSOLUTE BASOPHILS # (AUTO) 0.1 10^3/uL (0.0-0.2); ABSOLUTE EOSINOPHILS # (AUTO) 0.2 10^3/uL (0.0-0.6); ABSOLUTE LYMPHOCYTES (AUTO) 4.1 10^3/uL (0.5-4.7); ABSOLUTE MONOCYTES (AUTO) 0.6 10^3/uL (0.1-1.4); ABSOLUTE NEUT (AUTO) 5.8 10^3/uL (1.7-8.2); EOSINOPHILS % (AUTO) 1.7 % (0-6); HEMATOCRIT 42.4 % (36.0-47.0); HEMOGLOBIN 15.1 g/dL (12.0-15.5); LYMPHOCYTES % (AUTO) 37.7 % (13-45); MEAN CORPUSCULAR HEMOGLOBIN 29.5 pg (27.0-33.4); MEAN CORPUSCULAR HGB CONC 35.6 g/dL (32.0-36.0); MEAN CORPUSCULAR VOLUME 83 fl (80-97); MONOCYTES % (AUTO) 5.6 % (3-13); PLATELET COUNT 273 10^3/uL (150-450); RED BLOOD COUNT 5.12 10^6/uL (3.72-5.28); RED CELL DISTRIBUTION WIDTH 13.7 % (11.5-14.0); TOTAL CELLS COUNTED % (AUTO) 100 %; WHITE BLOOD COUNT 10.8 10^3/uL (4.0-10.5)
[2019-08-28 15:09] LABS: APPEARANCE,URINE CLEAR; BILIRUBIN,URINE NEGATIVE (NEGATIVE); COLOR,URINE STRAW; GLUCOSE, URINE NEGATIVE (NEGATIVE); KETONES,URINE NEGATIVE (NEGATIVE); LEUKOCYTE ESTERASE,URINE NEGATIVE (NEGATIVE); NITRITE,URINE NEGATIVE (NEGATIVE); PROTEIN,URINE NEGATIVE (NEGATIVE); URINE SPECIFIC GRAVITY 1.006; UROBILINOGEN,URINE NEGATIVE mg/dL (<2.0)
[2019-08-28 15:24] LABS: ALBUMIN 4.5 g/dL (3.5-5.0); ALKALINE PHOSPHATASE 94 U/L (38-126); ANION GAP 7 (5-19); ASPARTATE AMINO TRANSFERASE 18 U/L (14-36); BILIRUBIN,TOTAL 0.4 mg/dL (0.2-1.3); BLOOD UREA NITROGEN 15 mg/dL (7-20); CALCIUM 9.7 mg/dL (8.4-10.2); CARBON DIOXIDE 27 mmol/L (22-30); CHLORIDE 102 mmol/L (98-107); GLUCOSE 174 mg/dL (75-110); POTASSIUM 4.4 mmol/L (3.6-5.0); TOTAL PROTEIN 7.5 g/dL (6.3-8.2)
[2019-08-28 15:25] LABS: URINE AMPHETAMINES SCREEN NEGATIVE; URINE BARBITURATES SCREEN NEGATIVE; URINE BENZODIAZEPINES SCREEN NEGATIVE; URINE COCAINE SCREEN NEGATIVE; URINE MARIJUANA (THC) SCREEN NEGATIVE; URINE METHADONE SCREEN NEGATIVE; URINE PHENCYCLIDINE SCREEN NEGATIVE
[2019-08-28 15:26] LABS: ACETAMINOPHEN < 10 ug/mL (10-30); ALCOHOL < 10 mg/dL (NONE DETECTED); SALICYLATE < 1.0 mg/dL (2.0-20.0)
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
[2019-08-28] MEDS ORDERED: ALPRAZOLAM 0.5 MG TABLET PO PRN (18:50)
[2019-08-28] MEDS: BUSPIRONE HCL 10 MG TABLET PO SCH (19:35)
[2019-08-28] MEDS: OLANZAPINE 2.5 MG TABLET PO SCH (19:35)
--- NOTE | 2019-08-29 07:26 | EKG REPORT ---
SEVERITY:- NORMAL ECG - SINUS RHYTHM : Confirmed by: Michael Fitzpatrick 29-Aug-2019 07:25:02
[2019-08-29] MEDS: OLANZAPINE 2.5 MG TABLET PO SCH (10:03)
[2019-08-29] MEDS: BUSPIRONE HCL 10 MG TABLET PO SCH (10:04)
[2019-08-29] MEDS ORDERED: HYDROCHLOROTHIAZIDE 12.5 MG TABLET PO ONE (10:09)
[2019-08-29] MEDS ORDERED: METFORMIN HCL 500 MG TABLET PO ONE (10:09)
[2019-08-29] MEDS ORDERED: GLIPIZIDE 5 MG TABLET PO ONE (10:09)
[2019-08-29] MEDS ORDERED: METOPROLOL TARTRATE 50 MG TABLET PO ONE (10:09)
[2019-08-29] MEDS ORDERED: LISINOPRIL 10 MG TABLET PO ONE (10:09)
[2019-08-29] MEDS ORDERED: METOPROLOL TARTRATE 25 MG TABLET PO ONE (10:11)
--- NOTE | 2019-08-29 11:29 | ER Document Report ---
Doctor's Note Notes: 08/29/19 11:28 PHYSICAL EXAMINATION: GENERAL: Well-appearing and in no acute distress. HEAD: Atraumatic, normocephalic. EYES: sclera anicteric, conjunctiva are normal. ENT: nares patent. Moist mucous membranes. NECK: Normal range of motion, supple LUNGS: CTAB and equal. No wheezes rales or rhonchi. HEART: Regular rate and rhythm without murmurs EXTREMITIES: Normal range of motion, no pitting edema. NEUROLOGICAL: Cranial nerves grossly intact. Normal speech. PSYCH: Normal mood, normal affect. SKIN: Warm, Dry, normal turgor, no rashes or lesions noted Patient appears medically stable for discharge pending mental health clearance. Patient denies any complaints at this time. 08/29/19 15:01 Patient cleared from mental health team for discharge, patient does not meet IVC criteria. Mental health team recommends adding Zyprexa 2.5 mg orally twice a day, BuSpar 5 mg orally twice a day. Patient will be following up with [facility] on an outpatient basis.
--- NOTE | 2019-08-29 14:16 | PSYCHOLOGICAL NOTE ---
Psych Note - Psych Note Date seen by psych provider: 08/29/19 Time seen by psych provider: 12:50 Psych Note: Reason for Consult: Suicidal ideation Check in conducted with patient: Patient report she is tired but denies any current suicidal ideation. She continued to disclose when she was having thought harm she did not have intent. She reports she has an upcoming appointment with [facility] and plans to continue working with [facility] while establishing services. Patient's mood is euthymic with congruent affect. She provides consent to have her daughter as part of her plan of care. 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 She states she know her son would never allow her to do something to harm herself. Medication recommendations per [facility]'s contracted psychiatrist Dr Madison MOHAMUD are as follows: Zyprexa 2.5MG, twice a day for mood stabilization Buspar 5MG, twice a day Discontinue Lexapro Continue home medication of Xanax as needed Therapeutic Intervention: Impression / Plan: Patient is recommended for rescind of 24-hour petition for evaluation and is cleared from acute psychiatric services. Rescinding paperwork as been placed in patient's chart. Medication recommendations have been provided. Patient has demonstrated good insight, judgment and impulse control during this acute stress event. Patient immediately went to [facility] to start medications. When she started to experience passive suicidal ideation (she denies intent) she contacted [facility] for assistance and came voluntarily to the emergency department for further help. Patient identifies a support network with her adult children. She engaged appropriately with the behavioral health staff to include psycho-education on use/abuse of benzodiazapines; psychoeducation on PTSD; Discussed the importance of self care; Discussed the abuse cycle, especially with substance abuse; Discussed Focus on good communication and adaptive stress relief; Focus on health, wellness and good nutrition yesterday and developing plan of care today. She reports she has made an appointment with [facility] for continued outpatient mental health services. She is recommended to engage in to medication management and therapeutic services. Dr. Garcia was consulted on the care and management of this patient; attending physician is in agreement with recommendations and disposition.
[2019-08-29 14:36] VITALS: BP 136/80
== END 2019-08-29 15:23 | disposition home or self-care (01) ==
LOC: ER 13:19
DX: R45.851 Suicidal ideations (principal); F32.9 Major depressive disorder, single episode, unspecified; F41.9 Anxiety disorder, unspecified; Z79.899 Other long term (current) drug therapy; Z88.8 Allergy status to other drugs, medicaments and biological substances; F17.200 Nicotine dependence, unspecified, uncomplicated; I10 Essential (primary) hypertension; J45.909 Unspecified asthma, uncomplicated; E11.9 Type 2 diabetes mellitus without complications
CPT/HCPCS: 93005; 36415; 80307 ×4; 84703; 85025; 80053; 81001; 93010; J3490 ×2; 99284

== ENCOUNTER 2019-12-14 16:38 | Emergency (ER) | payer SELFPAY ==
[2019-12-14] MEDS ORDERED: ACETAMINOPHEN 325 MG TABLET PO ONE (19:34)
[2019-12-14] MEDS ORDERED: IBUPROFEN 600 MG TABLET PO ONE (19:34)
--- NOTE | 2019-12-14 19:38 | ER Document Report ---
ED Medical Screen (RME) - General Chief Complaint: Hand Swelling Stated Complaint: RIGHT HAND PAIN/SWELLING Time Seen by Provider: 12/14/19 19:29 Primary Care Provider: JERRICA HENDERSON PA-C [Primary Care Provider] - Follow up as needed Notes: Who presents to the emergency department with 2 complaints. Her first complaint is that she has right hand pain. States that her is mainly in her third, fourth, and fifth digits. Patient states that she is having a hard time extending her digits. Patient denies any injury. She also has pain at her third, fourth, and fifth metatarsals. Her second complaint is of left knee pain. Denies any injury. Exam: Tenderness noted to left knee. Patient able to flex right hand digits with no difficulty, but is having a hard time extending third, fourth, and fifth digits. Concern for cellulitis or tenosynovitis. I have greeted and performed a rapid initial assessment of this patient. A comprehensive ED assessment and evaluation of the patient, analysis of test results and completion of medical decision making process will be conducted by an additional ED providers. TRAVEL OUTSIDE OF THE [place] IN LAST 30 DAYS: No - Related Data Allergies/Adverse Reactions: divalproex sodium [From Depakote] Allergy (Verified 10/26/18 08:33) hydromorphone HCl [From Dilaudid] Allergy (Verified 10/26/18 08:33) morphine [Morphine] Allergy (Verified 10/26/18 08:33) nalbuphine HCl [From Nubain] Allergy (Verified 10/26/18 08:33) niacin [Niacin] Allergy (Verified 10/26/18 08:33) oxycodone HCl [From Percocet] Allergy (Verified 10/26/18 08:33) Past Medical History - Past Medical History Cardiac Medical History: Reports: Hx Hypercholesterolemia, Hx Hypertension Pulmonary Medical History: Reports: Hx Asthma Neurological Medical History: Reports: Hx Migraine Endocrine Medical History: Reports: Hx Diabetes Mellitus Type 2 Renal/ Medical History: Reports: Hx Ovarian Cysts. Denies: Hx Peritoneal Dialysis GI Medical History: Reports: Hx Gastroesophageal Reflux Disease, Hx Ulcer Musculoskeltal Medical History: Reports Hx Arthritis Psychiatric Medical History: Reports: Hx Attention Deficit Hyperactivity Disorder Past Surgical History: Reports: Hx Adenoidectomy, Hx Section, Hx Cholecystectomy, Hx Gynecologic Surgery - Ovarian cyst resection, Hx Oral Surgery - [place] teeth, Hx Tonsillectomy, Hx Tubal Ligation - Immunizations Hx Diphtheria, Pertussis, Tetanus Vaccination: Yes Physical Exam - Vital signs Vitals: Temp Pulse Resp BP Pulse Ox 98.3 F 93 18 140/75 H 94 12/14/19 16:42 12/14/19 16:42 12/14/19 16:42 12/14/19 16:42 12/14/19 16:42 Course - Vital Signs Vital signs: Temp Pulse Resp BP Pulse Ox 98.3 F 93 18 140/75 H 94 12/14/19 16:42 12/14/19 16:42 12/14/19 16:42 12/14/19 16:42 12/14/19 16:42 Doctor's Discharge - Discharge Referrals: JERRICA HENDERSON PA-C [Primary Care Provider] - Follow up as needed
[2019-12-14 20:24] LABS: ABSOLUTE EOSINOPHILS # (AUTO) 0.3 10^3/uL (0.0-0.6); ABSOLUTE LYMPHOCYTES (AUTO) 5.2 10^3/uL (0.5-4.7); ABSOLUTE MONOCYTES (AUTO) 1.1 10^3/uL (0.1-1.4); ABSOLUTE NEUT (AUTO) 7.7 10^3/uL (1.7-8.2); BASOPHILS % (AUTO) 0.3 % (0-2); EOSINOPHILS % (AUTO) 2.2 % (0-6); HEMATOCRIT 42.9 % (36.0-47.0); HEMOGLOBIN 14.8 g/dL (12.0-15.5); LYMPHOCYTES % (AUTO) 36.2 % (13-45); MEAN CORPUSCULAR HEMOGLOBIN 29.2 pg (27.0-33.4); MEAN CORPUSCULAR HGB CONC 34.6 g/dL (32.0-36.0); MEAN CORPUSCULAR VOLUME 85 fl (80-97); MONOCYTES % (AUTO) 7.5 % (3-13); PLATELET COUNT 266 10^3/uL (150-450); RED BLOOD COUNT 5.08 10^6/uL (3.72-5.28); RED CELL DISTRIBUTION WIDTH 14.3 % (11.5-14.0); SEGMENTED NEUTROPHILS % (AUTO) 53.8 % (42-78); TOTAL CELLS COUNTED % (AUTO) 100 %; WHITE BLOOD COUNT 14.4 10^3/uL (4.0-10.5)
--- NOTE | 2019-12-14 20:31 | RADIOLOGY REPORT (SQ) ---
EXAM DESCRIPTION: XR KNEE 4 OR MORE VIEWS COMPLETED DATE/TME: 12/14/2019 19:34 CLINICAL HISTORY: 49 years Female left knee pain COMPARISON: None. TECHNIQUE: Left knee, four views FINDINGS: No acute fractures or dislocations are identified. No osseous destructive lesions. No joint effusion is noted. IMPRESSION: No acute fracture is identified.
--- NOTE | 2019-12-14 20:35 | RADIOLOGY REPORT (SQ) ---
EXAM DESCRIPTION: XR HAND 3 OR MORE VIEWS COMPLETED DATE/TME: 12/14/2019 19:34 CLINICAL HISTORY: 49 years ,Female right hand pain COMPARISON: None. TECHNIQUE: RIGHT hand, Three view FINDINGS: Tiny bony density adjacent to the ulna consistent with ulnar styloid fracture which is likely chronic but age indeterminant. Mild degenerative change at the radiocarpal joint space. Mild degenerative changes are also present at the interphalangeal joint spaces. No additional fracture noted. IMPRESSION: Small fracture fragment suggesting a chronic ulnar styloid fracture No acute fractures are identified. If symptoms persist, followup is recommended in 7-10 days.
[2019-12-14 20:53] LABS: ALBUMIN 4.1 g/dL (3.5-5.0); ALKALINE PHOSPHATASE 111 U/L (38-126); ANION GAP 10 (5-19); ASPARTATE AMINO TRANSFERASE 19 U/L (14-36); BILIRUBIN,TOTAL 0.3 mg/dL (0.2-1.3); BLOOD UREA NITROGEN 11 mg/dL (7-20); CALCIUM 9.5 mg/dL (8.4-10.2); CARBON DIOXIDE 25 mmol/L (22-30); CHLORIDE 97 mmol/L (98-107); GLUCOSE 327 mg/dL (75-110); POTASSIUM 4.5 mmol/L (3.6-5.0); TOTAL PROTEIN 6.9 g/dL (6.3-8.2)
[2019-12-15] MEDS ORDERED: ACETAMINOPHEN WITH CODEINE #3 TABLET PO ONE (04:18)
[2019-12-15] MEDS ORDERED: SULFAMETHOXAZOLE/TRIMETHOPRIM 800-160 MG TABLET PO ONE (04:19)
[2019-12-15] MEDS ORDERED: CEPHALEXIN 500 MG CAPSULE PO ONE (04:19)
--- NOTE | 2019-12-15 04:25 | ER Document Report ---
ED General - General Chief Complaint: Hand Swelling Stated Complaint: RIGHT HAND PAIN/SWELLING Time Seen by Provider: 12/14/19 19:29 Primary Care Provider: JERRICA HENDERSON PA-C [[facility]] - Follow up as needed TRAVEL OUTSIDE OF THE [place] IN LAST 30 DAYS: No - HPI Notes: 49-year-old female history of hypertension, hyperlipidemia, diabetes presents with right hand swelling and pain x2 days. Pain started gradually and gradually worsened, patient does not remember any trauma to hands, has had swelling to right third fourth and fifth digits with tenderness and pain with moving. Patient still able to move digits however and has no weakness or numbness. Patient otherwise feels well and denies any fever or vomiting. Patient also denies prior injuries, prior episodes, drug use - Related Data Allergies/Adverse Reactions: divalproex sodium [From Depakote] Allergy (Verified 10/26/18 08:33) hydromorphone HCl [From Dilaudid] Allergy (Verified 10/26/18 08:33) morphine [Morphine] Allergy (Verified 10/26/18 08:33) nalbuphine HCl [From Nubain] Allergy (Verified 10/26/18 08:33) niacin [Niacin] Allergy (Verified 10/26/18 08:33) oxycodone HCl [From Percocet] Allergy (Verified 10/26/18 08:33) Past Medical History - General Information source: Patient - Social History Smoking Status: Current Every Day Smoker Family History: Arthritis, CAD - Father with heart attack at 55., CVA, DM, Hyperlipidemia, Hypertension, Thyroid Disfunction - Past Medical History Cardiac Medical History: Reports: Hx Hypercholesterolemia, Hx Hypertension Pulmonary Medical History: Reports: Hx Asthma Neurological Medical History: Reports: Hx Migraine Endocrine Medical History: Reports: Hx Diabetes Mellitus Type 2 Renal/ Medical History: Reports: Hx Ovarian Cysts. Denies: Hx Peritoneal Dialysis GI Medical History: Reports: Hx Gastroesophageal Reflux Disease, Hx Ulcer Musculoskeletal Medical History: Reports Hx Arthritis Psychiatric Medical History: Reports: Hx Attention Deficit Hyperactivity Disorder, Hx Depression Past Surgical History: Reports: Hx Adenoidectomy, Hx Section, Hx Cholecystectomy, Hx Gynecologic Surgery - Ovarian cyst resection, Hx Oral Surgery - [place] teeth, Hx Tonsillectomy, Hx Tubal Ligation - Immunizations Hx Diphtheria, Pertussis, Tetanus Vaccination: Yes Hx Pneumococcal Vaccination: 01/07/13 Review of Systems - Review of Systems Notes: REVIEW OF SYSTEMS: CONSTITUTIONAL : Denies fever, chills, or sweats. EENT: Denies recent cold/sinus symptoms, denies throat pain CARDIOVASCULAR: Denies chest pain, BECKA RESPIRATORY: Denies cough, denies shortness of breath. GASTROINTESTINAL: Denies abdominal pain, nausea/vomiting. GENITOURINARY: Denies difficulty urinating, painful urination. MUSCULOSKELETAL: Denies neck pain, back pain. SKIN: Denies rash or skin lesions. HEMATOLOGIC : Denies easy bruising or bleeding. LYMPHATIC: Denies swollen, enlarged glands. NEUROLOGICAL: Denies headache, denies change in gait. PSYCHIATRIC: Denies anxiety or stress or depression. Physical Exam - Vital signs Vitals: Temp Pulse Resp BP Pulse Ox 98.3 F 93 18 140/75 H 94 12/14/19 16:42 12/14/19 16:42 12/14/19 16:42 12/14/19 16:42 12/14/19 16:42 - Notes Notes: PHYSICAL EXAMINATION: GENERAL: Well-appearing, well-nourished and in no acute distress. HEAD: Atraumatic, normocephalic. EYES: Pupils equal round and appropriate constriction, sclera anicteric, conjunctiva are normal. ENT: nares patent, moist mucous membranes. NECK: Normal range of motion, supple without lymphadenopathy LUNGS: Breath sounds clear to auscultation bilaterally and equal. No wheezes rales or rhonchi. HEART: Regular rate and rhythm without murmurs ABDOMEN: Soft, nontender, no guarding, no masses EXTREMITIES: b/l radial pulses 2+, distal cap refill b/l <2s, full ROM at all upper extremity articulations b/l, strength 5/5 in all distributions, normal sensation, mild edema and erythema diffusely to 3rd, 4th, and 5th digits on right hand with mild tenderness diffusely, pain exacerbated by applying pressure to area between dorsal 4th and 5th metacarpals, no discharge, skin intact, no areas of fluctuance, no streaking erythema, no tenderness along extensor or flexor tendon distributions NEUROLOGICAL: Awake, alert, conversing appropriately, moves all extremities spontaneously. PSYCH: Normal mood, normal affect. SKIN: Warm, Dry, normal turgor Course - Re-evaluation Re-evalutation: 12/15/19 04:32 Patient presents with right hand pain. Patient previously complained of right knee pain but at this time says right knee pain is been present for a very long time and is not acutely changed that she does not want to have that looked at and patient has capacity to make this decision. no joint pain and no indication for arthrocentesis, no signs of flexor tenosynovitis or extensor tenosynovitis, no neuro deficits, no fracture on x-ray (shows chronic ulnar styloid fracture but patient had no recent injury and has no tenderness at the ulnar styloid). Likely ulnar nerve impingement with resultant neuropathy, possibly early cellulitis and will cover with antibiotics given patient is diabetic. First dose of antibiotics given here and pain control and will splint and referred to orthopedic surgery. Patient given extensive return to ED precautions which she demonstrated understanding of. Patient allergic to morphine and Dilaudid but says she has taken codeine in the past without incident. - Vital Signs Vital signs: Temp Pulse Resp BP Pulse Ox 98.3 F 93 18 140/75 H 94 12/14/19 16:42 12/14/19 16:42 12/14/19 16:42 12/14/19 16:42 12/14/19 16:42 - Laboratory Result Diagrams: 12/14/19 19:58 12/14/19 19:58 Laboratory results interpreted by me: 12/14/19 12/14/19 19:58 19:58 WBC 14.4 H RDW 14.3 H Absolute Lymphs (auto) 5.2 H Sodium 131.8 L Chloride 97 L Glucose 327 H Discharge - Discharge Clinical Impression: Hand pain, right Disposition: HOME, SELF-CARE Additional Instructions: Follow-up with orthopedic surgeon within 3 days. Return to the emergency department immediately if your pain worsens, worsening redness, spreading pain, weakness, numbness, fever, or any other worsening or alarming symptoms. Prescriptions: Acetaminophen with Codeine [Tylenol #3 Tablet] 1 each PO Q6HP PRN #6 tablet PRN Reason: Acetaminophen with Codeine [Tylenol #3 Tablet] 1 each PO Q6HP PRN #6 tablet PRN Reason: Sulfamethoxazole/Trimethoprim [Bactrim Ds Tablet] 1 tab PO BID 5 Days #10 tablet Cephalexin Monohydrate [Keflex 500 mg Capsule] 500 mg PO Q6H 5 Days #20 capsule Referrals: JERRICA HENDERSON PA-C [PHYSICIAN [facility]] - Follow up as needed ALLIE MATHEW MD [ACTIVE STAFF] - Follow up as needed
[2019-12-15 04:49] VITALS: BP 135/79
== END 2019-12-15 04:47 | disposition home or self-care (01) ==
LOC: ER 16:38
DX: M79.641 Pain in right hand (principal); L53.9 Erythematous condition, unspecified; R60.0 Localized edema; M25.561 Pain in right knee; I10 Essential (primary) hypertension; E11.9 Type 2 diabetes mellitus without complications; F17.200 Nicotine dependence, unspecified, uncomplicated; J45.909 Unspecified asthma, uncomplicated; Z88.8 Allergy status to other drugs, medicaments and biological substances; Z88.6 Allergy status to analgesic agent; Z88.5 Allergy status to narcotic agent
CPT/HCPCS: 36415; 80053; 85025; 87040; 99283

== ENCOUNTER → 2020-01-03 | Outpatient (CLI) | payer OTHER ==
[2020-01-03 09:21] LABS: ABSOLUTE BASOPHILS # (AUTO) 0.1 10^3/uL (0.0-0.2); ABSOLUTE EOSINOPHILS # (AUTO) 0.2 10^3/uL (0.0-0.6); ABSOLUTE LYMPHOCYTES (AUTO) 2.7 10^3/uL (0.5-4.7); ABSOLUTE MONOCYTES (AUTO) 0.8 10^3/uL (0.1-1.4); BASOPHILS % (AUTO) 1.1 % (0-2); HEMOGLOBIN 14.6 g/dL (12.0-15.5); LYMPHOCYTES % (AUTO) 27.7 % (13-45); MEAN CORPUSCULAR HEMOGLOBIN 28.7 pg (27.0-33.4); MEAN CORPUSCULAR HGB CONC 33.8 g/dL (32.0-36.0); MEAN CORPUSCULAR VOLUME 85 fl (80-97); MONOCYTES % (AUTO) 8.3 % (3-13); PLATELET COUNT 215 10^3/uL (150-450); RED BLOOD COUNT 5.07 10^6/uL (3.72-5.28); RED CELL DISTRIBUTION WIDTH 14.1 % (11.5-14.0); SEGMENTED NEUTROPHILS % (AUTO) 60.9 % (42-78); TOTAL CELLS COUNTED % (AUTO) 100 %; WHITE BLOOD COUNT 9.9 10^3/uL (4.0-10.5)
[2020-01-03 09:46] LABS: ALBUMIN 4.2 g/dL (3.5-5.0); ALKALINE PHOSPHATASE 145 U/L (38-126); ANION GAP 9 (5-19); ASPARTATE AMINO TRANSFERASE 15 U/L (14-36); BILIRUBIN,DIRECT 0.3 mg/dL (0.0-0.4); BILIRUBIN,TOTAL 0.4 mg/dL (0.2-1.3); BLOOD UREA NITROGEN 15 mg/dL (7-20); CALCIUM 9.8 mg/dL (8.4-10.2); CARBON DIOXIDE 25 mmol/L (22-30); CHLORIDE 101 mmol/L (98-107); CHOLESTEROL 250.27 mg/dL (0-200); GLUCOSE 376 mg/dL (75-110); POTASSIUM 4.5 mmol/L (3.6-5.0); TOTAL PROTEIN 6.9 g/dL (6.3-8.2); TRIGLYCERIDES 419 mg/dL (<150)
[2020-01-03 10:01] LABS: DIRECT LDL 138 mg/dL (<100)
== END ==
LOC: CCC 08:18
PROVIDERS: ATTEND Internal Medicine
DX: E11.9 Type 2 diabetes mellitus without complications (principal); I10 Essential (primary) hypertension; E78.5 Hyperlipidemia, unspecified
CPT/HCPCS: 36415; 80053; 80061; 83036; 84443; 85025

== ENCOUNTER → 2020-01-09 | Outpatient (CLI) | payer OTHER ==
[2020-01-09 10:17] LABS: ALKALINE PHOSPHATASE 106 U/L (38-126)
[2020-01-10 10:37] LABS: HEPATITIS B CORE AB TOT Negative (Negative); HEPATITIS C VIRUS AB <0.1 s/co ratio (0.0-0.9)
[2020-01-10 10:48] LABS: HEPATITIS B SURFACE AB QUAL Non Reactive (.)
== END ==
LOC: CCC 08:21
PROVIDERS: ATTEND Internal Medicine
DX: E11.9 Type 2 diabetes mellitus without complications (principal); E78.5 Hyperlipidemia, unspecified; R94.5 Abnormal results of liver function studies; R74.8 Abnormal levels of other serum enzymes; Z79.899 Other long term (current) drug therapy
CPT/HCPCS: 36415; 82977; 84075; 84080; 86704; 86705; 86706; 86803; 86804

== ENCOUNTER → 2020-02-29 | Outpatient (CLI) | payer BC ==
--- NOTE | 2020-03-03 13:05 | WOMENS IMAGING REPORT ---
EXAM DESCRIPTION: M[facility]IS [facility]AR[facility] 3D BILAT SCREEN IMAGES COMPLETED DATE/TIME: 02/29/2020 10:42 am [facility] ST[facility] FOR MALIGNANT NEOPLASM OF BREAST Z12.31 ENCNTR SCREEN MAMMOGRAM FOR MALIGNANT NEOPLASM OF [place]IS FELIPE COMPARISON: Baseline examination. EXAM PARAMETERS: Views: Standard craniocaudal and mediolateral oblique views of each breast recorded using digital acquisition and breast tomosynthesis. Read with the assistance of CAD. .[facility] - [employer] Version 9.2 LIMITATIONS: None. FINDINGS: No suspicious masses, suspicious calcifications or architectural distortion. No areas of c oncern. IMPRESSION: NEGATIVE MAMMOGRAM. BIRADS 1. BREAST DENSITY: b. There are scattered areas of fibroglandular density. BIRAD: ASSESSMENT: 1 NEGATIVE RECOMMENDATION: 1. ROUTINE SCREENING COMMENT: The patient has been notified of the results by letter per MQSA requirements. Additional no tification policies are in place for contacting patient with suspicious or incomplete findings. Quality ID #[id number]: [employer] recommends an annual screening mammogram for women aged 40 years or over. This facility utilizes a reminder system to ensure that all patients receive reminder letters, and/or direct phone calls for appointments. This includes reminders for routine scr eening mammograms, diagnostic mammograms, or other Breast Imaging Interventions when appropriate. Th is patient will be placed in the appropriate reminder system. TECHNICAL DOCUMENTATION: FINDING NUMBER: (1) ASSESSMENT: (1) JOB ID: [id number] 2010 [employer]- All Rights Reserved Reading location - IP/workstation name: [email or web address]
== END ==
LOC: WI 10:21
PROVIDERS: ATTEND Nurse Practitioner Family
DX: Z12.31 Encounter for screening mammogram for malignant neoplasm of breast (principal)
CPT/HCPCS: 77063